=== PATIENT | male | born 1945 | race Caucasian/White ===

== ENCOUNTER 2017-04-30 02:30 | Inpatient (IN) | payer OTHER, MEDICARE ==
[~2017-04-30] VITALS: Ht 167.6 cm; Wt 82.6 kg
[~2017-04-30 02:30] MED LIST: ASPIRIN EC81 M1 PO; BEVESPI AEROS10.7 GM PO; COLACE100 M1 PO; CRESTOR10 M1 PO; FERROUS SULFAT325 M3 PO; FLONASE ALLERG9.9 ML
--- NOTE | 2017-04-30 09:56 | Operative Report ---
Operative/Inv Procedure Report Surgery Date: 04/30/17 Name of Procedure: Right total knee arthroplasty #2 grafting of large tibial cyst Pre-Operative Diagnosis: Right knee primary osteoarthritis Post-Operative Diagnosis: Same Estimated Blood Loss: less than 50ml Surgeon/Blending Supervisor: KAL PAYTON,KENDRICK MICHAEL Anesthesia: block Implants: Olinda triathlon total knee system-right size 5 femur, size 6 tibia, 11 mm cruciate retaining polyethylene, 31 patella Drains: None Specimens: Femoral, tibial, patellar bone Microbiology: Urine Tourniquet: 56 minutes Complications: None Condition: Stable Operative Indication: Patient is a 71-year-old man with a long history of gradually worsening right knee pain. On examination he was found to have a significant varus deformity and antalgic gait as well as significant varus thrust. X-rays confirmed severe end-stage osteoarthritis. Patient underwent conservative measures but minimal relief. He wished to proceed with total knee arthroplasty after risks benefits and expectations of the surgical procedure were discussed which included but were not limited to persistent knee pain, need for subsequent surgery, infection , DVT, injury to blood vessel or nerve, anesthesia risks. Operative/Procedure Note Note: Patient was brought to the operating room and transferred to the operating table. Once under appropriate anesthesia the right lower extremity was prepped and draped in standard fashion. Preoperative IV antibiotics were given prophylactically. The leg was elevated exsanguinated tourniquet was inflated. A standard anterior incision was made for anticipated medial parapatellar approach to the knee. Incision was taken down sharply to the underlying retinaculum. Incision was made in the medial retinaculum extending into the quadriceps tendon medially. Small effusion was evacuated. Osteophytes were excised. There was tricompartmental osteoarthritic disease. Severe end-stage eburnated bone along the medial compartment. Laxity in the lateral aspect of the knee. Remnants of the medial lateral meniscal tissues were excised. Remnants of the ACL was excised. Knee was flexed patella was subluxed. The drill was used to enter the intramedullary canal for the intramedullary guide for the distal femoral cut. A 6 valgus cut was chosen. This cut was made while protecting the soft tissues with retractors. The femur was then sized to a size 5. Size 5 cutting guide was pinned in place and the cuts were made in standard fashion. I was satisfied with the preparation of the femur. I then turned my attention to the tibia. I placed the external tibial alignment guide in place for my tibial cut. The cutting block was pinned in position for a neutral cut from medial to lateral and reproducing patient's posterior slow- paced on preoperative templating and intraoperative measurements. Soft tissues were protected medially laterally as well as posteriorly the PCL retractor. The PCL was recessed. A large cyst was evaluated in the posterior aspect of the tibia and the central portion is extended all the way to the back wall the tibia and extended to the mid tibia. Soft tissues debrided for and within the cyst. There was sclerotic bone surrounding this area. I then turned my attention to balancing the knee. There was significant laxity laterally compared to medially. Soft tissues were balanced at that point time. I then measured the tibia to a size 6. A trial was used with a size 6 tibia size 5 femur and a 9 mm polyethylene. The knee was taken out into full extension. It was good full extension and stability in all planes however appeared that patient would most likely require a 11 mm insert this was to be determined and confirm later on the case. I then turned my attention to the patella. The patella was measured and the appropriate thickness was removed and then restored with a size 31 patella. The 3 lug holes were drilled as medially as possible to maximize patellar tracking. I was satisfied with patellar tracking. This was would be checked again after the tourniquet was deflated. I then marked my rotation of tibia drilled my 2 lug holes for the femur and removed all instruments from the knee. I then used the tibial punch to complete the preparation of the tibia with the appropriate position of the punch to match rotation I was predetermined by the trial. I then removed all his from its and copious irrigation followed. I used the anterior chamfer bone to plug the distal femur to minimize postoperative hemarthrosis and postoperative swelling. We also morselized portions of the condyles and filled the cystic defect in the tibia. This was done after copious irrigation of the bony surfaces. Cement was being mixed on the back table. Once it was ready was applied to the dry clean bony surfaces of the tibia. The size 6 tibia was impacted in place with the excess cement removed with curettes. Cement was applied to the dry clean bony surfaces of the femur. The size 5 femur was impacted in place and excess cement was removed with curettes. The 9 mm insert was placed in the knee and the knee was taken out to full extension. Cement was applied to the dry clean bony surfaces of the patella. The size 31 patella was impacted in place and excess cement was removed with a knife. As cement was hardening I did appear articular pericapsular injection of a cocktail which included ropivacaine with epinephrine and Toradol for postoperative pain and inflammation management. Once the cement was hardening took the knee through range of motion. Small pieces of excess cement were removed with osteotome. I then trialed 11 mm insert. I was satisfied with the stability in all planes with the 11 mm insert. Full extension extension. Good stability in full extension mid flexion and full flexion to gravity. I then removed the trial component copious irrigated tibial tray. I major there was no bone fragments, cement fragments, soft tissue and then I impacted the definitive size 11 mm cruciate retaining polyethylene into place. The locking mechanism was confirmed. Took the knee through range of motion. Again I was satisfied with the stability in all planes. I then copiously irrigated the knee. The tourniquet was deflated and hemostasis was obtained. There was no need for a drain. I then copious irrigation irrigated the knee and every level closure was followed by copious irrigation. The retinacular incision was closed in the quadriceps tendon was closed with interrupted #1 Vicryl suture. Subcutaneous tissues closed in 2 layers with 2-0 Vicryl skin was closed running 3-0 Vicryl suture with the knee in flexion. Appropriate dressings were applied and patient was awakened and taken the recovery room in good condition. No intraoperative complications. Blood loss was less than 50 mL Discharge Disposition: PACU
[2017-04-30 13:23] VITALS: BP 110/70
[2017-04-30 14:22] VITALS: BP 120/80
--- NOTE | 2017-04-30 16:11 | PN- Orthopedic ---
Subjective Subjective: POSTOP CHECK no pain, feeling well, tolerating reg diet, OOB ambulating already, wants phillip out, no paresthesias, no cp/sob/n/v Objective Vital Signs and I&Os Vital Signs Date Time Temp Pulse Resp B/P B/P Pulse O2 O2 Flow FiO2 Mean Ox Delivery Rate 04/30 1441 Room Air Room Air 04/30 1439 97 Room Air Room Air 04/30 1422 97.2 88 18 120/80 98 Room Air 04/30 1323 97.7 63 20 110/70 94 Nasal 2.5L Cannula 04/30 1300 94 Nasal 2.5L Cannula Intake & Output 04/30 1600 04/30 0800 04/30 0000 04/29 1600 04/29 0800 04/29 0000 Intake Total 555 Output Total Balance 555 Intake, IV 75 Intake, Oral 480 Patient 182 lb Weight Weight Reported by Patient Measurement Method Physical Exam: GEN: NAD CARD: s1s2 RRR PULM: CTAB ABD: soft nt EXT: RLE palp pulses, dressing CDI, ONQ in place, +dorsi/plantar flexion, sensation intact/equal bl Assessment/Plan Assessment/Plan A: POD0 sp R TKR, stable, OOB ambulating. P: OOB with PT DC phillip coum per INR prn pain meds dc planning Core Measures/Miscellaneous Venous Thromboembolism VTE Risk Factors: Surgery VTE Contraindications: No Contraindications VTE Diagnosis: No Beta Kay Is Beta Kay a Home Med? No Antibiotics Is Patient on Antibiotics? Yes
[2017-04-30 16:31] VITALS: BP 122/70
[2017-04-30 18:46] VITALS: BP 128/84
[2017-04-30 22:12] VITALS: BP 154/84
[2017-05-01] VITALS (7 sets, daily range): BP systolic 90–160; BP diastolic 50–80
--- NOTE | 2017-05-01 07:50 | PN- Orthopedic ---
See Addendum Subjective Subjective: POD#1 S/P RIGHT TKA C/O UPPER RESP SXS NOT ALLOWING HIM TO GET SLEEP LAST NIGHT OTHERWISE NO MAJOR ISSUES DENEIS CP, SOB, NO N+V Objective Vital Signs and I&Os Vital Signs Date Time Temp Pulse Resp B/P B/P Pulse O2 O2 Flow FiO2 Mean Ox Delivery Rate 06/06 0740 98.3 96 20 120/80 92 Room Air 06/06 0400 98.6 98 20 132/68 93 Nasal 2.5L Cannula 06/06 0227 99.5 95 20 124/80 92 Nasal 2.0L Cannula 06/05 2212 99.0 94 18 154/84 91 06/05 1846 98.2 84 18 128/84 91 06/05 1631 98.7 84 20 122/70 93 06/05 1441 Room Air Room Air 06/05 1439 97 Room Air Room Air 06/ 1422 97.2 88 18 120/80 98 Room Air 06/05 1323 97.7 63 20 110/70 94 Nasal 2.5L Cannula / 1300 94 Nasal 2.5L Cannula Intake & Output 06/06 0800 06/06 0000 06/05 1600 06/05 0800 06/05 0000 06/04 1600 Intake Total 360 660 555 Output Total 450 300 Balance -90 360 555 Intake, IV 300 75 Intake, Oral 360 360 480 Output, Urine 450 300 Patient 182 lb Weight Weight Reported by Patient Measurement Method Physical Exam: CV: RRR LUNGS: CLEAR ABD: SOFT, +BS EXT: DRSG DRY DISTAL CMS INTACT BILAT NO CALF TENDERNESS Assessment/Plan Assessment/Plan ORTHO STABLE PLAN OOB WITH PT/STAIRS TODAY TITRATE COUMADIN DOSE FOR INR 2-3 F/U AM LABS HOME D/C PLANNING Core Measures/Miscellaneous Venous Thromboembolism VTE Risk Factors: Surgery VTE Contraindications: No Contraindications VTE Diagnosis: No Beta Kay Is Beta Kay a Home Med? No Antibiotics Is Patient on Antibiotics? Yes
[2017-05-01 08:43] LABS: ABSOLUTE BASOPHIL COUNT 0.1 /CUMM (0.0-0.2); ABSOLUTE EOSINOPHIL COUNT 0.1 /CUMM (0.0-0.7); ABSOLUTE GRANULOCYTE CT 8.8 /CUMM (1.4-6.5); ABSOLUTE LYMPH COUNT 1.5 /CUMM (1.2-3.4); ABSOLUTE MONOCYTE COUNT 1.5 /CUMM (0.10-0.60); BASOPHIL % 0.5 % (0.0-2.0); EOSINOPHIL % 0.6 % (0-5); GRANULOCYTE % 74.1 % (42.2-75.2); HEMATOCRIT 40.2 % (42-52); MEAN CORPUSCULAR HGB 28.3 PG (27.0-31.0); MEAN CORPUSCULAR HGB CONC 33.3 G/DL (33.0-37.0); MEAN CORPUSCULAR VOLUME 84.9 FL (80.0-94.0); MEAN PLATELET VOLUME 9.5 FL (7.4-10.4); PLATELET COUNT 187 /CUMM (130-400); RBC DISTRIBUTION WIDTH 14.2 % (11.5-14.5); RED BLOOD CELL CT 4.74 /CUMM (4.70-6.10); WHITE BLOOD CELL COUNT 11.9 /CUMM (4.8-10.8)
[2017-05-01 08:51] LABS: PT 13.3 SEC (9.4-12.5)
--- NOTE | 2017-05-01 15:32 | Patient Discharge Instructions ---
Discharge Instructions General Discharge Information You were seen/treated for: Right knee primary osteoarthritis You had these procedures: Surgery Date: 04/30/17 Name of Procedure: Right total knee arthroplasty #2 grafting of large tibial cyst Watch for these problems: FEVER>101.3, INCREASED PAIN, REDNESS/SWELLING/DRAINAGE Other wound care: DRY GUAZE DRESSING CHANGE DAILY. LEAVE WHITE STERI STRIPS IN PLACE. Diet Continue normal diet: Yes Recommended Diet: Regular Additional DIET Information: COUMADIN CONSIDERATIONS Activity Full Activity/No Limits: Yes Activity Self Limited: Yes Activity Limited to: Weight bear as tolerated Other activity limits: AMBULATE WITH ROLLING WALKER ASSISTANCE Acute Coronary Syndrome Inclusion Criteria At DC or during hospital stay patient has or had the following: ACS DIAGNOSIS No Discharge Core Measures Meds if any: Prescribed or Continued at Discharge Meds if any: NOT Prescribed or Continued at Discharge Congestive Heart Failure Inclusion Criteria At DC or during hospital stay patient has or had the following: CHF DIAGNOSIS No Discharge Core Measures Meds if any: Prescribed or Continued at Discharge Meds if any: NOT Prescribed or Continued at Discharge Cerebrovascular accident Inclusion Criteria At DC or during hospital stay patient has or had the following: CVA/TIA Diagnosis No Discharge Core Measures Meds if any: Prescribed or Continued at Discharge Meds if any: NOT Prescribed or Continued at Discharge Venous thromboembolism Inclusion Criteria VTE Diagnosis No VTE Type NONE VTE Confirmed by (Test) NONE Discharge Core Measures - Per Current guidelines, there needs to be overlap - treatment for the first 5 days of Warfarin therapy. - If discharged on Warfarin prior to 5 days of - overlap therapy, the patient will need to be - assessed for post discharge needs including - *Post discharge parental anticoagulation - *Warfarin and/or parental anticoagulation education - *Follow up date to check INR post discharge At least 5 days overlap therapy as Inpatient No Meds if any: Prescribed or Continued at Discharge Note: Overlap Therapy is Warfarin and Anticoagulant Meds if any: NOT Prescribed or Continued at Discharge
[2017-05-01] MEDS ORDERED: COUMADIN5 M2 PO (15:34)
[2017-05-01] MEDS ORDERED: PERCOCET 5-3251 EACH PO (15:34)
[2017-05-01] MEDS ORDERED: DOCUSATE SODIU100 M3 PO (15:34)
--- NOTE | 2017-05-01 15:38 | Surgical Discharge Summary ---
Visit Information Visit Dates Admission Date: 04/30/17 Discharge Date: 05/02/17 History of Present Illness Chief Complaint: Right knee primary osteoarthritis Medical History Blood Transfusion Hx: No Neurological: NONE EENT: NONE Cardiovascular: HYPERCHOLESTERMIA Respiratory: COPD Gastrointestinal: NONE Hepatic: NONE Renal: NONE Musculoskeletal: degen joint disease Psychiatric: NONE Endocrine: NONE Blood Disorders: NONE Cancer(s): prostate cancer, SKIN CA [employer]/Reproductive: NONE History of MRSA: No History of VRE: No History of CDIFF: No Isolation History: Standard Surgical History Pertinent Surgical History: TONSILLECTOMY PROSTATECTOMY ULNAR NERVE REPAIR SKIN CA EXCISION Psychosocial History Where Do You Live? Home Who Do You Live With? Spouse What is Your Primary Language? Thai Review of Systems: SEE H&P Hospital Course Course Attending Physician: KAL PAYTON,[facility] Primary Care Physician: LILIANA PAYTON,[facility] Course: Elective scheduled right total knee arthroplasty and grafting of large tibial cyst on 04/30/17 for right knee primary osteoarthritis by . Coumadin started post-operatively for blood clot risk reduction. Pain control transitioned from iv to oral medication. Seen and evaluated daily by PT, with the goal of going home with services on post-op day #2. Complications: None Allergies: Coded Allergies: lactose (GI UPSET 04/20/17) Disposition Summary Disposition Principal Diagnosis: Right knee primary osteoarthritis Additional Diagnosis: same, s/p Right total knee arthroplasty grafting of large tibial cyst Discharge Disposition: home health services Discharge Instructions General Discharge Information Code Status: Full Code Patient's Diet: regular diet as tolerated. coumadin considerations. Patient's Activity: weight bearing as tolerated. rolling walker assistance. Follow-Up Instructions/Appts: continue dry guaze dressing changes daily, right knee blood draws for PT/INR, goal INR 2-3. coumadin dosing accordingly continue PT follow up with as outpatient in 3-4 weeks Medications at Discharge Discharge Medications: Stop taking the following medications: Docusate Sodium (Colace) 100 MG CAPSULE ORAL DAILY Continue taking these medications: Aspirin (Ecotrin*) 81 MG TABLET. 1 Tablet ORAL DAILY Comments: NOT GIVEN IN HOSPITAL Ferrous Sulfate (Ferrous Sulfate) 325 MG (65 MG IRON) TABLET 1 Tablet ORAL DAILY Comments: Last Taken: 05/02/17 Time: 9AM Rosuvastatin Calcium (Crestor) 10 MG TABLET 1 Tablet ORAL DAILY Comments: NOT GIVEN IN HOSPITAL Glycopyrrolate/Formoterol Fum (Bevespi Aerosphere Inhaler) 9 MCG-4.8 MCG HFA.AER.AD 2 PUFF ORAL TWICE DAILY Comments: NOT GIVEN IN HOSPITAL Fluticasone Propionate (Flonase Allergy Relief) 50 MCG/ACTUATION SPRAY.SUSP DAILY Comments: NOT GIVEN IN HOSPITAL Start taking the following new medications: Docusate Sodium (Docusate Sodium) 100 MG CAPSULE 100 Milligram ORAL TWICE DAILY as needed for CONSTIPATION Days = 14 No Refills Instructions: STOOL SOFTENER, AVAILABLE OVER THE COUNTER Comments: Last Taken: 05/02/17 Time: 9AM Warfarin Sodium (Coumadin) 5 MG TABLET 5 Milligram ORAL DAILY Qty = 30 No Refills Instructions: DOSE ADJUSTMENT PER BLOOD DRAWS FOR PT/INR. GOAL INR 2-3. Comments: Last Taken: 05/01/17 Time: 5PM Oxycodone HCl/Acetaminophen (Percocet 5-325 MG Tablet) 5 MG-325 MG TABLET 1-2 Tablet ORAL EVERY 4-6 HOURS NEEDED as needed for PAIN CONTROL Qty = 36 No Refills Instructions: TAKE DIRECTED FOR PAIN CONTROL. DO NOT COMBINE WITH TYLENOL. Comments: Last Taken: 05/01/17 Time: 8AM Copies To: LILIANA PAYTON,KJ
[2017-05-02 06:03] VITALS: BP 144/68
--- NOTE | 2017-05-02 07:40 | PN- Orthopedic ---
See Addendum Subjective Subjective: Patient's pain is much better controlled today. He has no complaints. No acute events overnight, no fever or flulike illness Objective Vital Signs and I&Os Vital Signs Date Time Temp Pulse Resp B/P B/P Pulse O2 O2 Flow FiO2 Mean Ox Delivery Rate 05/02 0603 98.6 90 20 144/68 91 Nasal Cannula 05/02 0000 95 Nasal 3.0L Cannula 05/01 2224 98.1 100 20 160/80 95 /06 1733 112/68 05/01 1600 92 Nasal 3.0L Cannula 05/01 1400 98.3 82 18 104/50 92 Nasal 3.0L Cannula 05/01 1130 99.5 72 18 90/50 92 Nasal 3.0L Cannula 05/01 0800 Nasal 2.5L Cannula 05/01 0740 98.3 96 20 120/80 92 Room Air Intake & Output 05/02 0800 05/02 0000 05/01 1600 05/01 0800 05/01 0000 04/30 1600 Intake Total 440 800 360 660 555 Output Total 300 50 450 300 Balance 440 -300 750 -90 360 555 Intake, IV 200 500 300 75 Intake, Oral 240 300 360 360 480 Number 1 Bowel Movements Output, 50 Emesis Output, Urine 300 450 300 Patient 182 lb Weight Weight Reported by Patient Measurement Method Physical Exam: Well-developed well-nourished no apparent distress. HEENT: Atraumatic, extraocular motion intact Neck: Supple, no lymphadenopathy Respiratory: No respiratory distress Extremities: No edema RIGHT lower extremity dressing in place, Incision line is clean dry and intact with minimal bloody drainage. No signs of infection. Mild joint effusion Range of motion is 0-60. Compression wrap in place. ALPS in place Neurovascularly intact distally Bilateral calves are supple, nontender. Neuro: Alert and oriented x3 Psych: Mood affect normal, normal memory normal judgment. Skin: Warm and dry, no rash on exposed skin Results Last 48 Hours of Labs: Laboratory Tests 05/02 05/01 0600 0620 Chemistry Sodium (137 - 145 mmol/L) 137 Potassium (3.5 - 5.1 mmol/L) 4.4 Chloride (98 - 107 mmol/L) 103 Carbon Dioxide (22 - 30 mmol/L) 25 Anion Gap (5 - 16) 10 BUN (9 - 20 mg/dL) 15 Creatinine (0.7 - 1.2 mg/dL) 0.7 Estimated GFR (>60 ml/min) > 60 BUN/Creatinine Ratio (7 - 25 %) 21.4 Coagulation PT (9.4 - 12.5 SEC) Pending 13.3 H INR (0.90 - 1.17) Pending 1.27 H Hematology CBC w Diff Pending NO MAN DIFF REQ WBC (4.8 - 10.8 /CUMM) Pending 11.9 H RBC (4.70 - 6.10 /CUMM) Pending 4.74 Hgb (14.0 - 18.0 G/DL) Pending 13.4 L Hct (42 - 52 %) Pending 40.2 L MCV (80.0 - 94.0 FL) Pending 84.9 MCH (27.0 - 31.0 PG) Pending 28.3 RDW (11.5 - 14.5 %) Pending 14.2 Plt Count (130 - 400 /CUMM) Pending 187 MPV (7.4 - 10.4 FL) Pending 9.5 Gran % (42.2 - 75.2 %) 74.1 Lymphocytes % (20.5 - 51.1 %) 12.5 L Monocytes % (1.7 - 9.3 %) 12.3 H Eosinophils % (0 - 5 %) 0.6 Basophils % (0.0 - 2.0 %) 0.5 Absolute Granulocytes (1.4 - 6.5 /CUMM) 8.8 H Absolute Lymphocytes (1.2 - 3.4 /CUMM) 1.5 Absolute Monocytes (0.10 - 0.60 /CUMM) 1.5 H Absolute Eosinophils (0.0 - 0.7 /CUMM) 0.1 Absolute Basophils (0.0 - 0.2 /CUMM) 0.1 PUBS MCHC (33.0 - 37.0 G/DL) Pending 33.3 Assessment/Plan Assessment/Plan Postop day #2 status post right total knee arthroplasty Wean O2 Pain medication as needed DVT prophylaxis with Coumadin, adjust dose per INR-P Labs pending this morning Perioperative antibiotics completed Out of bed with physical therapy Possible discharge to home this afternoon as patient states that he would like to, and he feels well to go home today. We'll need to wean his O2 and check morning labs dressing changed today cont alps Core Measures/Miscellaneous Venous Thromboembolism VTE Risk Factors: Surgery VTE Contraindications: No Contraindications VTE Diagnosis: No Beta Kay Is Beta Kay a Home Med? No Antibiotics Is Patient on Antibiotics? Yes
[2017-05-02 07:52] LABS: ABSOLUTE BASOPHIL COUNT 0 /CUMM (0.0-0.2); ABSOLUTE EOSINOPHIL COUNT 0.5 /CUMM (0.0-0.7); ABSOLUTE GRANULOCYTE CT 10.2 /CUMM (1.4-6.5); ABSOLUTE MONOCYTE COUNT 1.4 /CUMM (0.10-0.60); BASOPHIL % 0.3 % (0.0-2.0); EOSINOPHIL % 3.5 % (0-5); GRANULOCYTE % 78.1 % (42.2-75.2); HEMATOCRIT 35.3 % (42-52); MEAN CORPUSCULAR HGB 28.7 PG (27.0-31.0); MEAN CORPUSCULAR HGB CONC 33.2 G/DL (33.0-37.0); MEAN CORPUSCULAR VOLUME 86.4 FL (80.0-94.0); MEAN PLATELET VOLUME 9.2 FL (7.4-10.4); PLATELET COUNT 174 /CUMM (130-400); RBC DISTRIBUTION WIDTH 14.1 % (11.5-14.5); RED BLOOD CELL CT 4.08 /CUMM (4.70-6.10); WHITE BLOOD CELL COUNT 13.1 /CUMM (4.8-10.8)
[2017-05-02 08:13] LABS: PT 16.4 SEC (9.4-12.5)
--- NOTE | 2017-05-02 08:44 | RADIOLOGY REPORT ---
EXAMINATION: XR KNEE, RIGHT CLINICAL INFORMATION: Right total knee arthroplasty. COMPARISON: None TECHNIQUE: Right knee, AP and lateral views. FINDINGS: The components of the total knee arthroplasty are in satisfactory position and there is normal alignment at the patellofemoral and tibiofemoral compartments. No evidence of acute periprosthetic fracture. There is postoperative soft tissue swelling and soft tissue emphysema of the anterior knee. IMPRESSION: Satisfactory position and alignment of components of the right total knee arthroplasty. No acute periprosthetic fracture.
== END 2017-05-02 12:59 | disposition home health service (06) | DRG 470 ==
LOC: SDA 02:30 → 2NA 02:30 → ENRESERV 10:18 → ENTRNSPT 12:02 → EDTRNSPTTYP 12:43 → EDTRNSPTSTS 12:43 → EDTRNSPT 12:43 → CMPTRNSPT 12:50 → 2NA 12:55 → ENPENDDIS 05-02 12:09 → 2NA 05-02 12:59
PROVIDERS: Physician Assistant; Physician Assistant Surgical; ADMIT Orthopaedic Surgery
PROC: 0SRC0J9 Replacement of Right Knee Joint with Synthetic Substitute, Cemented, Open Approach (ICD-10-PCS; principal; 2017-04-30)
PROC: 3E0T3BZ Introduction of Anesthetic Agent into Peripheral Nerves and Plexi, Percutaneous Approach (ICD-10-PCS; 2017-04-30)
DX: M17.11 Unilateral primary osteoarthritis, right knee (principal); J44.9 Chronic obstructive pulmonary disease, unspecified; C61 Malignant neoplasm of prostate; E78.5 Hyperlipidemia, unspecified; Z87.891 Personal history of nicotine dependence
CPT/HCPCS: 2NASP; 36415; 73560-RT; 82436; 87086; 88305; 97110-GO; 97116-GO; 97161-GP; 97530-GO; C1713; J0131; J0171; J1885; J2405; J2795; J3370; J7040

== ENCOUNTER 2017-12-01 00:42 | Inpatient (IN) | payer OTHER, MEDICARE ==
[~2017-12-01] VITALS: Ht 167.6 cm; Wt 73.5 kg
[~2017-12-01 00:42] MED LIST changes: +COUMADIN5 M2 PO; +DOCUSATE SODIU100 M3 PO; +PERCOCET 5-3251 EACH PO
--- NOTE | 2017-12-01 01:40 | ED MVC/FALL/TRAUMA COMPLAINT ---
History of Present Illness General Chief Complaint: Fall Stated Complaint: FALL, HIT HEAD, LAC TO LEFT EYEBROW Source: patient Exam Limitations: no limitations Vital Signs & Intake/Output Vital Signs & Intake/Output Vital Signs Date Time Temp Pulse Resp B/P B/P Pulse O2 O2 Flow FiO2 Mean Ox Delivery Rate 12/01 0136 98.5 93 20 150/72 94 Room Air Allergies Coded Allergies: lactose (GI UPSET 07/02/17) Reconcile Medications Aspirin (Ecotrin*) 81 MG TABLET.DR 1 TAB PO DAILY PROPHO (Reported) Docusate Sodium 100 MG CAPSULE 100 MG PO BID PRN CONSTIPATION STOOL SOFTENER, AVAILABLE OVER THE COUNTER Duloxetine HCl 60 MG CAPSULE.DR 1 CAP PO DAILY DEPRESSION (Reported) Ferrous Sulfate 325 MG (65 MG IRON) TABLET 1 TAB PO DAILY PRE OP (Reported) Fluticasone Propionate (Flonase Allergy Relief) 50 MCG/ACTUATION SPRAY.SUSP NASAL CONGESTION (Reported) Glycopyrrolate/Formoterol Fum (Bevespi Aerosphere Inhaler) 9 MCG-4.8 MCG HFA.AER.AD 2 PUFF PO BID COPD (Reported) Mirtazapine 15 MG TABLET 1 TAB PO QPM SLEEP HELP (Reported) Rosuvastatin Calcium (Crestor) 10 MG TABLET 1 TAB PO DAILY CHOLESTEROL ( Reported) Triage Nurses Notes Reviewed? yes Onset: Abrupt Duration: minute(s): Timing: single episode today Severity: mild Injuries/Fall Location: head Method of Injury: fall Loss of Consciousness: prolonged (minutes) Modifying Factors: Improves With: rest. Associated Symptoms: head injury, +LOC HPI: 72 yo gentleman in prior good health presents with a syncopal episode and a fall. Per his , he was in bed, got up to go to the kitchen for a cookie. She heard a loud bang and found him unconscious on the floor. He was unconcious for few minutes and then slowly aroused. He was confused for several minutes afterwards. He has no recollection of the event - whether he had syncopal symptoms, palpitations, chest pain. He notes that he hit his left forehead likely on a counter or table. He is uncertain if he passed out from the blow or previously. He notes that he is feeling better presently. Past History Travel History Traveled to [place] past 21 day No Medical History Any Pertinent Medical History? 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 No Review of Systems Review of Systems Constitutional: Reports: no symptoms. Eyes: Reports: no symptoms. Ears, Nose, Throat, Mouth: Reports: no symptoms. Respiratory: Reports: no symptoms. Cardiovascular: Reports: no symptoms. Gastrointestinal/Abdominal: Reports: no symptoms. Genitourinary: Reports: no symptoms. Musculoskeletal: Reports: no symptoms. Skin: Reports: no symptoms. Neurological/Psychological: Reports: no symptoms. All Other Systems: Reviewed and Negative Physical Exam Physical Exam General Appearance: well developed/nourished, mild distress Head: let periorbit with 2cm vertial laceration, well approximated, non tender, no sign of infection. Eyes: Bilateral: normal appearance, PERRL, EOMI. Ears, Nose, Throat, Mouth: hearing grossly normal, moist mucous membrane Neck: normal inspection, supple, full range of motion Respiratory: normal breath sounds, chest non-tender, no respiratory distress, quiet respiration, lungs clear Cardiovascular: regular rate/rhythm Gastrointestinal: normal bowel sounds, soft, non-tender Back: normal inspection, normal range of motion Extremities: normal range of motion Neurologic/Psych: no motor/sensory deficits, awake, alert, oriented x 3 Skin: intact, normal color, warm/dry Core Measures ACS in differential dx? No CVA/TIA Diagnosis No Sepsis Present: No Sepsis Focused Exam Completed? No Progress Differential Diagnosis: dysrhythmia vs other. Plan of Care: Orders Procedure Date/time Status Nothing by Mouth 12/01 B Active EKG 12/01 0355 Active Patient Data 12/01 346 Active Saline Lock 12/[address] in observation 12/01 343 Active Misc Message 12/01 343 Active ED Holding Orders 12/01 343 Active Vital Signs 12/01 343 Active Code Status 12/01 343 Active EKG 12/01 0253 Active TROPONIN LEVEL 12/01 014 Complete COMPREHENSIVE METABOLIC PANEL 12/01 147 Complete CBC WITHOUT DIFFERENTIAL 12/01 147 Complete Current Medications Sig/Jackie Start time Last Medication Dose Stop Time Status Admin Tetanus/Diphtheria 0.5 ML ONCE ONE 12/01 414 UNVr Toxoids Adsorbed 12/01 415 (Decavac) Laboratory Tests 12/01/178: Anion Gap 10, Estimated GFR > 60, BUN/Creatinine Ratio 26.7 H, Glucose 119 H, Calcium 9.3, Total Bilirubin 0.4, AST 39, ALT 44, Alkaline Phosphatase 63, Troponin I < 0.01, Total Protein 6.1 L, Albumin 3.7, Globulin 2.4, Albumin/ Globulin Ratio 1.5, CBC w Diff NO MAN DIFF REQ, RBC 5.40, MCV 87.7, MCH 28.0, RDW 15.7 H, MPV 8.4, Gran % 80.2 H, Lymphocytes % 12.2 L, Monocytes % 5.9, Eosinophils % 1.2, Basophils % 0.5, Absolute Granulocytes 11.3 H, Absolute Lymphocytes 1.7, Absolute Monocytes 0.8 H, Absolute Eosinophils 0.2, Absolute Basophils 0.1, PUBS MCHC 32.0 L Diagnostic Imaging: Viewed by Me: Radiology Read, CT Scan. Discussed w/RAD: Radiology Read, CT Scan. Radiology Impression: head ct... no acute disease PATIENT: MCKENNA MILLER JR PRESENT AGE: 72 PATIENT ACCOUNT NO: [id number] : LOCATION: [facility] ORDERING PHYSICIAN: Lucho Wu MD SERVICE DATE: 12/01/17 EXAM TYPE: CAT - CT CERV SPINE WO IV CONTRAST; CT HEAD WO IV CONTRAST; XRY-PORTABLE CHEST XRAY EXAMINATION: CT HEAD WITHOUT CONTRAST CT CERVICAL SPINE WITHOUT CONTRAST XR CHEST, ONE VIEW CLINICAL INFORMATION: Fall, head injury, loss of consciousness. Status post laminectomy. COMPARISON: MRI brain and cervical spine dated 08/22/2017. Chest radiograph dated 08/20/2017. TECHNIQUE: Contiguous axial imaging was performed from the skull base to vertex without intravenous administration of contrast. Multidetector helical imaging was performed through the cervical spine. Coronal and sagittal reformats were completed at the technologist workstation. DLP: 1037 mGy-cm. In addition an AP portable chest radiograph was performed. FINDINGS: HEAD: There is no evidence of acute intracranial hemorrhage or territorial infarction. No abnormal mass effect or midline shift is seen. Cortical pagan to white matter differentiation is well preserved without evidence of territorial infarct. No extra-axial fluid collections are identified. No hydrocephalus. Left frontal scalp contusion is noted without underlying fracture. The mastoid air cells and visualized portions of the paranasal sinuses are well aerated. CERVICAL SPINE: No acute fracture or dislocation is identified in the cervical spine. Bilateral C6 laminectomies are noted. There are multilevel degenerative changes characterized by diffuse loss of intervertebral disc space height, endplate irregularity, and multilevel disc osteophyte complex formation. Vertebral body heights are maintained. The atlantoaxial articulation is normally maintained. No prevertebral soft tissue swelling. The lung apices are clear. Chest x-ray: The lungs are hypoexpanded with associated central bronchovascular prominence. Streaky left basal opacities are noted. Cardiac mediastinal silhouette appears stable. No pneumothorax. No acute osseous abnormalities. IMPRESSION: 1. Left frontal scalp contusion. No acute intracranial pathology. 2. No evidence of acute cervical spine traumatic injury. Multilevel degenerative change with bilateral C6 laminectomies. 3. Hypoexpanded lungs with central bronchovascular prominence. Streaky left basal opacity which is nonspecific and may represent subsegmental atelectasis. DICTATED BY: Joel David MD DATE/TIME DICTATED:12/01/17225 BLACK LEATHER TRIMMER:MARVIN DATE/TIME TRANSCRIBED:12/01/17225 CONFIDENTIAL, DO NOT COPY WITHOUT APPROPRIATE AUTHORIZATION. <Electronically signed in Other Vendor System> SIGNED BY: Joel David MD 12/01/17236 CXR Impression: sub segmental atelectasis Initial ED EKG: non specific t wave changes. Departure Departure Disposition: STILL A PATIENT Condition: Stable Clinical Impression Primary Impression: Syncope Secondary Impressions: Facial laceration, Head injury Referrals: Gregory Camacho MD (PCP/Family) Departure Forms: Customer Survey General Discharge Information Observation Note Spoke With: Nehemiah Dhaliwal MD Physician Advisor Notified: KARON PAYTON,SHANTA Jovel Place Patient In: Non-ED OBS Care Area Rationale for Observation: My rational for observation is as follows . pt with syncopal episode, likely of multifactorial etiology. pt recently on remeron, also with diaphragm issues. Also on the diff dx is dysrhythmia. Pt merits serial trops/ekg and monitoring. Procedures Laceration/Wound Repair Laceration/Wound Repair: Wound Location: face Wound's Depth, Shape: irregular, into muscle Wound Length (cm): 2 Irrigated w/ Saline (ccs): 100 Wound Repaired With: Steri-strips, Dermabond
[2017-12-01] MEDS ORDERED: DULOXETINE HCL60 MG PO (02:02)
[2017-12-01] MEDS ORDERED: MIRTAZAPINE15 M2 PO (02:02)
--- NOTE | 2017-12-01 02:37 | CT SCAN REPORT ---
EXAMINATION: CT HEAD WITHOUT CONTRAST CT CERVICAL SPINE WITHOUT CONTRAST XR CHEST, ONE VIEW CLINICAL INFORMATION: Fall, head injury, loss of consciousness. Status post laminectomy. COMPARISON: MRI brain and cervical spine dated 08/22/2017. Chest radiograph dated 08/20/2017. TECHNIQUE: Contiguous axial imaging was performed from the skull base to vertex without intravenous administration of contrast. Multidetector helical imaging was performed through the cervical spine. Coronal and sagittal reformats were completed at the technologist workstation. DLP: 1037 mGy-cm. In addition an AP portable chest radiograph was performed. FINDINGS: HEAD: There is no evidence of acute intracranial hemorrhage or territorial infarction. No abnormal mass effect or midline shift is seen. Cortical pagan to white matter differentiation is well preserved without evidence of territorial infarct. No extra-axial fluid collections are identified. No hydrocephalus. Left frontal scalp contusion is noted without underlying fracture. The mastoid air cells and visualized portions of the paranasal sinuses are well aerated. CERVICAL SPINE: No acute fracture or dislocation is identified in the cervical spine. Bilateral C6 laminectomies are noted. There are multilevel degenerative changes characterized by diffuse loss of intervertebral disc space height, endplate irregularity, and multilevel disc osteophyte complex formation. Vertebral body heights are maintained. The atlantoaxial articulation is normally maintained. No prevertebral soft tissue swelling. The lung apices are clear. Chest x-ray: The lungs are hypoexpanded with associated central bronchovascular prominence. Streaky left basal opacities are noted. Cardiac mediastinal silhouette appears stable. No pneumothorax. No acute osseous abnormalities. IMPRESSION: 1. Left frontal scalp contusion. No acute intracranial pathology. 2. No evidence of acute cervical spine traumatic injury. Multilevel degenerative change with bilateral C6 laminectomies. 3. Hypoexpanded lungs with central bronchovascular prominence. Streaky left basal opacity which is nonspecific and may represent subsegmental atelectasis.
[2017-12-01 02:41] LABS: ABSOLUTE BASOPHIL COUNT 0.1 /CUMM (0.0-0.2); ABSOLUTE EOSINOPHIL COUNT 0.2 /CUMM (0.0-0.7); ABSOLUTE GRANULOCYTE CT 11.3 /CUMM (1.4-6.5); ABSOLUTE LYMPH COUNT 1.7 /CUMM (1.2-3.4); ABSOLUTE MONOCYTE COUNT 0.8 /CUMM (0.10-0.60); BASOPHIL % 0.5 % (0.0-2.0); EOSINOPHIL % 1.2 % (0-5); GRANULOCYTE % 80.2 % (42.2-75.2); HEMATOCRIT 47.4 % (42-52); MEAN CORPUSCULAR VOLUME 87.7 FL (80.0-94.0); MEAN PLATELET VOLUME 8.4 FL (7.4-10.4); PLATELET COUNT 261 /CUMM (130-400); RBC DISTRIBUTION WIDTH 15.7 % (11.5-14.5); WHITE BLOOD CELL COUNT 14.1 /CUMM (4.8-10.8)
--- NOTE | 2017-12-01 04:08 | History & Physical ---
Therese PAYTON,[facility] 12/01/17 0408: General Information and [facility] MD Statement: I have seen and personally examined MCKENNA REYES JR and documented this H&P. The patient is a 72 year old M who presented with a patient stated chief complaint of [syncopal attack]. Source of Information: patient, family Exam Limitations: no limitations History of Present Illness: Mr. Reyes is 72 year old male with chief complain of syncopal episode and fall. Patient has past medical history significant for hyperlipidemia, degenerative disc disease with severe central canal stenosis and cord compression status post surgical decompression in September 2017, osteoarthritis of right knee status post knee replacement April 2017, prostate cancer status post excision 2012, skin cancer. History was obtained from patient and his . Patient reported that he woke up around 1:30 a.m. and decided to go get something to eat from the kitchen, denied feeling hungry or craving for sugar, he didn't feel any weakness, numbness, dizziness, blurry vision, chest pain, palpitation or shortness of breath, went to the kitchen and all of a sudden lost consciousness and wasn't able to remember what exactly happened to him. heared a bang and found him on the floor, blood around his face from a laceration on the lateral surface of left eyebrow. didn't notice tonic- clonic movement nor urinary or stool incontinence. A few minutes later patient woke up but was disoriented, and gain his orientation couple of minutes later. Patient was brought in by his . He denied any recent history of infection, history of poor oral intake, nausea or vomiting, diarrhea, increased urine frequency or dysuria, weakness, numbness, tinnitus, dizziness. No previous history of similar episodes. Patient follow-up with neurology and neurosurgery for the spinal cord compression, procedure was uneventfull in September 2017, history of left upper extremity weakness. He follow up cyn Levy MD for "diaphragmatic dysfunction" that caused him shortness of breath on exertion as mild as changing clothes, orthopnea but no paroxysmal nocturnal dyspnea. Urology for prostate cancer and Dr. Talbert for preprocedure clearance. History of echocardiogram and stress test 2017 for surgical clearance within normal per patient. Patient denied history of smoking, used to drink 2 drinks of white wine in a week however didn't drink in the last couple of weeks, no ilict drugs. Allergies/Medications Allergies: Coded Allergies: lactose (GI UPSET 07/02/17) Home Med list Albuterol Sulfate (Proair Hfa) 90 MCG HFA.AER.AD 2 PUF INH Q4-6 PRN PRN copd (Reported) Docusate Sodium 100 MG CAPSULE 100 MG PO BID PRN CONSTIPATION STOOL SOFTENER, AVAILABLE OVER THE COUNTER Duloxetine HCl 60 MG CAPSULE.DR 1 CAP PO DAILY DEPRESSION (Reported) Fluticasone Propionate (Flonase Allergy Relief) 50 MCG/ACTUATION SPRAY.SUSP nasal congestion (Reported) Glycopyrrolate/Formoterol Fum (Bevespi Aerosphere Inhaler) 9 MCG-4.8 MCG HFA.AER.AD 2 PUFF PO BID COPD (Reported) Mirtazapine 15 MG TABLET 1 TAB PO QPM SLEEP HELP (Reported) Rosuvastatin Calcium (Crestor) 10 MG TABLET 1 TAB PO DAILY CHOLESTEROL ( Reported) Past History Travel History Traveled to [place] past 21 day No Medical History Neurological: NONE EENT: NONE Cardiovascular: HYPERCHOLESTERMIA Respiratory: COPD Gastrointestinal: NONE Hepatic: NONE Renal: NONE Musculoskeletal: degen joint disease Psychiatric: NONE Endocrine: NONE Blood Disorders: NONE Cancer(s): prostate cancer, SKIN CA 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 EENTM: Denies: blurred vision, ear pain, nasal congestion, nasal pain, throat pain. Cardiovascular: Reports: orthopena, syncope. Denies: chest pain, palpitations. Respiratory: Reports: orthopnea, short of breath. Denies: cough, sputum production, wheezing. GI: Denies: abdominal pain, constipation, diarrhea, nausea, vomiting. Genitourinary: Denies: dysuria. Musculoskeletal: Denies: back pain, joint pain, muscle pain. Skin: Denies: rash. Neurological/Psychological: Denies: anxiety, confusion, headache, numbness, tingling, tremors. Hematologic/Endocrine: Denies: bruising. Exam & Diagnostic Data Last 24 Hrs of Vital Signs/I&O Vital Signs Date Time Temp Pulse Resp B/P B/P Pulse O2 O2 Flow FiO2 Mean Ox Delivery Rate 12/01 0444 98.5 111 20 120/71 93 Nasal 2.0L Cannula 12/01 0136 98.5 93 20 150/72 94 Room Air Intake & Output 12/01 0800 12/01 0000 11/30 1600 Intake Total Output Total Balance Patient 73.482 kg Weight Weight Reported by Patient Measurement Method Physical Exam General Appearance Alert, Oriented X3, Cooperative, No Acute Distress, frustrated Skin No Rashes Skin Temp/Moisture Exam: Warm/Dry HEENT Atraumatic, PERRLA, EOMI, Mucous Membr. moist/pink Neck Supple Lymphatic No cervical lymphadenopathy Cardiovascular Regular Rate, Normal S1, Normal S2, No Murmurs Lungs Clear to Auscultation, Decrease air entery of left lung Abdomen Normal Bowel Sounds, Soft, No Tenderness Neurological Normal Speech, Strength at 5/5 X4 Ext, Normal Tone, Sensation Intact, Cranial Nerves 3-12 NL, Hyperreflexia x4 clonus fasculation Extremities No Clubbing, No Cyanosis, No Edema, Normal Pulses Assessment/Plan Assessment: Mr. Reyes is 72 year old male with chief complain of syncopal episode and fall. Patient has past medical history significant for hyperlipidemia, degenerative disc disease with severe central canal stenosis and cord compression status post surgical decompression in September 2017, osteoarthritis of right knee status post knee replacement April 2017, prostate cancer status post excision 2012, skin cancer. On admission, vital signs 98.5, blood pressure 150/72, pulse 93 regular, respiratory rate 20 saturating 94% room air Significant for leukocytosis of 14.1 with left shift but no bands, electrolytes within normal, troponin is negative Chest x-ray: The lungs are hypoexpanded with associated central bronchovascular prominence. Streaky left basal opacities are noted. Cardiac mediastinal silhouette appears stable. No pneumothorax. No acute osseous abnormalities. CT head and cervical spine without contrast IMPRESSION: 1. Left frontal scalp contusion. No acute intracranial pathology. 2. No evidence of acute cervical spine traumatic injury. Multilevel degenerative change with bilateral C6 laminectomies. 3. Hypoexpanded lungs with central bronchovascular prominence. Streaky left basal opacity which is nonspecific and may represent subsegmental atelectasis. Problem list #Syncopal attack #Sinus tachycardia #Abnormal neuro exam with hyperreflexia 4, fasculation and clonus with possible diagnosis of amyotrophic lateral sclerosis #Shortness of breath and orthopnea in setting of dysfunctional diaphragm #Leukocytosis that could be reactive Plan -Admit to telemetry floor -Vital signs every shift -Obtain orthostatic measurement -Add on prolactin -Obtain d-dimer -Echocardiogram -Cardiology consultation -Troponin and EKG -Coagulation profile -TRC -Continue home medication atorvastatin, albuterol, Flonase, Cymbalta -Code full -DVT prophylaxis Lovenox -Diet regular As Ranked By This Provider Problem List: 1. Syncope Core Measures/Misc (08/12) Acute Coronary Syndrome ACS Diagnosis: No Congestive Heart Failure Congestive Heart Failure Diagnosis No Cerebrovascular Accident CVA/TIA Diagnosis: No VTE (View Protocol) VTE Risk Factors Age>40 No Mechanical VTE Prophylaxis d/t N/A MechProphylax Ordered No VTE Pharm Prophylaxis d/t NA PharmProphylax ordered Sepsis (View protocol) Sepsis Present: No Nehemiah Dhaliwal 12/01/17 0712: Attending MD Review Statement Attending Statement Attending MD Statement: examined this patient, discuss w/resident/PA/MEDICAL LIBRARY ASSISTANT, agreed w/resident/PA/MEDICAL LIBRARY ASSISTANT, discussed with family, reviewed EMR data (avail), reviewed images, amended to note Attending Assessment/Plan: CC: Syncope and collapse PMH: HLD, degenerative disease, severe central canal stenosis and cord compression S/P surgical decompression in September 2017, S/P right total knee replacement, left-sided diaphragmatic Paralysis 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 Vitals: Afebrile, mildly tachycardic 110s, RR 20, blood pressure 150/72, saturating 94% on 2 L NC On exam: A O 3, cooperative, no acute distress, neck supple, JVD normal, no lymphadenopathy, mucosa moist, decreased strength left upper extremity, 4/5, muscle twitching in all muscle groups including upper arm muscles thigh muscles, hyperreflexic with clonus, no dependent edema, no obvious skin rashes or inflammation , legs unequal R> L CVS: S1-S2, RRR. RS: Decreased air entry on left side,. Abdomen: Soft, NT, ND, bowel sounds present. Labs: WBC 14.1, Neutrophils 80%, no band, hemoglobin 15.1, hematocrit 47.4, BMP unremarkable except bicarbonate 31, troponin less than 0.01, INR 1.07 CT head, CT cervical spine, chest x-ray reviewed 1. Left frontal scalp contusion. No acute intracranial pathology. 2. No evidence of acute cervical spine traumatic injury. Multilevel degenerative change with bilateral C6 laminectomies. 3. Hypoexpanded lungs with central bronchovascular prominence. Streaky left basal opacity which is nonspecific and may represent subsegmental atelectasis. ECG: ? Q waves 2 3 aVF Assessment and plan 72-year-old male presented in ER for sudden fall and loss of consciousness. From description of the fall it appears to be syncope and collapse, there is no prodrome, there is no chest pain palpitations shortness of breath after the episode, mild confusion after waking up but there is no seizure-like activity noted, no bladder or bowel incontinence, no tongue bites. Physical exam unremarkable except twitching of muscles, hyperreflexia and clonus (patient is being evaluated for that with EMG, they're evaluating for ALS as well) ECG unremarkable, labs unremarkable. Given the abrupt fall and collapse arrhythmias should be ruled out, he would benefit from Observation in telemetry for evaluation of the syncopal episode. Less likely vasovagal. Dehydration as a possibility as patient did not drink anything other than a soda the whole day, blood pressure is normal, she check orthostatics. Only change in medication and starting the Remeron, which cannot explain the symptoms.. , PE should be ruled out, less possibility with low well's score but patient has an equal swelling on lower extremity right more than left probably secondary to surgery. + Syncope and collapse + Laceration on left forehead + History of HLD, degenerative disease, severe central canal stenosis and cord compression S/P surgical decompression in September 2017, S/P right total knee replacement, left-sided diaphragmatic Paralysis - Place in observation on telemetry - Continuous telemetry monitoring - Serial troponin and EKG - Check d-dimer and prolactin to the sample in lab - 2-D echocardiogram - Orthostatic vitals - Cardiology consult in a.m. - Check magnesium, phosphorus, CPK - DVT prophylaxis - Pain control
[2017-12-01] MEDS ORDERED: PROAIR HFA8.5 GM INH (05:23)
[2017-12-01 06:17] LABS: PT 11.2 SEC (9.4-12.5); PTT 31 SEC (25-37)
--- NOTE | 2017-12-01 16:08 | PN- Att Addend ---
Attending Addendum Attending Brief Note S: The patient denied any further syncope or symptoms other than fatigue. Admits po intake has been only fair. Noted to be tachycardic on monitor (100-110). O: VS: Vital Signs Date Time Temp Pulse Resp B/P B/P Pulse O2 O2 Flow FiO2 Mean Ox Delivery Rate 12/01 1711 98.7 96 20 130/60 93 Nasal 2.0L Cannula 12/01 1625 98.9 95 18 120/72 95 Room Air 12/01 1402 99.0 94 20 121/80 94 Nasal Cannula 12/01 1212 98.1 98 20 133/74 93 Nasal 2.0L Cannula 12/01 1017 98.2 99 20 156/64 93 Nasal 2.0L Cannula 12/01 0637 114 150/67 12/01 0625 98.4 110 20 128/79 93 Nasal 3.0L Cannula 12/01 0444 98.5 111 20 120/71 93 Nasal 2.0L Cannula 12/01 0136 98.5 93 20 150/72 94 Room Air Intake & Output 12/01 1600 12/01 0800 12/01 0000 Intake Total Output Total Balance Patient 162 lb Weight Weight Reported by Patient Measurement Method Current Medications Sig/Jackie Start time Last Medication Dose Route Stop Time Status Admin Acetaminophen 650 MG Q6P PRN 12/01 0515 AC PO Albuterol Sulfate 2 PUF Q4-6 PRN PRN 12/01 0530 AC INH Atorvastatin Calcium 40 MG 1700 12/01 1700 AC PO Budesonide/ 2 PUF BID 12/01 1100 AC 12/01 Formoterol Fumarate INH 1100 Duloxetine HCl 60 MG DAILY 12/01 1000 AC 12/01 PO 0912 Enoxaparin Sodium 40 MG DAILY 12/01 1000 AC 12/01 SC 0911 Fluticasone 2 SPRAY DAILY PRN 12/01 0530 AC Propionate ARACELI Non-Formulary 0 BID 12/01 1000 DC Medication ANY Sodium Chloride 1,000 ML Q10H 12/01 1430 AC 12/01 IV 1718 Tetanus/Diphtheria 0 .STK-MED ONE 12/01 0446 DC Toxoids Adsorbed IM Tetanus/Diphtheria 0.5 ML ONCE ONE 12/01 0415 DC 12/01 Toxoids Adsorbed IM 12/01 0416 0448 Tiotropium [place] 1 PUF DAILY 12/01 1100 AC 01/06 INH 1100 Physical Exam: HEENT: masood- dry mucosa Neck: no JVD/bruits Chest: clear Cor: tachy, reg, nl S1, S2 w/o murm Abd: BS+, soft, NT Ext: no edema Neuro: alert & oriented, non-focal Labs: Laboratory Tests 12/01/17 0835: Troponin I < 0.01 12/01/17 0725: Urine Color YEL, Urine Clarity CLEAR, Urine pH 6.0, Ur Specific [place] >= 1.030 , Urine Protein NEG, Urine Ketones NEG, Urine Nitrite NEG, Urine Bilirubin NEG, Urine Urobilinogen 0.2, Ur Leukocyte Esterase NEG, Ur Microscopic EXAM NOT REQUIRED, Urine Hemoglobin NEG, Urine Glucose NEG 12/01/17 0545: PT 11.2, INR 1.07, APTT 31, D-Dimer High Sensitivity 237 12/01/17 0513: Methadone Screen Cancelled, Barbiturate Screen Cancelled, Ur Phencyclidine Scrn Cancelled, Amphetamines Screen Cancelled, U Benzodiazepines Scrn Cancelled, Urine Cocaine Screen Cancelled, Urine Cannabis Screen Cancelled 12/01/17 0228: Anion Gap 10, Estimated GFR > 60, BUN/Creatinine Ratio 26.7 H, Glucose 119 H, Calcium 9.3, Phosphorus 4.1, Magnesium 1.8, Total Bilirubin 0.4, AST 39, ALT 44, Alkaline Phosphatase 63, Creatine Kinase 472 H, Troponin I < 0.01, Total Protein 6.1 L, Albumin 3.7, Globulin 2.4, Albumin/Globulin Ratio 1.5, Prolactin 9.3, CBC w Diff NO MAN DIFF REQ, RBC 5.40, MCV 87.7, MCH 28.0, RDW 15.7 H, MPV 8.4, Gran % 80.2 H, Lymphocytes % 12.2 L, Monocytes % 5.9, Eosinophils % 1.2, Basophils % 0.5, Absolute Granulocytes 11.3 H, Absolute Lymphocytes 1.7, Absolute Monocytes 0.8 H, Absolute Eosinophils 0.2, Absolute Basophils 0.1, PUBS MCHC 32.0 L Impression/Plan: #S/P Syncope- etiology still unclear. No focal neuro symptoms. Neurology input appreciated. Unlikely to represent seizure. Noted baseline sinus tachycardia on monitor. The patient had seen Dr. Mcmahon for cardiac clearance prior to his recent surgery. Plan: Continue telemetry monitoring at present. IV hydration. Observe for further symptoms. #Diphragmatic Paralysis/Hypoxemia- ? pulse ox 93% on 2L. With tachycardia and syncope concern regarding pulmonary embolism, however D-dimer is low. Patient may need home oxygen. Plan: Agree with overnight pulse ox - pulmonary eval in morning (Dr. Levy is his pulmonary MD). Lovenox as ordered.
[2017-12-01 17:11] VITALS: BP 130/60
--- NOTE | 2017-12-01 17:32 | Cons- Neurology ---
General Information and HPI Consulting Request Date of Consult: 12/01/17 Requested By: Nehemiah Dhaliwal MD History of Present Illness: 72-year-old male presents following an episode of unwitnessed fall and blunt head trauma. The patient states that several minutes after arising from bed, going to the kitchen and beginning to eat a cookie, he abruptly fell. His heard a thud from the other room and was quickly on the scene. There were no reported involuntary movements. He suffered mild facial trauma. He denies any prior history of syncope or seizure. No recent intercurrent illness. He denies palpitations. On the way to the floor, nursing has noted an irregular heartbeat. Allergies/Medications Allergies: Coded Allergies: lactose (GI UPSET 07/02/17) Home Med List: Albuterol Sulfate (Proair Hfa) 90 MCG HFA.AER.AD 2 PUF INH Q4-6 PRN PRN copd (Reported) Docusate Sodium 100 MG CAPSULE 100 MG PO BID PRN CONSTIPATION STOOL SOFTENER, AVAILABLE OVER THE COUNTER Duloxetine HCl 60 MG CAPSULE.DR 1 CAP PO DAILY DEPRESSION (Reported) Fluticasone Propionate (Flonase Allergy Relief) 50 MCG/ACTUATION SPRAY.SUSP nasal congestion (Reported) Glycopyrrolate/Formoterol Fum (Bevespi Aerosphere Inhaler) 9 MCG-4.8 MCG HFA.AER.AD 2 PUFF PO BID COPD (Reported) Mirtazapine 15 MG TABLET 1 TAB PO QPM SLEEP HELP (Reported) Rosuvastatin Calcium (Crestor) 10 MG TABLET 1 TAB PO DAILY CHOLESTEROL ( Reported) Review of Systems Review of Systems: Chronic shortness of breath for which she sees Dr. Levy no recent fever, chills , rash, diplopia, dysarthria, dysphagia, chest pain, palpitations, vomiting, vertigo, gait ataxia, joint inflammation or bleeding disturbance Past History Travel History Traveled to [place] past 21 day No Medical History Neurological: NONE EENT: NONE Cardiovascular: HYPERCHOLESTERMIA Respiratory: COPD Gastrointestinal: NONE Hepatic: NONE Renal: NONE Musculoskeletal: degen joint disease Psychiatric: NONE Endocrine: NONE Blood Disorders: NONE Cancer(s): prostate cancer, SKIN CA DOUBLE BACKER/Reproductive: NONE Surgical History Surgical History: TONSILLECTOMY PROSTATECTOMY ULNAR NERVE REPAIR SKIN CA EXCISION Exam & Diagnostic Data Vital Signs and I&O Vital Signs Date Time Temp Pulse Resp B/P B/P Pulse O2 O2 Flow FiO2 Mean Ox Delivery Rate 12/01 1711 98.7 96 20 130/60 93 Nasal 2.0L Cannula 12/01 1625 98.9 95 18 120/72 95 Room Air 12/01 1402 99.0 94 20 121/80 94 Nasal Cannula 12/01 1212 98.1 98 20 133/74 93 Nasal 2.0L Cannula 12/01 1017 98.2 99 20 156/64 93 Nasal 2.0L Cannula 12/01 0637 114 150/67 12/01 0625 98.4 110 20 128/79 93 Nasal 3.0L Cannula 12/01 0444 98.5 111 20 120/71 93 Nasal 2.0L Cannula 12/01 0136 98.5 93 20 150/72 94 Room Air Intake & Output 12/01 1600 12/01 0800 12/01 0000 Intake Total Output Total Balance Patient 162 lb Weight Weight Reported by Patient Measurement Method Pleasant elderly gentleman in no acute distress. Higher cortical function was intact. Speech was fluent. Head was normocephalic. There was an early left periorbital ecchymosis. Pupils were equal and reactive. Extraocular movements were full. Face was symmetric. Hearing was normal. Tongue was midline. Motor examination showed no focal or lateralizing weakness. Deep tendon reflexes were symmetric. Plantar responses were equivocally extensor bilaterally. Gait was untested. CT scan of head showed no acute abnormalities. 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 Cardiac etiology should be explored. Should no obvious underlying reason for his syncope be discovered, EEG would then be recommended however yield expected to be low. Recommendations: As above Please feel free to call with any further questions. Consult Acknowledgment - Thank you for your consult request.
[2017-12-01 22:30] VITALS: BP 118/64
[2017-12-02 06:30] VITALS: BP 142/88
[2017-12-02 07:46] LABS: ABSOLUTE BASOPHIL COUNT 0.1 /CUMM (0.0-0.2); ABSOLUTE EOSINOPHIL COUNT 0.3 /CUMM (0.0-0.7); ABSOLUTE GRANULOCYTE CT 6.9 /CUMM (1.4-6.5); ABSOLUTE LYMPH COUNT 1.8 /CUMM (1.2-3.4); ABSOLUTE MONOCYTE COUNT 0.8 /CUMM (0.10-0.60); BASOPHIL % 0.5 % (0.0-2.0); EOSINOPHIL % 2.9 % (0-5); GRANULOCYTE % 70.5 % (42.2-75.2); HEMATOCRIT 46.2 % (42-52); MEAN CORPUSCULAR HGB 28.6 PG (27.0-31.0); MEAN CORPUSCULAR HGB CONC 32.5 G/DL (33.0-37.0); MEAN CORPUSCULAR VOLUME 87.8 FL (80.0-94.0); MEAN PLATELET VOLUME 8.9 FL (7.4-10.4); PLATELET COUNT 253 /CUMM (130-400); RBC DISTRIBUTION WIDTH 15.1 % (11.5-14.5); RED BLOOD CELL CT 5.26 /CUMM (4.70-6.10); WHITE BLOOD CELL COUNT 9.8 /CUMM (4.8-10.8)
[2017-12-02 14:50] VITALS: BP 112/64
--- NOTE | 2017-12-02 18:57 | PN- Att Addend ---
Attending Addendum Attending Brief Note S: The patient was seen and discussed with house staff//nursing/case management. He still feels slightly weak, however improving. No headache. states he was definitely confused yesterday and is improving, however not back to baseline. He is amnestic of events that lead to admission. O: VS: Vital Signs Date Time Temp Pulse Resp B/P B/P Pulse O2 O2 Flow FiO2 Mean Ox Delivery Rate 12/02 1450 98.1 108 20 112/64 92 Nasal 2.0L Cannula 12/02 1437 Nasal 2.0L Cannula 12/02 08 Nasal 2.0L Cannula 12/02 0630 98.5 83 20 142/88 94 12/01 2305 Nasal 2.0L Cannula 12/01 2230 98.5 92 20 118/64 92 Nasal 2.0L Cannula Intake & Output 12/02 1600 12/02 0800 12/02 0000 Intake Total 1300 500 300 Output Total Balance 1300 500 300 Intake, IV 800 500 300 Intake, Oral 500 Number 1 Bowel Movements Patient 162 lb Weight Weight Bed scale Measurement Method Current Medications Sig/Jackie Start time Last Medication Dose Route Stop Time Status Admin Acetaminophen 650 MG Q6P PRN 12/01 0515 AC PO Albuterol Sulfate 3 ML BID 12/02 1435 AC 12/02 INH 1436 Albuterol Sulfate 2 PUF Q4-6 PRN PRN 12/01 0530 AC INH Atorvastatin Calcium 40 MG 1700 12/01 1700 AC 12/02 PO 1722 Budesonide/ 2 PUF BID 12/01 1100 AC 12/02 Formoterol Fumarate INH 0831 Duloxetine HCl 60 MG DAILY 12/01 1000 AC 12/02 PO 0829 Enoxaparin Sodium 40 MG DAILY 12/01 1000 AC 12/02 SC 0831 Fluticasone 2 SPRAY DAILY PRN 12/01 0530 AC Propionate ARACELI Sodium Chloride 1,000 ML Q10H 12/01 1430 AC 12/02 IV 0231 Tiotropium [place] 1 PUF DAILY 12/01 1100 AC 12/02 INH 0830 Physical Exam: Physical Exam: HEENT: masood- dry mucosa (improved) Neck: no JVD/bruits Chest: clear Cor: sl tachy, reg, nl S1, S2 w/o murm Abd: BS+, soft, NT Ext: no edema Neuro: alert & oriented, non-focal Labs: Laboratory Tests 12/02/17 0625: Anion Gap 7, Estimated GFR > 60, BUN/Creatinine Ratio 21.7, CBC w Diff NO MAN DIFF REQ, RBC 5.26, MCV 87.8, MCH 28.6, RDW 15.1 H, MPV 8.9, Gran % 70.5, Lymphocytes % 18.3 L, Monocytes % 7.8, Eosinophils % 2.9, Basophils % 0.5, Absolute Granulocytes 6.9 H, Absolute Lymphocytes 1.8, Absolute Monocytes 0.8 H, Absolute Eosinophils 0.3, Absolute Basophils 0.1, PUBS MCHC 32.5 L Impression/Plan: #S/P Syncope- concerned regarding lack of clear etiology. Neurology input appreciated. Still await cardiology input. No arrhythmias noted (only sinus tachycardia). HR decreased today. Plan: Will ambulate and continue to follow. 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 Suspect will need home oxygen. Note, D-dimer was negative on admission. Plan: Overnight pulse ox tonight (discussed with Dr. Carlson who will arrange) and will determine need for oxygen at home. Will convert to full admission as this needs to be evaluated and may be related to syncopal event. #Volume Depletion- patient appears slightly better hydrated post IV fluids. Endorses that he has not been drinking liquids at home. Plan: Encourage po intake. #COPD- on inhalers. Plan: Continue Inhalers. #Hyperlipidemia- on Atorvastatin. Discussed with case management and will convert to full admission. Plan: Continue Atorvastatin.
--- NOTE | 2017-12-02 19:59 | Cons- Cardiology ---
General Information and HPI Consulting Request Date of Consult: 12/02/17 Requested By: Nehemiah Dhaliwal MD History of Present Illness: Mr. Reyes is 72 year old male with history of dyslipidemia and COPD. He presented to the ER following a syncopal episode. He had arisen from bed and walked to the kitchen to eat a cookie and suddenly passed out after taking a bite with a laceration over the left eye. He was out for about 10 seconds before regaining consciousness although he was not-completely lucid until after coming to the ER. The patient denies feeling any palpitations during this event or at any time. He has never felt lightheaded or fainted before. He also denies chest pain, pressure, tightness or shortness of breath at rest. 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 There were no tonic-clonic movements observed by his and the patient was not incontinent. Allergies/Medications Allergies: Coded Allergies: lactose (GI UPSET 07/02/17) Home Med List: Albuterol Sulfate (Proair Hfa) 90 MCG HFA.AER.AD 2 PUF INH Q4-6 PRN PRN copd (Reported) Docusate Sodium 100 MG CAPSULE 100 MG PO BID PRN CONSTIPATION STOOL SOFTENER, AVAILABLE OVER THE COUNTER Duloxetine HCl 60 MG CAPSULE.DR 1 CAP PO DAILY DEPRESSION (Reported) Fluticasone Propionate (Flonase Allergy Relief) 50 MCG/ACTUATION SPRAY.SUSP nasal congestion (Reported) Glycopyrrolate/Formoterol Fum (Bevespi Aerosphere Inhaler) 9 MCG-4.8 MCG HFA.AER.AD 2 PUFF PO BID COPD (Reported) Mirtazapine 15 MG TABLET 1 TAB PO QPM SLEEP HELP (Reported) Rosuvastatin Calcium (Crestor) 10 MG TABLET 1 TAB PO DAILY CHOLESTEROL ( Reported) Review of Systems Review of Systems: left arm weakness Past History Travel History Traveled to [place] past 21 day No Medical History Blood Transfusion Hx: No Neurological: NONE EENT: NONE Cardiovascular: HYPERCHOLESTERMIA Respiratory: COPD Gastrointestinal: NONE Hepatic: NONE Renal: NONE Musculoskeletal: degen joint disease Psychiatric: NONE Endocrine: NONE Blood Disorders: NONE Cancer(s): prostate cancer, SKIN CA 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 Home Smoking Status: Former Smoker Exam & Diagnostic Data Vital Signs and I&O Vital Signs Date Time Temp Pulse Resp B/P B/P Pulse O2 O2 Flow FiO2 Mean Ox Delivery Rate 12/02 1450 98.1 108 20 112/64 92 Nasal 2.0L Cannula 12/02 1437 Nasal 2.0L Cannula 12/02 08 Nasal 2.0L Cannula 12/02 0630 98.5 83 20 142/88 94 12/01 2305 Nasal 2.0L Cannula 12/01 2230 98.5 92 20 118/64 92 Nasal 2.0L Cannula Intake & Output 12/02 1600 12/02 0800 12/02 0000 12/01 1600 12/01 0800 12/01 0000 Intake Total 1300 500 300 Output Total Balance 1300 500 300 Intake, IV 800 500 300 Intake, Oral 500 Number 1 Bowel Movements Patient 162 lb 162 lb Weight Weight Bed scale Reported by Patient Measurement Method Physical Exam: General: WD/WN male in NAD; alert and oriented x 3 HEENT: NC/AT, PERRL, EOMI Neck: no JVD, no carotid bruit Heart: RRR with 2/6 systolic murmur Lungs: clear bilaterally Abdomen: soft, NT, +ve bowel sounds Extremities: no edema Assessment/Plan Assessment/Plan * This patient has an ECG that shows abnormal R wave progression 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 In this setting the patient may have had a malignant ventricular dysrhythmia. A seizure cannot be unequivocally exluded but is not felt likely by neurology. The patient does have risk factors for myocardial ischemia. Monitor on telemetry and obtain an echocardiogram to assess his overall EF and to look for regional wall motion abnormalities. Add metoprolol 12.5mg BID, aspirin 81mg daily and a statin. Consult Acknowledgment - Thank you for your consult request.
[2017-12-02 22:20] VITALS: BP 150/82
[2017-12-03 06:34] VITALS: BP 120/80
[2017-12-03 07:57] LABS: ABSOLUTE BASOPHIL COUNT 0 /CUMM (0.0-0.2); ABSOLUTE EOSINOPHIL COUNT 0.3 /CUMM (0.0-0.7); ABSOLUTE GRANULOCYTE CT 6.4 /CUMM (1.4-6.5); ABSOLUTE LYMPH COUNT 1.8 /CUMM (1.2-3.4); ABSOLUTE MONOCYTE COUNT 0.9 /CUMM (0.10-0.60); BASOPHIL % 0.5 % (0.0-2.0); EOSINOPHIL % 3.7 % (0-5); GRANULOCYTE % 67.9 % (42.2-75.2); MEAN CORPUSCULAR HGB 28.6 PG (27.0-31.0); MEAN CORPUSCULAR HGB CONC 32.8 G/DL (33.0-37.0); MEAN CORPUSCULAR VOLUME 87.1 FL (80.0-94.0); MEAN PLATELET VOLUME 8.8 FL (7.4-10.4); PLATELET COUNT 226 /CUMM (130-400); RBC DISTRIBUTION WIDTH 15.1 % (11.5-14.5); RED BLOOD CELL CT 4.94 /CUMM (4.70-6.10); WHITE BLOOD CELL COUNT 9.4 /CUMM (4.8-10.8)
--- NOTE | 2017-12-03 12:41 | ECHOCARDIOGRAM REPORT ---
MCKENNA MILLER Age: 72 : 1945 Gender: M Exam Date: 12/02/2017 13:46 Exam Location: [facility] Ht (in): 66 Wt (lb): 162 BSA: 1.86 BP: 142 / 88 Ordering Physician: Antwon Saleh MD Referring Physician: Thanh Mcmahon MD Technologist: Peggy Kendall [facility] Room Number: 185-02 Indications: LIGHTHEADEDNESS Rhythm: Sinus Technical Quality: Technically difficult study FINDINGS Left Ventricle Normal size left ventricle. Normal left ventricular wall thickness. Normal left ventricular ejection fraction visually estimated at > 60%. No obvious regional wall motion abnormalities. Right Ventricle Normal right ventricular size and function. Right Atrium Normal right atrial size. Left Atrium Normal left atrial size. Mitral Valve Mild mitral annular calcification. Mild mitral regurgitation. Aortic Valve Structurally normal aortic valve. No aortic stenosis. Trace aortic regurgitation. Tricuspid Valve Tricuspid valve not well visualized, grossly normal. Trace tricuspid regurgitation. Right ventricular systolic pressure estimated to be elevated at 42 mmHg. Pulmonic Valve Pulmonic valve not well visualized, grossly normal. Mild pulmonic regurgitation. Pericardium No pericardial effusion. Great Vessels Normal size aortic root. CONCLUSIONS Normal size left ventricle. Normal left ventricular wall thickness. Normal left ventricular ejection fraction visually estimated at > 60%. Mild mitral regurgitation. Trace aortic regurgitation. Right ventricular systolic pressure estimated to be elevated at 42 mmHg. Mild pulmonic regurgitation. Thanh Mcmahon M.D. (Electronically Signed) Final Date: 03 December 2017 12:40 MEASUREMENTS (Male / Female) Normal Values 2D ECHO LV Diastolic Diameter PLAX 4.1 cm 4.2 - 5.9 / 3.9 - 5.3 cm LV Systolic Diameter PLAX 1.9 cm 2.1 - 4.0 cm LV Fractional Shortening PLAX 53.7 % 25 - 46 % LV Ejection Fraction 2D Teich 85.0 % IVS Diastolic Thickness 1.2 cm LVPW Diastolic Thickness 1.1 cm LV Relative Wall Thickness 0.6 RV Internal Dim ED PLAX 3.5 cm 1.9 - 3.8 cm LVOT Diameter 2.0 cm Aortic Root Diameter 2.9 cm LA Systolic Diameter LX 4.0 cm 3.0 - 4.0 / 2.7 - 3.8 cm LA Volume 30.0 cm 18 - 58 / 22 - 52 cm Ascending Aorta Diameter 2.7 cm DOPPLER AV Peak Velocity 181.0 cm/s AV Peak Gradient 13.1 mmHg AV Mean Velocity 124.0 cm/s AV Mean Gradient 7.0 mmHg AV Velocity Time Integral 32.5 cm LVOT Peak Velocity 126.0 cm/s LVOT Peak Gradient 6.4 mmHg LVOT Mean Velocity 85.5 cm/s LVOT Mean Gradient 3.0 mmHg LVOT Velocity Time Integral 22.8 cm LVOT Stroke Volume 71.6 cm AV Area Cont Eq vti 2.2 cm AV Area Cont Eq pk 2.2 cm MV Peak Velocity 99.2 cm/s MV Peak Gradient 3.9 mmHg MV Mean Velocity 57.8 cm/s MV Mean Gradient 2.0 mmHg Mitral E Point Velocity 77.5 cm/s Mitral A Point Velocity 67.6 cm/s Mitral E to A Ratio 1.1 MV PHT Velocity 104.0 cm/s MV Deceleration [place] 436.0 cm/s MV Pressure Half Time 71.6 ms MV Area PHT 3.1 cm MV Deceleration Time 198.0 ms TR Peak Velocity 306.0 cm/s TR Peak Gradient 37.5 mmHg Right Atrial Pressure 5.0 mmHg Pulmonary Artery Systolic Pressu 42.5 mmHg Right Ventricular Systolic Press 42.5 mmHg PV Peak Velocity 160.0 cm/s PV Peak Gradient 10.2 mmHg PV Mean Velocity 107.0 cm/s PV Mean Gradient 5.0 mmHg PV Velocity Time Integral 25.3 cm LV E' Lateral Velocity 8.5 cm/s Mitral E to LV E' Lateral Ratio 9.1 LV E' Septal Velocity 8.7 cm/s Mitral E to LV E' Septal Ratio 8.9
[2017-12-03 14:53] VITALS: BP 128/72
--- NOTE | 2017-12-03 15:31 | PN- Housestaff ---
See Addendum Subjective Follow-up For: Syncopal attack Subjective: Patient was seen and examined this morning, overnight complaints except that he wants to be discharged today. 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 No overnight events Review of Systems Constitutional: Reports: see HPI. Objective Last 24 Hrs of Vital Signs/I&O Vital Signs Date Time Temp Pulse Resp B/P B/P Pulse O2 O2 Flow FiO2 Mean Ox Delivery Rate 12/03 1453 98.1 90 20 128/72 95 Nasal 2.0L Cannula 12/03 1233 95 Nasal 2.0L Cannula 12/03 0800 Nasal 2.0L Cannula 12/03 0634 98.1 81 20 120/80 93 Nasal 3.0L Cannula 12/02 2220 98.1 98 20 150/82 91 Nasal Cannula 12/02 2141 Nasal 2.0L Cannula 12/02 1954 93 Nasal 2.0L Cannula Intake & Output 12/03 1600 12/03 0800 12/03 0000 Intake Total 1400 1175 300 Output Total Balance 1400 1175 300 Intake, IV 600 800 Intake, Oral 800 375 300 Number 1 Bowel Movements Physical Exam General Appearance: Alert, Oriented X3, Cooperative, No Acute Distress Skin: No Rashes Skin Temp/Moisture Exam: Warm/Dry HEENT: Atraumatic, PERRLA, EOMI, Mucous Membr. moist/pink Neck: Supple Cardiovascular: Regular Rate, Normal S1, Normal S2, No Murmurs Lungs: Clear to Auscultation, Normal Air Movement Abdomen: Normal Bowel Sounds, Soft, No Tenderness Neurological: Normal Gait, Normal Speech, Strength at 5/5 X4 Ext, Normal Tone, Sensation Intact, Cranial Nerves 3-12 NL, Reflexes +3X4 Extremities: No Clubbing, No Cyanosis, Normal Pulses, BL Trace pedal edema Assessment/Plan Assessment: Mr. Reyes is 72 year old male with chief complain of syncopal episode and fall. Patient has past medical history significant for hyperlipidemia, degenerative disc disease with severe central canal stenosis and cord compression status post surgical decompression in September 2017, osteoarthritis of right knee status post knee replacement April 2017, prostate cancer status post excision 2012, skin cancer. Chest x-ray: The lungs are hypoexpanded with associated central bronchovascular prominence. Streaky left basal opacities are noted. Cardiac mediastinal silhouette appears stable. No pneumothorax. No acute osseous abnormalities. CT head and cervical spine without contrast IMPRESSION: 1. Left frontal scalp contusion. No acute intracranial pathology. 2. No evidence of acute cervical spine traumatic injury. Multilevel degenerative change with bilateral C6 laminectomies. 3. Hypoexpanded lungs with central bronchovascular prominence. Streaky left basal opacity which is nonspecific and may represent subsegmental atelectasis. Problem list #Syncopal attack #Sinus tachycardia resolved #Abnormal neuro exam with hyperreflexia 4, fasculation and clonus with possible diagnosis of amyotrophic lateral sclerosis #Shortness of breath and orthopnea in setting of dysfunctional diaphragm #Leukocytosis that could be reactive--resolved Plan -Neurology consultation was obtained, low suspicious for seizure, thanks recommendation. -Echocardiogram obtained that revealed normal ejection fraction >60% with no obvious regional wall motion abnormalities. -Continue metoprolol 12.5mg BID, aspirin 81mg daily and a statin per cardiac recommendation for possible malignant ventricular arrhythmia given abnormal progression of R-wave. -We'll obtain pulmonary consultation for hypoxia--patient currently on 2 L oxygen saturating 95%. -We will obtain CTA chest and bilateral Doppler per pulmonary recommendation. -Orthostatic measurement negative. -Negative prolactin and d-dimer. -Continue home medication atorvastatin, albuterol, Flonase, Cymbalta. -Code full -DVT prophylaxis Lovenox -Diet regular Problem List: 1. Syncope Pain Ratin Pain Location: N/A Pain Goal: Pain 4 or less Pain Plan: See medication Tomorrow's Labs & Rationales: N/A
--- NOTE | 2017-12-03 16:22 | ULTRASOUND REPORT ---
EXAMINATION: US TRIPLEX OF LOWER EXTREMITIES, BILATERAL CLINICAL INFORMATION: Bilateral lower extremity edema and hypoxia. COMPARISON: None TECHNIQUE: Color-flow triplex imaging with spectral analysis and compression Doppler were performed on the lower extremities. FINDINGS: Respiratory variation, normal compression and augmented flow are noted throughout the lower extremities. The visualized common femoral vein, superficial femoral vein, profunda femoral vein, popliteal vein and midcalf peroneal and posterior tibial venous segments show no evidence of deep venous thrombosis. There is edema within the subcutaneous fat. A Mcmullen's cyst is incidentally noted in the left popliteal fossa and measures 2.5 x 1.2 x 2.0 cm. IMPRESSION: 1. Normal triplex scan without evidence of deep venous thrombosis involving either leg. 2. Incidentally noted Mcmullen's cyst in the left popliteal fossa measuring 2.5 cm.
--- NOTE | 2017-12-03 16:36 | CT SCAN REPORT ---
EXAMINATION: CT ANGIOGRAM CHEST CLINICAL INFORMATION: Hypoxia, shortness of breath COMPARISON: Same day ultrasound of the extremities. TECHNIQUE: Volumetric helical CT imaging was performed through the chest after the administration of 70 mL of Optiray 350 intravenous contrast. Extensive vascular post-processing including two-dimensional and three-dimensional reformatted images were created and reviewed on an independent workstation. DLP: 469 mGy-cm. FINDINGS: ANGIOGRAM: There is no evidence of pulmonary embolism within the main, interlobar, segmental, or subsegmental pulmonary arterial vasculature. The thoracic aorta is widely patent as well as its major branch vessels. CHEST: Lungs: There is mild to moderate centrilobular emphysema within the upper lobes. There are bibasilar areas of peripheral consolidation, left greater than right which demonstrate the "CT angiogram sign". The area on the left is large measuring approximately up to 12 x 5 cm. The airways appear patent to the subsegmental level. No pleural effusion. Mediastinum: Incidental note made of a bovine arch. Thyroid gland is within normal limits. Mediastinal lymph nodes measure up to 0.8 cm in short axis. Pleura: There is no pleural effusion or pleural-based mass. Axilla/Chest Wall: The chest wall is normal in appearance. There are no pathologically enlarged lymph nodes. UPPER ABDOMEN: The imaged portions of the upper abdominal solid viscera are normal in appearance. OSSEOUS STRUCTURES: Intact and normal in appearance. Minimal diffuse degenerative changes throughout the visualized thoracic spine. IMPRESSION: 1. No acute pulmonary embolus. 2. Bibasilar enhancing consolidations. The differential diagnosis for this specific imaging appearance includes pneumonia, post obstructive pneumonitis secondary to central lung tumor (not visualized on the current study), lymphoma versus metastasis from gastrointestinal carcinoma.
--- NOTE | 2017-12-03 17:10 | Discharge Summary ---
Hospital Course Allergies: Coded Allergies: lactose (GI UPSET 07/02/17) Discharge Instructions Medications at Discharge Discharge Medications: Continue taking these medications: Rosuvastatin Calcium (Crestor) 10 MG TABLET 1 Tablet ORAL DAILY Comments: COMPARABLE LIPITOR TAKEN DURING STAY Last Taken:12/04/17 Time:940 Glycopyrrolate/Formoterol Fum (Bevespi Aerosphere Inhaler) 9 MCG-4.8 MCG HFA.AER.AD 2 PUFF ORAL TWICE DAILY Comments: NOT GIVEN IN HOSPITAL Fluticasone Propionate (Flonase Allergy Relief) 50 MCG/ACTUATION SPRAY.SUSP DAILY as needed for nasal congestion Comments: Last Taken:12/03/17 Time:926 Docusate Sodium (Docusate Sodium) 100 MG CAPSULE 100 Milligram ORAL TWICE DAILY as needed for CONSTIPATION Days = 14 Instructions: STOOL SOFTENER, AVAILABLE OVER THE COUNTER Comments: NOT TAKEN THIS ADMISSION Mirtazapine (Mirtazapine) 15 MG TABLET 1 Tablet ORAL Every night Qty = 30 Comments: NOT TAKEN THIS ADMISSION Duloxetine HCl (Duloxetine HCl) 60 MG CAPSULE.DR 1 Capsule ORAL DAILY Qty = 90 Comments: Last Taken:12/04/17 Time:940 Albuterol Sulfate (Proair Hfa) 90 MCG HFA.AER.AD 2 Puff Inhale through mouth EVERY 4-6 HOURS NEEDED as needed for copd Comments: SYMBICORT TAKEN DURING STAY Last Taken:12/04/17 Time:940 Start taking the following new medications: Prednisone (Prednisone) 10 MG TABLET 1 Tablet ORAL DAILY Qty = 15 No Refills Instructions: Please take 2 tabs for 5 days 12/04 to 12/08 then Take 1 tab for 5 days 12/09 to 12/13 Comments: START TODAY UPON DISCHARGE Attending MD Review Statement Documenting Attending: Boy PAYTON,Florentin Other Findings: Patient discharged home in stable condition. Patient to follow-up with his banking assistant Dr. Levy as an outpatient.
--- NOTE | 2017-12-03 17:14 | Patient Discharge Instructions ---
Discharge Instructions General Discharge Information You were seen/treated for: Syncopal attack Special Instructions: -Please follow-up with your primary care physician within 1 week after discharge -Please follow-up with manager material Dr. Mcmahon after discharge -Please follow-up with your radiologic technology instructor Topher Levy MD after discharge -Please see an ENT doctor after discharge -Please take your steroid as directed -Please use the oxygen 2 L during the day and 4L at night while sleeping Acute Coronary Syndrome Inclusion Criteria At DC or during hospital stay patient has or had the following: Discharge Core Measures Meds if any: Prescribed or Continued at Discharge Meds if any: NOT Prescribed or Continued at Discharge Congestive Heart Failure Inclusion Criteria At DC or during hospital stay patient has or had the following: Discharge Core Measures Meds if any: Prescribed or Continued at Discharge Meds if any: NOT Prescribed or Continued at Discharge Cerebrovascular accident Inclusion Criteria At DC or during hospital stay patient has or had the following: CVA/TIA Diagnosis No Discharge Core Measures Meds if any: Prescribed or Continued at Discharge Meds if any: NOT Prescribed or Continued at Discharge Venous thromboembolism Discharge Core Measures - Per Current guidelines, there needs to be overlap - treatment for the first 5 days of Warfarin therapy. - If discharged on Warfarin prior to 5 days of - overlap therapy, the patient will need to be - assessed for post discharge needs including - *Post discharge parental anticoagulation - *Warfarin and/or parental anticoagulation education - *Follow up date to check INR post discharge Meds if any: Prescribed or Continued at Discharge Note: Overlap Therapy is Warfarin and Anticoagulant Meds if any: NOT Prescribed or Continued at Discharge
--- NOTE | 2017-12-03 19:30 | Cons- Pulmonary ---
General Information and HPI Consulting Request Date of Consult: 12/03/17 Requested By: med team History of Present Illness: Mr. Reyes is 72 year old male with chief complain of syncopal episode and fall. Patient has past medical history significant for hyperlipidemia, degenerative disc disease with severe central canal stenosis and cord compression status post surgical decompression in September 2017, osteoarthritis of right knee status post knee replacement April 2017, prostate cancer status post excision 2012, skin cancer. 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 As he had severe djd with pending quadreplegia he was cleared for surg and he was to follow with me soon for eval of his mixed obstructive and restrictive lung disease. His pulm issues and other probs include atx Cervical disc disease / sig path/ s/p surg as he had quadreperesis Atelectasis bibasilar due to cervical dz causeing diapharm dysfunction prob needs eval COPD fev1 of 1.49 litres History of smoking 30 or more pack years quit 2016 Personal history of malignant neoplasm of prostate s/p surg needs follw up Mixed restrictive and obstructive lung disease Right knee DJD / s/p surg Hyperlipidemia Abnormal ECG followed by cardio SOB (shortness of breath) stable Allergies/Medications Allergies: Coded Allergies: lactose (GI UPSET 07/02/17) Home Med List: Albuterol Sulfate (Proair Hfa) 90 MCG HFA.AER.AD 2 PUF INH Q4-6 PRN PRN copd (Reported) Docusate Sodium 100 MG CAPSULE 100 MG PO BID PRN CONSTIPATION STOOL SOFTENER, AVAILABLE OVER THE COUNTER Duloxetine HCl 60 MG CAPSULE.DR 1 CAP PO DAILY DEPRESSION (Reported) Fluticasone Propionate (Flonase Allergy Relief) 50 MCG/ACTUATION SPRAY.SUSP nasal congestion (Reported) Glycopyrrolate/Formoterol Fum (Bevespi Aerosphere Inhaler) 9 MCG-4.8 MCG HFA.AER.AD 2 PUFF PO BID COPD (Reported) Mirtazapine 15 MG TABLET 1 TAB PO QPM SLEEP HELP (Reported) Rosuvastatin Calcium (Crestor) 10 MG TABLET 1 TAB PO DAILY CHOLESTEROL ( Reported) Review of Systems Review of Systems Constitutional: Reports: see HPI. Past History Travel History Traveled to [place] past 21 day No Medical History Blood Transfusion Hx: No Neurological: NONE EENT: NONE Cardiovascular: HYPERCHOLESTERMIA Respiratory: COPD Gastrointestinal: NONE Hepatic: NONE Renal: NONE Musculoskeletal: degen joint disease Psychiatric: NONE Endocrine: NONE Blood Disorders: NONE Cancer(s): prostate cancer, SKIN CA BOTTOM IRONER/Reproductive: 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 Home Smoking Status: Former Smoker Exam & Diagnostic Data Last 24 Hrs of Vital Signs/I&O Vital Signs Date Time Temp Pulse Resp B/P B/P Pulse O2 O2 Flow FiO2 Mean Ox Delivery Rate 12/03 1600 Nasal 2.0L Cannula 12/03 1453 98.1 90 20 128/72 95 Nasal 2.0L Cannula 12/03 1233 95 Nasal 2.0L Cannula 12/03 0800 Nasal 2.0L Cannula 12/03 0634 98.1 81 20 120/80 93 Nasal 3.0L Cannula 12/02 2220 98.1 98 20 150/82 91 Nasal Cannula 12/02 2141 Nasal 2.0L Cannula 12/02 1954 93 Nasal 2.0L Cannula Intake & Output 12/03 1600 12/03 0800 12/03 0000 Intake Total 1400 1175 300 Output Total Balance 1400 1175 300 Intake, IV 600 800 Intake, Oral 800 375 300 Number 1 Bowel Movements Last 48 Hrs of Labs/Shade: Laboratory Tests 12/03/17 0640: Anion Gap 9, Estimated GFR > 60, BUN/Creatinine Ratio 16.7, CBC w Diff NO MAN DIFF REQ, RBC 4.94, MCV 87.1, MCH 28.6, RDW 15.1 H, MPV 8.8, Gran % 67.9, Lymphocytes % 18.6 L, Monocytes % 9.3, Eosinophils % 3.7, Basophils % 0.5, Absolute Granulocytes 6.4, Absolute Lymphocytes 1.8, Absolute Monocytes 0.9 H, Absolute Eosinophils 0.3, Absolute Basophils 0, PUBS MCHC 32.8 L 12/02/17 0625: Anion Gap 7, Estimated GFR > 60, BUN/Creatinine Ratio 21.7, CBC w Diff NO MAN DIFF REQ, RBC 5.26, MCV 87.8, MCH 28.6, RDW 15.1 H, MPV 8.9, Gran % 70.5, Lymphocytes % 18.3 L, Monocytes % 7.8, Eosinophils % 2.9, Basophils % 0.5, Absolute Granulocytes 6.9 H, Absolute Lymphocytes 1.8, Absolute Monocytes 0.8 H, Absolute Eosinophils 0.3, Absolute Basophils 0.1, PUBS MCHC 32.5 L Assessment/Plan Impression/Plan: ULtrasound of lower ext showed no dvt CTA CHEST: Lungs: There is mild to moderate centrilobular emphysema within the upper lobes. There are bibasilar areas of peripheral consolidation, left greater than right which demonstrate the "CT angiogram sign". The area on the left is large measuring approximately up to 12 x 5 cm. The airways appear patent to the subsegmental level. No pleural effusion. Mediastinum: Incidental note made of a bovine arch. Thyroid gland is within normal limits. Mediastinal lymph nodes measure up to 0.8 cm in short axis. Pleura: There is no pleural effusion or pleural-based mass. Axilla/Chest Wall: The chest wall is normal in appearance. There are no pathologically enlarged lymph nodes. UPPER ABDOMEN: The imaged portions of the upper abdominal solid viscera are normal in appearance. OSSEOUS STRUCTURES: Intact and normal in appearance. Minimal diffuse degenerative changes throughout the visualized thoracic spine. IMPRESSION: 1. No acute pulmonary embolus. 2. Bibasilar enhancing consolidations. The differential diagnosis for this specific imaging appearance includes pneumonia, post obstructive pneumonitis secondary to central lung tumor (not visualized on the current study), lymphoma versus metastasis from gastrointestinal carcinoma. DICTATED BY: Anita Wen MD DATE/TIME DICTATED:12/03/171621 Physical Exam General Appearance Alert, Oriented X3, Cooperative, No Acute Distress, frustrated Skin No Rashes Skin Temp/Moisture Exam: Warm/Dry HEENT Atraumatic, PERRLA, EOMI, Mucous Membr. 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 However ALEJANDRO/ lymphoma etc is a possiblitiy but less likely, and needs eval as out pt with PET CT etc * Cervical disc disease / s/p surg as he had quadreperesisbefore with good recovery of function * Atelectasis bibasilar due to cervical dz causeing diapharm dysfunction/needs eval * COPD fev1 of 1.49 litres, now no evidence of copde * History of smoking 30 or more pack years quit 2015 * Personal history of malignant neoplasm of prostate s/p surg needs follw up * Mixed restrictive and obstructive lung disease REC COnt all the investigations for syncope Check room air sat and if more than 90 can go home on room air cont out pt inhaler rx Will arrange for a pet scan as out pt Check PSA as he has had prostate cancer before Will follow PS I have not discussed the CT findings with the patient yet and will do so in am Consult Acknowledgment - Thank you for your consult request.
[2017-12-03 21:57] VITALS: BP 125/70
[2017-12-04 07:10] VITALS: BP 156/90
--- NOTE | 2017-12-04 07:56 | PN- Housestaff ---
Therese PAYTON,[facility] 12/04/17 0755: Subjective Follow-up For: Syncopal attack Subjective: Patient was seen and examined this morning, overnight complaints. No overnight events, vital signs are stable. Patient wanted to be discharged today. Review of Systems Constitutional: Reports: see HPI. Objective Last 24 Hrs of Vital Signs/I&O Vital Signs Date Time Temp Pulse Resp B/P B/P Pulse O2 O2 Flow FiO2 Mean Ox Delivery Rate 12/04 1131 Nasal 2.0L Cannula 12/04 1040 98 Nasal 2.0L Cannula 12/04 0710 98.4 93 20 156/90 91 Nasal 2.0L Cannula 12/04 0000 94 Nasal 2.0L Cannula 12/03 2225 84 128/64 12/03 2157 98.5 91 16 125/70 93 12/03 1940 93 Nasal 2.0L Cannula Intake & Output 12/04 1600 12/04 0800 12/04 0000 Intake Total 400 702 Output Total Balance 400 702 Intake, Oral 400 702 Physical Exam General Appearance: Alert, Oriented X3, Cooperative, No Acute Distress Skin: No Rashes Skin Temp/Moisture Exam: Warm/Dry HEENT: Atraumatic, PERRLA, EOMI, Mucous Membr. moist/pink Neck: Supple Cardiovascular: Regular Rate, Normal S1, Normal S2, No Murmurs Lungs: Clear to Auscultation, Normal Air Movement Abdomen: Normal Bowel Sounds, Soft, No Tenderness Neurological: Normal Gait, Normal Speech, Strength at 5/5 X4 Ext, Normal Tone, Sensation Intact, Cranial Nerves 3-12 NL, Reflexes 2+ Extremities: No Clubbing, No Cyanosis, No Edema, Normal Pulses Assessment/Plan Assessment: Mr. Reyes is 72 year old male with chief complain of syncopal episode and fall. Patient has past medical history significant for hyperlipidemia, degenerative disc disease with severe central canal stenosis and cord compression status post surgical decompression in September 2017, osteoarthritis of right knee status post knee replacement April 2017, prostate cancer status post excision 2012, skin cancer. Chest x-ray: The lungs are hypoexpanded with associated central bronchovascular prominence. Streaky left basal opacities are noted. Cardiac mediastinal silhouette appears stable. No pneumothorax. No acute osseous abnormalities. CT head and cervical spine without contrast IMPRESSION: 1. Left frontal scalp contusion. No acute intracranial pathology. 2. No evidence of acute cervical spine traumatic injury. Multilevel degenerative change with bilateral C6 laminectomies. 3. Hypoexpanded lungs with central bronchovascular prominence. Streaky left basal opacity which is nonspecific and may represent subsegmental atelectasis. CTA negative for PE BL LE doppler venous negative for DVT Problem list #Syncopal attack #Sinus tachycardia resolved #Abnormal neuro exam with hyperreflexia 4, fasculation and clonus with possible diagnosis of amyotrophic lateral sclerosis #Shortness of breath and orthopnea in setting of dysfunctional diaphragm #Leukocytosis that could be reactive--resolved Plan -Neurology consultation was obtained, low suspicious for seizure, thanks recommendation. -Echocardiogram obtained that revealed normal ejection fraction >60% with no obvious regional wall motion abnormalities. -Continue metoprolol 12.5mg BID, aspirin 81mg daily and a statin per cardiac recommendation for possible malignant ventricular arrhythmia given abnormal progression of R-wave. -Pulmonary consultation for hypoxia--patient currently on 2 L oxygen saturating 95%. -Will DC on oxygen via NC and predinsone taper -Nocturnal sleep study revealed 8 minutes of hypoxia, was done on 2 L oxygen -Orthostatic measurement negative. -Negative prolactin and d-dimer. -Continue home medication atorvastatin, albuterol, Flonase, Cymbalta. -Code full -DVT prophylaxis Lovenox -Diet regular Problem List: 1. Syncope Pain Ratin Pain Location: N/A Pain Goal: Pain 4 or less Pain Plan: See medication Tomorrow's Labs & Rationales: N/A Boy PAYTON,Florentin 12/04/17 1310: Attending MD Review Statement Attending Statement Attending MD Statement: examined this patient, discuss w/resident/PA/MANAGER PULMONARY, agreed w/resident/PA/MANAGER PULMONARY, discussed with family, reviewed EMR data (avail), discussed with nursing, discussed with case mgmt, amended to note Attending Assessment/Plan: Patient seen and examined. Resting comfortably admitted any acute distress. No issues overnight. Resting comfortably and maintaining saturation on oxygen supplementation. He offers no complaints today at rest or with ambulation. He remains eager to be discharged home. On examination he has diminished air entry in the left lung field. Otherwise clear to auscultation. Abdomen is soft and nontender. He has no peripheral edema. He has no gross focal neurologic deficit. Chest CTA done yesterday to further evaluate his hypoxia showed Bibasilar enhancing consolidations. The differential diagnosis for this bspecific imaging appearance includes pneumonia, post obstructive pneumonitis secondary to central lung tumor (not visualized on the current study), lymphoma versus metastasis from gastrointestinal carcinoma. These findings were discussed with the fashion marketer. Further discussion differentials are quite broad including chronically consolidated long due to left-sided diaphragmatic paralysis as well as the differentials listed by the radiologist. Patient will be scheduled to undergo a PET scan as an outpatient. In the meantime he is being discharged home on oxygen supplementation as well as prednisone for 5 days to help reduce inflammatory changes in the longer. He will also be referred by his fashion marketer to the ENT service as an outpatient. His PSA was checked and is < 0.06. He is medically stable to be discharged home today.
--- NOTE | 2017-12-04 10:07 | PN- Pulmonary ---
Subjective HPI/Critical Care Issues: Events and data reviewed Patient did have a CAT scan which showed bilateral lower lobe contrast enhancing consolidation more in the left than the right. 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 He probably has a significant shunt in this area and would need oxygen. Feels okay. He does complain of some loss of appetite but no significant loss of weight. Before coming to the hospital he had felt okay. Objective Current Medications: Current Medications Sig/Jackie Start time Last Medication Dose Route Stop Time Status Admin Acetaminophen 650 MG Q6P PRN 12/01 0515 AC PO Albuterol Sulfate 3 ML BID 12/02 1435 AC 12/03 INH 1940 Albuterol Sulfate 2 PUF Q4-6 PRN PRN 12/01 0530 AC INH Aspirin 81 MG DAILY 12/03 1000 AC 12/04 PO 0941 Atorvastatin Calcium 40 MG 1700 12/01 1700 AC 12/03 PO 1721 Budesonide/ 2 PUF BID 12/01 1100 AC 12/04 Formoterol Fumarate INH 0941 Duloxetine HCl 60 MG DAILY 12/01 1000 AC 12/04 PO 0941 Enoxaparin Sodium 40 MG DAILY 12/01 1000 AC 12/04 SC 0941 Fluticasone 2 SPRAY DAILY PRN 12/01 0530 AC 12/03 Propionate ARACELI 0927 Lorazepam 0.5 MG ONE ONE 12/03 1430 DC 12/03 PO 12/03 1431 1527 Metoprolol Tartrate 12.5 MG BID 12/03 1000 AC 12/04 PO 0941 Sodium Chloride 1,000 ML Q10H 12/01 1430 DC 12/03 IV 0312 Tiotropium Francitas 1 PUF DAILY 12/01 1100 AC 12/04 INH 0941 Vital Signs & I&O Last 24 Hrs of Vitals and I&O: Vital Signs Date Time Temp Pulse Resp B/P B/P Pulse O2 O2 Flow FiO2 Mean Ox Delivery Rate 12/04 0710 98.4 93 20 156/90 91 Nasal 2.0L Cannula 12/04 0000 94 Nasal 2.0L Cannula 12/03 2225 84 128/64 12/03 2157 98.5 91 16 125/70 93 12/03 1940 93 Nasal 2.0L Cannula 12/03 1600 Nasal 2.0L Cannula 12/03 1453 98.1 90 20 128/72 95 Nasal 2.0L Cannula 12/03 1233 95 Nasal 2.0L Cannula Intake & Output 12/04 1600 12/04 0800 12/04 0000 Intake Total 400 702 Output Total Balance 400 702 Intake, Oral 400 702 Impression/Plan Impression/Plan Impression/Plan: ULtrasound of lower ext showed no dvt CTA CHEST: Lungs: There is mild to moderate centrilobular emphysema within the upper lobes. There are bibasilar areas of peripheral consolidation, left greater than right which demonstrate the "CT angiogram sign". The area on the left is large measuring approximately up to 12 x 5 cm. The airways appear patent to the subsegmental level. No pleural effusion. Mediastinum: Incidental note made of a bovine arch. Thyroid gland is within normal limits. Mediastinal lymph nodes measure up to 0.8 cm in short axis. Pleura: There is no pleural effusion or pleural-based mass. Axilla/Chest Wall: The chest wall is normal in appearance. There are no pathologically enlarged lymph nodes. UPPER ABDOMEN: The imaged portions of the upper abdominal solid viscera are normal in appearance. OSSEOUS STRUCTURES: Intact and normal in appearance. Minimal diffuse degenerative changes throughout the visualized thoracic spine. IMPRESSION: 1. No acute pulmonary embolus. 2. Bibasilar enhancing consolidations. The differential diagnosis for this specific imaging appearance includes pneumonia, post obstructive pneumonitis secondary to central lung tumor (not visualized on the current study), lymphoma versus metastasis from gastrointestinal carcinoma. DICTATED BY: Anita Wen MD DATE/TIME DICTATED:12/03/171621 Physical Exam General Appearance Alert, Oriented X3, Cooperative, No Acute Distress, frustrated Skin No Rashes Skin Temp/Moisture Exam: Warm/Dry HEENT Atraumatic, PERRLA, EOMI, Mucous Membr. 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 PET will be arranged soon Oxygen for dc Prednisone 20 mg for five days and ten mg for five days for inflammatory lung process if any Cont out pt inhaler rx Pt advised to see ENT upon dc Check PSA as he has had prostate cancer before Discussed with family in detail
[2017-12-04] MEDS ORDERED: PREDNISONE10 M2 PO (10:28)
== END 2017-12-04 11:36 | DRG 312 ==
LOC: ERH 00:42 → 1NO 03:44 → ERHI 03:44 → ENRESERV 14:30 → 1NO 16:37 → ENPENDDIS 12-04 10:30 → ENTRNSPT 12-04 11:29 → CMPTRNSPT 12-04 11:31 → 1NO 12-04 11:36
PROVIDERS: Hospitalist; Pediatrics; Student in an Organized Health Care Education/Training Program
PROC: 0HQ1XZZ Repair Face Skin, External Approach (ICD-10-PCS; principal; 2017-12-01)
DX: R55 Syncope and collapse (principal); J44.9 Chronic obstructive pulmonary disease, unspecified; E78.5 Hyperlipidemia, unspecified; E78.00 Pure hypercholesterolemia, unspecified; R00.0 Tachycardia, unspecified; S01.81XA Laceration without foreign body of other part of head, initial encounter; W19.XXXA Unspecified fall, initial encounter; Y92.000 Kitchen of unspecified non-institutional (private) residence as the place of occurrence of the external cause; R09.02 Hypoxemia; I25.2 Old myocardial infarction; Z85.828 Personal history of other malignant neoplasm of skin; Z85.46 Personal history of malignant neoplasm of prostate
CPT/HCPCS: 1255; 1263; 1328; 1425; 1530; 1748; 2000; 6020; 36415; 71045; 80307; 81003; 82436; 90714; 93005; 93010; 93306; 93970; G0378; J1650; J3490

== ENCOUNTER 2018-03-11 11:17 | Inpatient (IN) | payer OTHER, MEDICARE ==
[~2018-03-11] VITALS: Ht 167.6 cm; Wt 66.8 kg
[~2018-03-11 11:17] MED LIST changes: +DULOXETINE HCL60 MG PO; +MIRTAZAPINE15 M2 PO; +PREDNISONE10 M2 PO; +PROAIR HFA8.5 GM INH
--- NOTE | 2018-03-11 14:18 | ED GENERAL ADULT ---
History of Present Illness General Chief Complaint: General Adult Stated Complaint: PER "I COULDNT WAKE HIM UP" Source: family, old records Exam Limitations: clinical condition Vital Signs & Intake/Output Vital Signs & Intake/Output Vital Signs Date Time Temp Pulse Resp B/P B/P Pulse O2 O2 Flow FiO2 Mean Ox Delivery Rate 03/11 2024 98.8 113 26 121/67 94 BIPAP 25% 03/11 1919 92 94 03/11 1904 91 20 105/68 93 BIPAP 03/11 1805 97.1 85 20 102/84 93 BIPAP 03/11 1623 96.2 76 20 124/60 90 BIPAP 03/11 1544 76 93 03/11 1512 110 98 03/11 1444 Nasal 2.0L Cannula 03/11 1424 96.5 102 20 121/75 96 Nasal 2.0L Cannula 03/11 1142 97.9 91 18 98/63 90 Nasal 2.0L Cannula Allergies Coded Allergies: morphine (Severe, VOMITING 03/08/18) lactose (GI UPSET 07/02/17) Triage Note: PT TO ER WITH FAMILY C/C, "UNRESPONSIVE EPISODE X HOURS WITH OXYGEN SATURATION OF 69%". PT AOX3 AT PRESENT, DENIES C/P OR SOB. USES 2 L NC AT BASELINE FOR HX OF "FAILED DIAPHRAGM". O2 SAT IN TRIAGE 88-94%, BP 98/63. Triage Nurses Notes Reviewed? yes Onset: Abrupt Duration: day(s): (3), changing over time, continues in ED, getting worse Timing: recent history Injury Environment: home Severity: moderate, severe No Modifying Factors: none HPI: 72-year-old male past medical history of COPD and diaphragm injury on 2 L nasal cannula at nighttime presents for evaluation of altered mental status. Patient was seen here 3 days ago was found to be hypercarbic over that time he was able to ambulate and was alert and oriented 3. He was discharged home with instructions to follow-up with pulmonology. Patient's reports that over the past several days he has become more lethargic and is now unresponsive. She states that she had been increasing his oxygen because she noted that he was satting in the 60s and 70s at home. Patient currently is only responsive to painful stimuli. He is not able to contribute to history. (Curtis MICHAEL,Kris) Reconcile Medications Albuterol Sulfate (Proair Hfa) 90 MCG HFA.AER.AD 2 PUF INH Q4-6 PRN PRN copd (Reported) Cholecalciferol (Vitamin D3) 1,000 UNIT TABLET 1 TAB PO DAILY SUPPLEMENT ( Reported) Cyanocobalamin (Vitamin B-12) 1,000 MCG TABLET 1 TAB PO DAILY MENTAL HEATLH ( Reported) Docusate Sodium 100 MG CAPSULE 100 MG PO BID PRN CONSTIPATION STOOL SOFTENER, AVAILABLE OVER THE COUNTER Fluticasone Propionate (Flonase Allergy Relief) 50 MCG/ACTUATION SPRAY.SUSP nasal congestion (Reported) Glycopyrrolate/Formoterol Fum (Bevespi Aerosphere Inhaler) 9 MCG-4.8 MCG HFA.AER.AD 2 PUFF PO BID COPD (Reported) Mirtazapine 15 MG TABLET 1 TAB PO QPM SLEEP HELP (Reported) Rosuvastatin Calcium (Crestor) 10 MG TABLET 1 TAB PO DAILY CHOLESTEROL ( Reported) Ubidecarenone (Coenzyme Q-10) 200 MG CAPSULE 1 TAB PO DAILY HEART HEALTH ( Reported) (Boom Mercedes DO) Past History Travel History Traveled to [place] past 21 day No Medical History Any Pertinent Medical History? see below for history Neurological: NONE EENT: NONE Cardiovascular: HYPERCHOLESTERMIA Respiratory: COPD Gastrointestinal: NONE Hepatic: NONE Renal: NONE Musculoskeletal: degen joint disease Psychiatric: NONE Endocrine: NONE Blood Disorders: NONE Cancer(s): prostate cancer, SKIN CA COLOR ARTIST/Reproductive: NONE History of MRSA: No History of VRE: No History of CDIFF: No Tetanus Vaccine: 12/01/17 Surgical History Surgical History: TONSILLECTOMY PROSTATECTOMY ULNAR NERVE REPAIR SKIN CA EXCISION Psychosocial History Who do you live with Spouse What is your primary language Colombian Tobacco Use: Quit >30 days ago Family History Hx Contributory? No (Kris Haynes) Review of Systems Review of Systems Constitutional: Reports: no symptoms. EENTM: Reports: no symptoms. Respiratory: Reports: see HPI. Cardiovascular: Reports: no symptoms. GI: Reports: no symptoms. Genitourinary: Reports: no symptoms. Musculoskeletal: Reports: no symptoms. Skin: Reports: no symptoms. Neurological/Psychological: Reports: see HPI. Hematologic/Endocrine: Reports: no symptoms. Immunologic/Allergic: Reports: no symptoms. All Other Systems: Reviewed and Negative (Kris Haynes) Physical Exam Physical Exam General Appearance: well developed/nourished, no apparent distress, lethargic, thin, RESPONSIVE TO PAINFUL STIMULI ONLY Head: atraumatic, normal appearance Eyes: Bilateral: normal appearance, PERRL, EOMI. Ears, Nose, Throat: normal pharynx, normal ENT inspection, hearing grossly normal Neck: normal inspection, supple, full range of motion Respiratory: normal breath sounds, chest non-tender, no respiratory distress, lungs clear Cardiovascular: regular rate/rhythm, normal peripheral pulses Peripheral Pulses: 2+ radial (R), 2+ radial (L) Gastrointestinal: soft, non-tender Back: normal inspection, normal range of motion, no vertebral tenderness Extremities: normal inspection, normal range of motion, no edema Neurologic/Psych: PATIENT IS ALERT AND ORIENTED TO PAINFUL STIMULI ONLY ON INITIAL EVALUATION Skin: intact, normal color, warm/dry Lymphatic: no anterior cervical junior Core Measures ACS in differential dx? No CVA/TIA Diagnosis: No Sepsis Present: No Sepsis Focused Exam Completed? No (Curtis MICHAEL,Kris) Progress Differential Diagnoses I considered the following diagnoses in my evaluation of the patient: [ Hypercarbia, PE, CHF, COPD, pneumonia, aortic dissection, sepsis] Plan of Care: Orders Procedure Date/time Status Nothing by Mouth 03/12 D Active CBC WITHOUT DIFFERENTIAL 03/12 0600 Active ICU LAB BUNDLE 03/12 0500 Active TROPONIN LEVEL 03/12 0100 Active EKG 03/12 0100 Active Wound Care/Dressing 03/11 194 Complete Weight 03/11 1940 Active VTE Mechanical Prophylaxis 03/11 1940 Active Vital Signs 03/11 1940 Active Turn and Reposition 03/11 1940 Active Drains/Tubes 03/11 1940 Complete Teach/Educate 03/11 194 Active Skin Integrity Protocol 03/11 194 Active Skin/Pressure Ulcer Assess (Sk 03/11 194 Active Precautions 03/11 194 Active Pain Treatment and Response 03/11 1940 Active Nutritional Intake, Monitor 03/11 1940 Active Isolation 03/11 194 Active CIWA 03/11 194 Complete Patient Care Conference 03/11 1940 Active Activity/Ambulation 03/11 194 Active VRE ACTIVE SURVIELLANCE 03/11 1814 Active ACTIVE SURVEILLANCE NARES 03/11 1814 Active Pathway - chart 03/11 1802 Active Code Status 03/11 1802 Active Patient Data 03/11 1716 Active BIPAP 03/11 1715 Complete ED Holding Orders 03/11 1653 Active Admit to inpatient 03/11 1653 Active Vital Signs 03/11 1653 Active Code Status 03/11 1653 Complete URINE DRUG SCREEN FOR ER ONLY 03/11 1621 Active BIPAP 03/11 1600 Complete BIPAP 03/11 1530 Complete ARTERIAL BLOOD GAS (GEN) 03/11 1530 Complete Add-on Test (ER Only) 03/11 1503 Active ARTERIAL BLOOD GAS (GEN) 03/11 1432 Complete Intake & Output 03/11 1426 Active Add-on Test (ER Only) 03/11 1415 Active Add-on Test (ER Only) 03/11 1414 Active B-TYPE NATRIURETIC PEP (BNP) 03/11 1412 Complete URINALYSIS 03/11 1236 Active TROPONIN LEVEL 03/11 1236 Complete LACTIC ACID 03/11 1236 Complete D-DIMER 03/11 1236 Complete COMPREHENSIVE METABOLIC PANEL 03/11 1236 Complete CBC WITHOUT DIFFERENTIAL 03/11 1236 Complete EKG 03/11 1143 Active TRC EVALUATION (GEN) 03/11 UNK Active PEAK FLOW MEASUREMENT (GEN) 03/11 UNK Active BIPAP 03/11 UNK Complete House Staff 03/11 UNK Active VTE Mechanical Prophylaxis 03/11 UNK Active Vital Signs 03/11 UNK Complete Intake & Output 03/11 UNK Complete Activity/Ambulation 03/11 UNK Active Current Medications Sig/Jackie Start time Last Medication Dose Stop Time Status Admin Heparin Sodium 5,000 UNIT Q8 03/11 2200 AC (Porcine) Albuterol Sulfate 2 PUF Q4-6 PRN PRN 03/11 1830 CAN (Ventolin) Albuterol Sulfate 3 ML Q4H PRN 03/11 1830 AC (Proventil) Dextrose/Sodium 1,000 ML Q13H 03/11 1830 AC 03/11 Chloride 03/12 0729 1854 (D5W-1/2 Normal Saline 1000ML) Methylprednisolone 40 MG Q8 03/11 1830 AC 03/11 (Solumedrol) 1854 Non-Formulary 0 SEE ADMIN CRITERIA 03/11 1830 UNVr Medication (NON FORMULARY) Laboratory Tests 03/11/18 1700: pH 7.46 H, pCO2 41, pO2 70 L, HCO3 28, ABG O2 Sat (Measured) 95.0 L, P-50 ( Temp Corrected) Y, Carboxyhemoglobin 0.9 L, O2 Concentration % 25%, Temperature 96.2 L, Respiration Rate 30, O2 Delivery Method BIPAP, Vent Mode ST, Expiratory Pressure 6, Inspiratory Pressure 22, Phlebotomy Draw Site RIGHT RADIAL 03/11/18 1450: pH 7.19 *L, pCO2 109 *H, pO2 103 H, HCO3 41 H, ABG O2 Sat (Measured) 96.0, P- 50 (Temp Corrected) Y, Carboxyhemoglobin 1.0 L, O2 Concentration % 2L, Temperature 96.5 L, O2 Delivery Method N/C, Phlebotomy Draw Site LEFT RADIAL 03/11/18 1412: Anion Gap 9, Estimated GFR > 60, BUN/Creatinine Ratio 21.7, Glucose 115 H, Lactic Acid 0.7, Calcium 10.1, Total Bilirubin 0.6, AST 43, ALT 42, Alkaline Phosphatase 64, Troponin I < 0.01, Dzj-D-Ztnmlhenaba Pept 16.8, Total Protein 7.0, Albumin 4.0, Globulin 3.0, Albumin/Globulin Ratio 1.3, D-Dimer High Sensitivty < 200, CBC w Diff NO MAN DIFF REQ, RBC 5.63, MCV 88.6, MCH 28.4, MCHC 32.0 L, RDW 14.0, MPV 8.6, Gran % 81.4 H, Lymphocytes % 11.5 L, Monocytes % 6.8, Eosinophils % 0.1, Basophils % 0.2, Absolute Granulocytes 8.0 H, Absolute Lymphocytes 1.1 L, Absolute Monocytes 0.7 H, Absolute Eosinophils 0, Absolute Basophils 0 Microbiology 03/11 1814 UPPER RESP: Surveillance Culture - COLB 03/11 1814 GI: Surveillance Culture - COLB Seen and evaluated. Initial evaluation he is lethargic responsive only to painful stimuli. No signs of hypoxia. reports that she has been increasing his oxygen due to hypoxia at home. Basic blood work ABG obtained. ABG shows pH of 7.19 and a CO2 level of 109. BiPAP was ordered. Remaining blood work is within normal limits EKG does not show any acute changes. Chest x -ray ordered. Patient is starting to wake up after being on BiPAP for a little over an hour. His repeat blood gas shows pH 7.41 and CO2 in the 40s. Patient will be admitted to the ICU. Case discussed with Dr. Mercedes he agrees. DR MERCEDES ADMITTED THE PT Diagnostic Imaging: Viewed by Me: Radiology Read. Discussed w/RAD: Radiology Read. CXR Impression: PATIENT: MCKENNA MILLER JR PRESENT AGE: 72 PATIENT ACCOUNT NO: [id number] : 46 LOCATION: [facility] [place] ORDERING PHYSICIAN: Kris MICHAEL SERVICE DATE: 03/11/18-0944 EXAM TYPE: RAD - XRY- PORTABLE CHEST XRAY EXAMINATION: CHEST 1 VIEW CLINICAL INFORMATION: Hypoxia. Lethargy. COMPARISON: 03/08/2018. TECHNIQUE: An AP view of the chest is provided. FINDINGS: The cardiac silhouette is stable. There is a small left pleural effusion with associated airspace disease, similar to prior exam. The osseous structures are stable. IMPRESSION: Small left pleural effusion with airspace disease at the left base. DICTATED BY: Zach Nazario MD DATE/TIME DICTATED:03/11/181539 DRAGGER OUT:MARVIN DATE/TIME TRANSCRIBED:1539 CONFIDENTIAL, DO NOT COPY WITHOUT APPROPRIATE AUTHORIZATION. < Electronically signed in Other Vendor System> SIGNED BY: Zach Nazario MD 03/11/18 6006 Initial ED EKG: normal sinus rhythm, lafb, st elevation not changed from previous (Kris Haynes) Departure Departure Disposition: STILL A PATIENT Condition: Stable Clinical Impression Primary Impression: Hypercapnic respiratory failure Qualifiers: Chronicity: acute Qualified Code: J96.02 - Acute respiratory failure with hypercapnia Referrals: Gregory Camacho MD (PCP/Family) Departure Forms: Customer Survey General Discharge Information Admission Note Spoke With: Gloria Daugherty MD Documentation of Exam: Documentation of any treatments & extenuating circumstances including Concerns Regarding Discharge (functional status, medication knowledge or non-compliance, living conditions, etc.) that warrant an admission rather than observation: [ Pulmonology consult, BiPAP, serial labs, serial EKGs, serial blood gas, monitoring of vital signs, telemetry, critical care, cardiology consult, medication adjustment] (Kris Haynes) Admission Note Documentation of Exam: Documentation of any treatments & extenuating circumstances including Concerns Regarding Discharge (functional status, medication knowledge or non-compliance, living conditions, etc.) that warrant an admission rather than observation: PA/MEDICAL INSURANCE BILLER Co-Sign Statement Statement: ED Attending supervision documentation- [X] I saw and evaluated the patient. I have also reviewed all the pertinent lab results and diagnostic results. I agree with the findings and the plan of care as documented in the PA's/MEDICAL INSURANCE BILLER's documentation. [] I have reviewed the ED Record and agree with the PA's/MEDICAL INSURANCE BILLER's documentation. [] Additions or exceptions (if any) to the PAs/MEDICAL INSURANCE BILLER's note and plan are summarized below: [] 72-year-old male presented to the emergency Department hypercarbic respiratory failure. His CO2 on his blood gas was 100. The patient was placed on BiPAP. His mental status improved over time. On reevaluation his CO2 had come down on the repeat blood gas. He is currently awake and alert. (Mark LING,Boom Borrero) Critical Care Note Critical Care Note Critical Care Time: 75-104 min (Kris Haynes)
[2018-03-11 14:21] LABS: ABSOLUTE BASOPHIL COUNT 0 /CUMM (0.0-0.2); ABSOLUTE EOSINOPHIL COUNT 0 /CUMM (0.0-0.7); ABSOLUTE LYMPH COUNT 1.1 /CUMM (1.2-3.4); ABSOLUTE MONOCYTE COUNT 0.7 /CUMM (0.10-0.60); BASOPHIL % 0.2 % (0.0-2.0); EOSINOPHIL % 0.1 % (0-5); GRANULOCYTE % 81.4 % (42.2-75.2); HEMATOCRIT 49.9 % (42-52); MEAN CORPUSCULAR HGB 28.4 PG (27.0-31.0); MEAN CORPUSCULAR VOLUME 88.6 FL (80.0-94.0); MEAN PLATELET VOLUME 8.6 FL (7.4-10.4); PLATELET COUNT 221 /CUMM (130-400); RED BLOOD CELL CT 5.63 /CUMM (4.70-6.10); WHITE BLOOD CELL COUNT 9.9 /CUMM (4.8-10.8)
--- NOTE | 2018-03-11 15:51 | RADIOLOGY REPORT ---
EXAMINATION: CHEST 1 VIEW CLINICAL INFORMATION: Hypoxia. Lethargy. COMPARISON: 03/08/2018. TECHNIQUE: An AP view of the chest is provided. FINDINGS: The cardiac silhouette is stable. There is a small left pleural effusion with associated airspace disease, similar to prior exam. The osseous structures are stable. IMPRESSION: Small left pleural effusion with airspace disease at the left base.
--- NOTE | 2018-03-11 17:04 | Admission Certification ---
Admission Certification Certification Statement - As attending physician, I certify that at the time of - admission, based on clinical presentation, severity of - symptoms, need for further diagnostic testing and - therapeutic interventions, and risk of adverse outcomes - without in-hospital treatment, in my clinical assessment, - this patient requires an acute hospital stay for a minimum - of two nights or longer. I have also considered psychsocial - factors such as support system, advanced age, financial - issues, cognitive issues, and failed out-patient treatments, - past re-admission history, safety of patient, and lack of - compliance as applicable. Specific rationale supporting this admission is: Acute on chronic hypercapnic respiratory failure needs BiPAP and ICU monitoring.
--- NOTE | 2018-03-11 17:50 | History & Physical ---
See Addendum Archana Araya 03/11/18 1080: General Information and HPI MD Statement: I have seen and personally examined MCKENNA REYES JR and documented this H&P. The patient is a 72 year old M who presented with a patient stated chief complaint of []. 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 The history was obtained from the pts . He was known to be in his usual state of health until one week ago, and was found to be increasingly somnolent in the last week. He was evaluated three days ago in the ED for chief concern of increasing somnolence, and altered mentation; was seen by Dr Levy and etiology was thought to be due to hypercarbia. He did not have any cough, and did not have increasing secretions or inabiilty to clear secretions. No dyspnea upon ambulation, but reported orthopnea for which he has been using extra pillows at night. No fever, no sick contacts. Also reported that he has been using increasing oxygen 2L-->3L in the last 24 hrs. He was brought to the ED when he was found to be non-arousable. No recent LOC, no CP/ Palpitations/pedal edema/dysurea. No nausea, diarrhea, melena, bleeding per rectum. He is weak on the left side of the body, which is chronic and the family has not reported any acute change in neurological status, and ambulates using a cane. Reported being started on lasix ( dose unknown ) a few days ago for the treatment of pedal edema. Allergies/Medications Allergies: Coded Allergies: morphine (Severe, VOMITING 03/08/18) lactose (GI UPSET 07/02/17) Past History Travel History Traveled to [place] past 21 day No Medical History Neurological: NONE EENT: NONE Cardiovascular: HYPERCHOLESTERMIA Respiratory: COPD Gastrointestinal: NONE Hepatic: NONE Renal: NONE Musculoskeletal: degen joint disease Psychiatric: NONE Endocrine: NONE Blood Disorders: NONE Cancer(s): prostate cancer, SKIN CA FAMILY AND MARRIAGE COUNSELLOR/Reproductive: NONE History of MRSA: No History of VRE: No History of CDIFF: No Tetanus Vaccine: 12/01/17 Surgical History Surgical History: TONSILLECTOMY PROSTATECTOMY ULNAR NERVE REPAIR SKIN CA EXCISION Review of Systems Review of Systems Constitutional: Reports: see HPI. EENTM: Denies: visual changes. Cardiovascular: Reports: orthopena. Denies: chest pain, palpitations. Respiratory: Denies: short of breath. GI: Denies: diarrhea. Genitourinary: Denies: dysuria. Musculoskeletal: Denies: joint pain. Skin: Denies: change in skin color, change in hair/nails, jaundice. Neurological/Psychological: Reports: confusion. Hematologic/Endocrine: Denies: bruising. Exam & Diagnostic Data Last 24 Hrs of Vital Signs/I&O Vital Signs Date Time Temp Pulse Resp B/P B/P Pulse O2 O2 Flow FiO2 Mean Ox Delivery Rate 03/11 1805 97.1 85 20 102/84 93 BIPAP 03/11 1623 96.2 76 20 124/60 90 BIPAP 03/11 1544 76 93 03/11 1512 110 98 03/11 1444 Nasal 2.0L Cannula 03/11 1424 96.5 102 20 121/75 96 Nasal 2.0L Cannula 03/11 1142 97.9 91 18 98/63 90 Nasal 2.0L Cannula Intake & Output 03/11 1600 03/11 0800 03/11 0000 Intake Total 0 Output Total Balance 0 Intake, Oral 0 Patient 157 lb Weight Weight Reported by Patient Measurement Method Physical Exam General Appearance No Acute Distress, obtunded not responsive to verbal/painful stimuli on BiPAP Skin No Rashes, No Breakdown Skin Temp/Moisture Exam: Warm/Dry Sepsis Skin Exam (color): Normal for Ethnicity HEENT Atraumatic, PERRLA, mucosal membranes dry Neck Supple, No JVD Lymphatic Cervical nl Cardiovascular Regular Rate, Normal S1, Normal S2, No Murmurs Lungs Normal Air Movement, ronchi b/l Abdomen Normal Bowel Sounds, Soft, No Tenderness Neurological limited neurological exam reflexes 2+ b/l upper and lower extremities except , hyporeflexia on the left upper extremitiy Extremities No Clubbing, No Cyanosis, No Edema Vascular Pulses Symmetrical Sepsis Peripheral Pulse Location: Dorsalis Pedis Sepsis Peripheral Pulse Exam: Normal Body Front and Back (Adult) 1) muscular atrophy on the left upper extremity Last 24 Hrs of Labs/Shade: Laboratory Tests 03/11/18 1700: pH 7.46 H, pCO2 41, pO2 70 L, HCO3 28, ABG O2 Sat (Measured) 95.0 L, P-50 ( Temp Corrected) Y, Carboxyhemoglobin 0.9 L, O2 Concentration % 25%, Temperature 96.2 L, Respiration Rate 30, O2 Delivery Method BIPAP, Vent Mode ST, Expiratory Pressure 6, Inspiratory Pressure 22, Phlebotomy Draw Site RIGHT RADIAL 03/11/18 1450: pH 7.19 *L, pCO2 109 *H, pO2 103 H, HCO3 41 H, ABG O2 Sat (Measured) 96.0, P- 50 (Temp Corrected) Y, Carboxyhemoglobin 1.0 L, O2 Concentration % 2L, Temperature 96.5 L, O2 Delivery Method N/C, Phlebotomy Draw Site LEFT RADIAL 03/11/18 1412: Anion Gap 9, Estimated GFR > 60, BUN/Creatinine Ratio 21.7, Glucose 115 H, Lactic Acid 0.7, Calcium 10.1, Total Bilirubin 0.6, AST 43, ALT 42, Alkaline Phosphatase 64, Troponin I < 0.01, Vkl-W-Dawbpbbfzcr Pept 16.8, Total Protein 7.0, Albumin 4.0, Globulin 3.0, Albumin/Globulin Ratio 1.3, D-Dimer High Sensitivty < 200, CBC w Diff NO MAN DIFF REQ, RBC 5.63, MCV 88.6, MCH 28.4, MCHC 32.0 L, RDW 14.0, MPV 8.6, Gran % 81.4 H, Lymphocytes % 11.5 L, Monocytes % 6.8, Eosinophils % 0.1, Basophils % 0.2, Absolute Granulocytes 8.0 H, Absolute Lymphocytes 1.1 L, Absolute Monocytes 0.7 H, Absolute Eosinophils 0, Absolute Basophils 0 Microbiology 03/11 1814 UPPER RESP: Surveillance Culture - ORD 03/11 1814 GI: Surveillance Culture - ORD Diagnostic Data EKG Results Normal sinus rhythm, left axis deviation, left anterior fascicular block, LVH, no ST-T wave changes; slightly tall T waves likely secondary to LVH. CXR Results Small left pleural effusion with airspace disease at the left base. Other Results CT head pending.. Assessment/Plan Assessment: Mr Reyes is a a 72 year old man w/a PMHx of severe COPD (2 L nocturnal), chronic respiratory failure, diaphragmatic paralysis (left side), Rt TKR s/p knee replacement 2016), hyperlipidemia, degenerative disease with severe central stenosis and cord compression status post surgical decompression( dx'ed 09/2017 ) , was brought to the hospital with a chief concern of AMS a few hours prior to presentation likey due to diaphragmatic paralysis exacerbated by medication use and/or COPD. At the time of admission: Temperature 97.9, pulse rate 91, estrogen 18, blood pressure 98/63 (improved to 124/60), 90% on nasal cannula 2 L. 90% on BiPAP. Pertienent lab findings: Sodium 148, potassium 3.7, chloride 97, bicarbonate 42 (likely from chronic hypercarbia, metabolic compensation or diuretic use), BUN 13, creatinine 0.6, lactic acid 0.7, troponin I-0.01, d-dimer less than 200. ABG 03/11/2018 1450 p.m. revealed pH 7.19, PCO2 109, PO2 103. Improved after being on BiPAP. ABG 03/11/2018 5 PM revealed pH 7.46, PCO2 41, PO2 70. Last echocardiogram : 03 December 2017 Normal size left ventricle. Normal left ventricular wall thickness. Normal left ventricular ejection fraction visually estimated at > 60%. Mild mitral regurgitation. Trace aortic regurgitation. Right ventricular systolic pressure estimated to be elevated at 42 mmHg. Mild pulmonic regurgitation. Last PET scan done in 01/13 : 1. Mildly FDG avid bibasal pulmonary opacities are present. The pattern and mild diffuse FDG activity is not strongly suspicious for a malignant process and is likely inflammatory in etiology. Malignancy would be a less likely explanation for these findings. Continued monitoring of these abnormalities with diagnostic CT imaging is recommended as clinically indicated. Etiology in this case for an acute change in mentation secondary to hypercabia is likely multifactorial secondary to left sided diaphramatic paralysis that was exacerbated by dehydration secondary to drugs, or adverse effect of rameron and worsening lung disease ( COPD ). Doest appear to have any AECOPD at this time. Other differential diagnosis considered at the time of admission- r/o any cerebrovascular accident ( although less likely ), worsening restrictive lung disease with decreased DLCO ?; although a remote possibility cervical cord compression should be kept in mind. Problem list: #1 Hypercarbic respiratory failure #2 history of smoking #3 history of COPD #4 history of prostate cancer #5 mixed restrictive/obstructive lung disease #6 left diaphramatic paralysis #7 hypernatremia Plan: -Admit the patient to ICU for closer monitoring given altered mentation. -CBC to monitor for infection, start abx, if the pt as fever. -Arterial blood gas, if pt is still not responsive. -Lower respiratory cultures, if he has any fever. -CXR to rule out pneumonia in the am. -supplemental oxygen -Maintain oxygen saturation in between 90 to 92% -The patient has hypercarbic respiratory failure ventilator support by an NIPPV for now. Titrate settings as needed. -Bronchodilator therapy with albuterol and ipratropium. TRC. Supplemental O2 prn. -Start iv predniosne 40 Q8, as per the pastry assistant. If the pt doesnt have any respiratory symptoms or findings on exam- would dc steroids. No e/o AE COPD. -Consider starting antibiotics, if the pt has fever or increased sputum production or worsening dyspnea. -Start the home med- Bevispi. If it is unavailable in our formulary an alternative med to be sought or have the family bring the med given his h/o of inability to clear secretions well. -Check CT head to r/o any ischemia when the pt is more stable. Start sc heparin after confirming that he doesnt have any acute bleed, although less likely. -Consider MRI in the am, if the pt has significant neurological deficits on the right side. -Continue D5 1/2 NS at 75 ml/hr for now. Re-evaluate after checking Na. -Check Utox, and consider narcan. -Hold mirtazepine for now. Re-assess the need for this medicaition. -Would decrease the rate of BiPAP to more physiological rate. -Discussed the plan w/ Dr. Carlson, who agreed w/ the above plan. Housekeeping ICU: #1 Central line - none #2 Arterial line - none #3 Magana catheter- none #4 Rectal tube - none #5 NG tube - none #6 IV/peripheral line- placed 03/11/18 #7 IV drips- D5 1/2 NS #8 Vent settings on BiPAP EPAP 6, IPAP 22, RR 28 O@ 25%. #9 pressors- none. 1. DVT PPx- Heparin sc. 2. NPO for now. 3. Code DNR/DNI. As Ranked By This Provider Problem List: 1. Hypercapnic respiratory failure Qualifiers Chronicity: acute Qualified Code: J96.02 - Acute respiratory failure with hypercapnia 2. Fatigue 3. Hypercarbia Core Measures/Misc (08/12) Acute Coronary Syndrome ACS Diagnosis: No Congestive Heart Failure Congestive Heart Failure Diagnosis No Cerebrovascular Accident CVA/TIA Diagnosis: No VTE (View Protocol) VTE Risk Factors Acute Medical Illness No Mechanical VTE Prophylaxis d/t N/A MechProphylax Ordered No VTE Pharm Prophylaxis d/t NA PharmProphylax ordered Sepsis (View protocol) Sepsis Present: No Gloria Daugherty MD 03/11/18 9224: General Information and HPI Allergies/Medications Home Med list Albuterol Sulfate (Proair Hfa) 90 MCG HFA.AER.AD 2 PUF INH Q4-6 PRN PRN copd (Reported) Cholecalciferol (Vitamin D3) 1,000 UNIT TABLET 1 TAB PO DAILY SUPPLEMENT ( Reported) Cyanocobalamin (Vitamin B-12) 1,000 MCG TABLET 1 TAB PO DAILY MENTAL HEATLH ( Reported) Docusate Sodium 100 MG CAPSULE 100 MG PO BID PRN CONSTIPATION STOOL SOFTENER, AVAILABLE OVER THE COUNTER Fluticasone Propionate (Flonase Allergy Relief) 50 MCG/ACTUATION SPRAY.SUSP nasal congestion (Reported) Glycopyrrolate/Formoterol Fum (Bevespi Aerosphere Inhaler) 9 MCG-4.8 MCG HFA.AER.AD 2 PUFF PO BID COPD (Reported) Mirtazapine 15 MG TABLET 1 TAB PO QPM SLEEP HELP (Reported) Rosuvastatin Calcium (Crestor) 10 MG TABLET 1 TAB PO DAILY CHOLESTEROL ( Reported) Ubidecarenone (Coenzyme Q-10) 200 MG CAPSULE 1 TAB PO DAILY HEART HEALTH ( Reported) Past Family/Social History Psychosocial History Other Social History: Family history non contributory to present illness Attending MD Review Statement Attending Statement Attending MD Statement: examined this patient, discuss w/resident/PA/LOCAL AREA NETWORK SYSTEMS ADMINSTRATOR, agreed w/resident/PA/LOCAL AREA NETWORK SYSTEMS ADMINSTRATOR, discussed with family, reviewed EMR data (avail), reviewed images Attending Assessment/Plan: 72-year-old male fairly extensive past medical history including cervical disc disease, chronic diaphragmatic paralysis with atelectatic basal consolidations , COPD, chronic respiratory failure with ex-tobacco history and hyperlipidemia. He made an ER visit on March 08 for hypoxemia. He was seen by Dr. Levy in the emergency room on 03/08 and the thought was that this was likely medication related acute on chronic hypoxic and hypercapnic respiratory failure. The new medicine started was Cymbalta. At that time patient with advised to come in but he wanted to go home and given there was no acute pneumonia and no acute precipitating factor and his respiratory status improved considerably, he was discharged home. He is brought in today after having this episode of lethargy and unresponsiveness at home and a sat that was recorded at 69%. Initially when he came into the emergency room he was lethargic, hypotensive and his initial blood gas showed a pH of 7.19 with a PCO2 of 109 and a PO2 of 103 reflective of acute on chronic hypercapnic respiratory failure with acute hypercapnic respiratory acidosis. He also has this markedly elevated bicarbonate reflecting a compensated metabolic alkalosis. Again there appears to be no localizing infection or COPD exacerbation contributing to this acute deterioration. Although he used to be on fairly hefty dose narcotics in the past, as per his of late he has been on nothing and his U tox done on March 08 was completely negative. At this point I'm unclear as to the etiology of the acute deterioration of his respiratory status. We'll bring him into the ICU, continue his BiPAP while watching his respiratory status and repeat his blood gas to make sure that his hypercapnia and his pH have improved. I don't think there is any indication for antibiotics or steroids at this point but will call a formal pulmonary consult to help clarify that issue. The resident and I spoke to the patient's at length. She is explicitly clear that given patient's known wishes he is DNR/DNI. She understands the severity of the respiratory illness. For now will do BiPAP and follow closely. If his mentation does not improve will have a low threshold to get a CT head. Put him on DVT prophylaxis and follow closely.
[2018-03-11] MEDS ORDERED: VITAMIN D31000 UNI2 PO (18:30)
[2018-03-11] MEDS ORDERED: VITAMIN B-121000 MC3 PO (18:30)
[2018-03-11] MEDS ORDERED: [UNRECOGNIZED DRUG - CODE] PO (18:31)
--- NOTE | 2018-03-11 18:44 | Cons- Pulmonary ---
General Information and HPI Consulting Request Date of Consult: 03/11/18 Requested By: House staff Reason for Consult: Acute on chronic hypercapnic was straight failure History of Present Illness: Patient is 72-year-old with history of COPD documented paralysis chronic hypercapnic respiratory failure recently seen in the emergency room and refused admission. At that time his PCO2 is 66. Bicarbonate had increased suggesting chronic hypercarbia with renal compensation. Today he was unable to be aroused and presented with acute on chronic hypercapnic respiratory failure. Chest x- ray does not show evidence of pneumonia his white count is normal. With BiPAP his hypercapnia has improved and he has a post-hypercapnic metabolic alkalosis associated with mild hypernatremia. Patient remains obtunded Allergies/Medications Allergies: Coded Allergies: morphine (Severe, VOMITING 03/08/18) lactose (GI UPSET 07/02/17) Home Med List: Albuterol Sulfate (Proair Hfa) 90 MCG HFA.AER.AD 2 PUF INH Q4-6 PRN PRN copd (Reported) Cholecalciferol (Vitamin D3) 1,000 UNIT TABLET 1 TAB PO DAILY SUPPLEMENT ( Reported) Cyanocobalamin (Vitamin B-12) 1,000 MCG TABLET 1 TAB PO DAILY MENTAL HEATLH ( Reported) Docusate Sodium 100 MG CAPSULE 100 MG PO BID PRN CONSTIPATION STOOL SOFTENER, AVAILABLE OVER THE COUNTER Fluticasone Propionate (Flonase Allergy Relief) 50 MCG/ACTUATION SPRAY.SUSP nasal congestion (Reported) Glycopyrrolate/Formoterol Fum (Bevespi Aerosphere Inhaler) 9 MCG-4.8 MCG HFA.AER.AD 2 PUFF PO BID COPD (Reported) Mirtazapine 15 MG TABLET 1 TAB PO QPM SLEEP HELP (Reported) Rosuvastatin Calcium (Crestor) 10 MG TABLET 1 TAB PO DAILY CHOLESTEROL ( Reported) Ubidecarenone (Coenzyme Q-10) 200 MG CAPSULE 1 TAB PO DAILY HEART HEALTH ( Reported) Past History Travel History Traveled to [place] past 21 day No Medical History Neurological: NONE EENT: NONE Cardiovascular: HYPERCHOLESTERMIA Respiratory: COPD Gastrointestinal: NONE Hepatic: NONE Renal: NONE Musculoskeletal: degen joint disease Psychiatric: NONE Endocrine: NONE Blood Disorders: NONE Cancer(s): prostate cancer, SKIN CA 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/Reproductive: 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 Surgical History Surgical History: TONSILLECTOMY PROSTATECTOMY ULNAR NERVE REPAIR SKIN CA EXCISION Exam & Diagnostic Data Last 24 Hrs of Vital Signs/I&O Vital Signs Date Time Temp Pulse Resp B/P B/P Pulse O2 O2 Flow FiO2 Mean Ox Delivery Rate 03/11 1805 97.1 85 20 102/84 93 BIPAP 03/11 1623 96.2 76 20 124/60 90 BIPAP 03/11 1544 76 93 03/11 1512 110 98 03/11 1444 Nasal 2.0L Cannula 03/11 1424 96.5 102 20 121/75 96 Nasal 2.0L Cannula 03/11 1142 97.9 91 18 98/63 90 Nasal 2.0L Cannula Intake & Output 03/11 1600 03/11 0800 03/11 0000 Intake Total 0 Output Total Balance 0 Intake, Oral 0 Patient 157 lb Weight Weight Reported by Patient Measurement Method Oxygen saturation FiO2 25% 94% HEENT exam shows 2 mm equal pupils exam of the chest shows diminished breath sounds are no wheezes cardiac exam shows a regular S1 and S2 without murmurs abdomen is soft nontender there is no significant edema. 6 x-ray shows chronic left basilar changes due to paralyzed hemidiaphragm Last 48 Hrs of Labs/Shade: Laboratory Tests 03/11/18 1700: pH 7.46 H, pCO2 41, pO2 70 L, HCO3 28, ABG O2 Sat (Measured) 95.0 L, P-50 ( Temp Corrected) Y, Carboxyhemoglobin 0.9 L, O2 Concentration % 25%, Temperature 96.2 L, Respiration Rate 30, O2 Delivery Method BIPAP, Vent Mode ST, Expiratory Pressure 6, Inspiratory Pressure 22, Phlebotomy Draw Site RIGHT RADIAL 03/11/18 1450: pH 7.19 *L, pCO2 109 *H, pO2 103 H, HCO3 41 H, ABG O2 Sat (Measured) 96.0, P- 50 (Temp Corrected) Y, Carboxyhemoglobin 1.0 L, O2 Concentration % 2L, Temperature 96.5 L, O2 Delivery Method N/C, Phlebotomy Draw Site LEFT RADIAL 03/11/18 1412: Anion Gap 9, Estimated GFR > 60, BUN/Creatinine Ratio 21.7, Glucose 115 H, Lactic Acid 0.7, Calcium 10.1, Total Bilirubin 0.6, AST 43, ALT 42, Alkaline Phosphatase 64, Troponin I < 0.01, Iuy-T-Mlorvtphmwy Pept 16.8, Total Protein 7.0, Albumin 4.0, Globulin 3.0, Albumin/Globulin Ratio 1.3, D-Dimer High Sensitivty < 200, CBC w Diff NO MAN DIFF REQ, RBC 5.63, MCV 88.6, MCH 28.4, MCHC 32.0 L, RDW 14.0, MPV 8.6, Gran % 81.4 H, Lymphocytes % 11.5 L, Monocytes % 6.8, Eosinophils % 0.1, Basophils % 0.2, Absolute Granulocytes 8.0 H, Absolute Lymphocytes 1.1 L, Absolute Monocytes 0.7 H, Absolute Eosinophils 0, Absolute Basophils 0 Assessment/Plan Impression/Plan: 72-year-old gentleman deemed to be DNR/DNI with end-stage lung disease on chronic home O2 for chronic hypoxic respiratory failure admitted with acute on chronic hypercapnic history failure improved on BiPAP. His failure to mentally clear may be related to residual cerebral hypercapnia however other diagnoses should be entertained and CT scan is pending. Family maintains there is no availability of opiates. Patient appears to be mildly dehydrated with hypercapnia Recommendations: Continue BiPAP at current settings. Gentle intravenous hydration with hypotonic fluid. Noncontrast CT scan of the head is pending. At this point this does not appear to be need for antibiotics for pneumonia. Family has verified DNR/DNI status. Aspiration precautions. DVT prophylaxis. Consult Acknowledgment - Thank you for your consult request.
--- NOTE | 2018-03-11 20:17 | CT SCAN REPORT ---
EXAMINATION: CT HEAD WITHOUT CONTRAST CLINICAL INFORMATION: Altered mental status. Concern for mass. COMPARISON: 12/01/2017. TECHNIQUE: Contiguous axial images of the brain were obtained without IV contrast. DLP: 645 mGy-cm. FINDINGS: There are no pathologic extra-axial fluid collections. The lateral, third, fourth ventricles are mildly prominent, though stable, age-appropriate and concordant with the appearance of the sulci. There is no evidence for acute intraparenchymal hemorrhage or infarct. There is neither mass nor mass effect. There is no shift of midline structures. The paranasal sinuses and mastoid air cells are clear. There are no osseous lesions. IMPRESSION: No evidence for acute intracranial injury.
[2018-03-11 20:24] VITALS: BP 121/67
--- NOTE | 2018-03-11 23:41 | Event Note ---
Event Note Event Note: Examined Mr Reyes when he was more awake. He did not have any symptoms- chest pain, palpitations. On examination - AAOx3, Neuro examination- PERRLA, EOMI, Cranial nerves intact. Strength 4/5 on the left upper and lower extremity(which is chronic), Sensations intact b/l, finger nose test- present; babinski negative b/l.
[2018-03-12] VITALS: BP 92/50
[2018-03-12 04:53] LABS: ABSOLUTE BASOPHIL COUNT 0 /CUMM (0.0-0.2); ABSOLUTE EOSINOPHIL COUNT 0 /CUMM (0.0-0.7); ABSOLUTE GRANULOCYTE CT 9.7 /CUMM (1.4-6.5); ABSOLUTE LYMPH COUNT 0.9 /CUMM (1.2-3.4); ABSOLUTE MONOCYTE COUNT 0.7 /CUMM (0.10-0.60); BASOPHIL % 0 % (0.0-2.0); EOSINOPHIL % 0 % (0-5); HEMATOCRIT 45.2 % (42-52); MEAN CORPUSCULAR HGB 28.3 PG (27.0-31.0); MEAN CORPUSCULAR HGB CONC 32.6 G/DL (33.0-37.0); MEAN CORPUSCULAR VOLUME 86.9 FL (80.0-94.0); MEAN PLATELET VOLUME 9.7 FL (7.4-10.4); RBC DISTRIBUTION WIDTH 14.1 % (11.5-14.5); WHITE BLOOD CELL COUNT 11.3 /CUMM (4.8-10.8)
[2018-03-12 05:35] LABS: GRANULOCYTE % 86.2 % (42.2-75.2); PLATELET COUNT 223 /CUMM (130-400)
[2018-03-12 08:00] VITALS: BP 152/88
--- NOTE | 2018-03-12 12:15 | PN- Resident CRCU ---
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 At home he is on 2 L of oxygen at night only for his COPD. Does report increased his oxygen for the past 24 hours. Thinks he is back to his baseline with regards to his respiratory and mental status. Objective Vital Signs & I&O Last 8 Hrs of Vitals and I&O: Intake & Output 03/12 1600 Intake Total 1005 Output Total 225 Balance 780 Intake, IV 525 Intake, Oral 480 Number 1 Bowel Movements Output, Urine 225 Exam General Appearance: no apparent distress, alert, awake, comfortable Head: atraumatic, normal appearance Neck: normal inspection, supple, full range of motion Respiratory: chest non-tender, rhonchi Cardiovascular: regular rate/rhythm Gastrointestinal: normal bowel sounds, soft, non-tender Extremities: normal inspection, no edema, Left foot swollen and rythematous, no pain/ tenderness on palpation Cranial Nerves: normal hearing, normal speech, PERRL, strength 5/5 in RU and RLE , +4/5 in SANDEEP and LLE. Current Medications: Current Medications Sig/Jackie Start time Last Medication Dose Route Stop Time Status Admin Albuterol Sulfate 3 ML Q4P PRN 03/11 2145 AC INH Albuterol Sulfate 2 PUF Q4-6 PRN PRN 03/11 1830 CAN INH Albuterol Sulfate 3 ML Q4H PRN 03/11 1830 AC INH Dextrose/Sodium 1,000 ML Q13H 03/11 1830 DC 03/11 Chloride IV 03/12 0729 1854 Heparin Sodium 5,000 UNIT Q8 03/11 2200 AC 03/12 (Porcine) SC 0724 Magnesium Sulfate 1 GM Q2H 03/12 0715 DC 03/12 Dextrose/Water 100 ML IV 03/12 1114 0918 Methylprednisolone 40 MG Q12 03/12 2100 AC IV Methylprednisolone 0 .STK-MED ONE 03/11 1840 DC .ROUTE Methylprednisolone 40 MG Q8 03/11 1830 DC 03/12 IV 0724 Naloxone HCl 0 .STK-MED ONE 03/11 1840 DC .ROUTE Naloxone HCl 0.4 MG ONCE ONE 03/11 1815 DC 03/11 IV 03/11 181 1854 Non-Formulary 0 SEE ADMIN CRITERIA 03/11 1830 CAN Medication ANY Phosphate 500 MG PC AND AT BEDTIME 03/12 1309 AC PO Phosphate 250 MG PC AND AT BEDTIME 03/12 1300 CAN PO Potassium Chloride 40 MEQ ONCE ONE 03/12 0715 DC 03/12 PO 03/12 0716 0752 Potassium Phosphate 15 mMol ONE ONE 03/12 0930 DC 03/12 Dextrose/Water 250 ML IV 03/12 1334 1026 Sodium Chloride 1,000 ML BOLUS ONE 03/11 1500 DC 03/11 IV 03/11 1559 1512 Impression/Plan Impression/Problem List Impression: Mr Reyes is a a 72 year old man w/a PMHx of severe COPD (2 L nocturnal), chronic respiratory failure, diaphragmatic paralysis (left side), Rt TKR s/p knee replacement 2016), hyperlipidemia, degenerative disease with severe central stenosis and cord compression status post surgical decompression( dx'ed 09/2017 ) , was brought to the hospital with a chief concern of AMS a few hours prior to presentation likey due to Hypercarbic respiratory failure from diaphragmatic paralysis exacerbated by medication use and/or COPD. Patient is admitted to the ICU for management of the following issues; Respiratory 1. Hypercarbic respiratory failure; ABGs at the time of admission showed a pH of 7.19 and with PCO2 of 109 and bicarbonate 41. She was started on BiPAP with 55% oxygen, repeat ABGs couple of hour liters showed improvement with a pH of 7.46 PCO2 41 and bicarbonate 28. Patient has has a history of COPD, even though does mention requiring increased oxygen for the past 24 hours but does not report any increased cough, sputum production or fever/chills. Patient also has chronic respiratory failure from left-sided diaphragmatic paralysis. Phosphorus level was 1.1 this morning, which could affect the diaphragmatic functioning and responsible for patient's current symptoms. - Patient currently on 3 L of oxygen via nasal cannula, saturating above 90%. - BiPAP at night - Continue Solu-Medrol 40 mg every 12. - Monitor off antibiotics - Patient started on Phosphorus 500 mg PC and at bedtime. - Will repeat levels @ 6 pm today and replete accordingly. - Monitor Vitals and WBC Curve Infectious; Patient's left foot is swollen and erythematous, per the swelling has always been there but erythema is new. Denies any trauma. Patient remains afebrile, WBC count increased slightly from 9.9 to 11.3(could be from steroid use). - Left lower extremity Doppler to rule out DVT - We will do a chest x-ray to rule out any soft tissue infection or fractures, - Monitor off antibiotics for now. Cardiology; None Heme; None Metabolic; 1. Hyperlipidemia; - Continue Rosuvastatin. 2. Hypophosphatemia; - Continue Nutra-phos 500mg QID. - Repeat labs later in the evening today and replete accordingly. 3. Hypomagnesemia; - Continue to monitor and replete accordingly. Alimentary; 1. Hyperbilirubinemia; patient's total bilirubin increased from 0.6 to 10.4 this morning. Denies any abdominal pain, nausea, vomiting or fever/chills. - We'll obtain right upper quadrant ultrasound to rule out any pathology. Nephro; None Neuro; 1. Somnolence/Altered mental status; likely secondary to hypercarbia. Resolved DVT Prophylaxis; ALPS, S/C Lovenox Patient is DNR/DNI Heart Healthy Diet Problem List: 1. Hypercapnic respiratory failure Pain Ratin Pain Location: NA Pain Goal: Remain pain free Pain Plan: NA Tomorrow's Labs & Rationales: CBC ICU Bundle Plan DVT/Prophylaxis: mechanical, pharmacological Robyn PAYTON,[place] 03/12/18 1448: Attending MD Review Statement Attending Sign Off Attending Cosign Statement: I have: examined this patient, reviewed [facility] E[facility] data, personally reviewd images, discussd w/resident/PA/PLANT MAINTENANCE ENGINEER, discussed mgmt plan w/xu, discussed mgmt plan w/CM, discussed mgmt plan w/pt, agreed w/resident/PA/PLANT MAINTENANCE ENGINEER, amended to note. Other Findings: Impression 72 year old man * acute on chronic (improved) hypercarbic respiratory failure - can be likely secondary to exacerbation of COPD Plan -off bipap now, can use prn and nocturnal for tonight -reduce solumedrol to 40mg iv q12h -trc/nebs -replete electrolytes DVT prophylaxis at all times TTS 35 min DG to gen med
--- NOTE | 2018-03-12 13:18 | ULTRASOUND REPORT ---
EXAMINATION: US TRIPLEX LOWER EXTREMITY, LEFT CLINICAL INFORMATION: Left lower extremity/foot swollen and erythematous. COMPARISON: 12/03/2017 TECHNIQUE: Color-flow triplex imaging with spectral analysis and compression Doppler were performed on the lower extremity. FINDINGS: Respiratory variation, normal compression and augmented flow are noted throughout the lower extremity. The visualized common femoral vein, superficial femoral vein, profunda femoral vein, popliteal vein and midcalf peroneal and posterior tibial venous segments show no evidence of deep venous thrombosis. There is no Mcmullen's cyst. IMPRESSION: Normal triplex scan without evidence of deep venous thrombosis involving the lower extremity.
--- NOTE | 2018-03-12 13:44 | ULTRASOUND REPORT ---
EXAMINATION: US ABDOMEN LIMITED CLINICAL INFORMATION: Elevated total bilirubin level. Rule out liver/gallbladder pathology. COMPARISON: PET/CT scan dated 01/08/2018. TECHNIQUE: Real-time imaging of the right upper quadrant abdominal viscera. FINDINGS: PANCREAS: The pancreas is obscured by overlying bowel gas. LIVER: Normal. The liver demonstrates normal size, contour and echogenicity. No focal lesion or intrahepatic biliary duct dilatation. GALLBLADDER: There is a 0.5 x 0.4 x 0.4 cm echogenic nonshadowing focus seen adherent to the nondependent gallbladder wall, most consistent with a small polyp. The gallbladder is physiologically distended without evidence of stones, sludge, wall thickening or pericholecystic fluid. COMMON BILE DUCT: Normal in caliber measuring 0.2 cm in diameter. RIGHT KIDNEY: Normal. No hydronephrosis. No renal calculi or focal parenchymal lesions. The kidney measures 11.7 cm in maximum dimension. FREE FLUID: None. IMPRESSION: 1. Small gallbladder wall polyp is seen. The gallbladder is otherwise unremarkable. No evidence of acute cholecystitis or biliary obstruction. 2. Pancreas obscured by overlying bowel gas. 3. Liver unremarkable.
[2018-03-12 16:00] VITALS: BP 148/68
--- NOTE | 2018-03-12 18:52 | RADIOLOGY REPORT ---
EXAMINATION: XR FOOT, LEFT CLINICAL INFORMATION: Erythema. Swelling. COMPARISON: None TECHNIQUE: AP, lateral, and oblique views of the left foot. FINDINGS: There is no focal bone lesion. No periosteal reaction. No radiographic evidence for osteomyelitis. There is no air in the soft tissue and no radiopaque foreign body. There is joint narrowing DIP joint of the toes with marginal bone spurs. There is a prominent spur of the calcaneus at the plantar surface of the bone. IMPRESSION: 1. No radiographic evidence for osteomyelitis. 2. 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 3. Plantar calcaneal spur.
[2018-03-13] VITALS: BP 126/78
[2018-03-13 06:53] LABS: ABSOLUTE BASOPHIL COUNT 0 /CUMM (0.0-0.2); ABSOLUTE EOSINOPHIL COUNT 0 /CUMM (0.0-0.7); ABSOLUTE GRANULOCYTE CT 7.7 /CUMM (1.4-6.5); ABSOLUTE MONOCYTE COUNT 0.7 /CUMM (0.10-0.60); BASOPHIL % 0.1 % (0.0-2.0); EOSINOPHIL % 0.2 % (0-5); GRANULOCYTE % 81.7 % (42.2-75.2); HEMATOCRIT 41.7 % (42-52); MEAN CORPUSCULAR HGB 28.5 PG (27.0-31.0); MEAN CORPUSCULAR HGB CONC 33.1 G/DL (33.0-37.0); MEAN CORPUSCULAR VOLUME 86.3 FL (80.0-94.0); MEAN PLATELET VOLUME 9.7 FL (7.4-10.4); PLATELET COUNT 213 /CUMM (130-400); RBC DISTRIBUTION WIDTH 14.6 % (11.5-14.5); RED BLOOD CELL CT 4.82 /CUMM (4.70-6.10); WHITE BLOOD CELL COUNT 9.4 /CUMM (4.8-10.8)
[2018-03-13 08:00] VITALS: BP 118/60
--- NOTE | 2018-03-13 08:49 | PN- Housestaff ---
Valarie PAYTON,[facility] 03/13/18 0849: Subjective Follow-up For: # Hypercarbic respiratory failure # History of COPD # mixed restrictive/obstructive lung disease # Left diaphramatic paralysis # History of prostate cancer # Hypernatremia - resolved # Hypophosphatemia - resolved # Left Foot Cellulitis Complaints: no complaints Subjective: Patient reports improvement in his breathing, denies any cough, sputum production or fever/chills. No overnight events. Review of Systems Constitutional: Reports: no symptoms. EENTM: Reports: no symptoms. Cardiovascular: Reports: no symptoms. Respiratory: Reports: no symptoms. Gastrointestinal: Reports: no symptoms. Genitourinary: Reports: no symptoms. Musculoskeletal: Reports: no symptoms. Skin: Reports: no symptoms. Neurological/Psychological: Reports: no symptoms. Hematologic/Endocrine: Reports: no symptoms. Immunologic/Allergic: Reports: no symptoms. Objective Last 24 Hrs of Vital Signs/I&O Vital Signs Date Time Temp Pulse Resp B/P B/P Pulse O2 O2 Flow FiO2 Mean Ox Delivery Rate 03/13 1242 99.0 98 20 118/60 95 Nasal 2.0L Cannula 03/13 1005 94 Nasal 2.0L Cannula 03/13 0800 95 Nasal 2.0L Cannula 03/13 0800 98.5 94 20 118/60 95 Nasal 2.0L Cannula 03/13 0012 89 95 03/13 0000 94 BIPAP 25% 03/13 0000 97.6 88 20 126/78 94 BIPAP 25% 03/12 2220 101 98 03/12 2033 95 Nasal 2.0L Cannula 03/12 1600 93 Nasal 2.0L Cannula 03/12 1600 98.7 103 22 148/68 93 Nasal 2.0L Cannula Intake & Output 03/13 1600 03/13 0800 03/13 0000 Intake Total 720 370 720 Output Total 300 225 Balance 720 70 495 Intake, IV 0 250 Intake, Oral 720 120 720 Number 1 0 0 Bowel Movements Output, Urine 300 225 Physical Exam General Appearance: Alert, Oriented X3, Cooperative Skin: No Rashes, No Breakdown Cardiovascular: Regular Rate, Normal S1, Normal S2 Lungs: Decreased breath sounds Abdomen: Normal Bowel Sounds, Soft, No Tenderness Extremities: No Clubbing, No Cyanosis, Erythema and swelling of left foot Current Medications: Current Medications Sig/Jackie Start time Last Medication Dose Route Stop Time Status Admin Albuterol Sulfate 3 ML Q4P PRN 03/11 2145 AC INH Albuterol Sulfate 3 ML Q4H PRN 03/11 1830 AC INH Cephalexin 500 MG Q6 03/13 1800 UNVr PO Heparin Sodium 5,000 UNIT Q8 03/11 2200 AC 03/13 (Porcine) SC 1312 Magnesium Sulfate 1 GM Q2H 03/13 0045 DC 03/13 Dextrose/Water 100 ML IV 03/13 0444 0300 Methylprednisolone 40 MG Q12 03/12 2100 AC 03/13 IV 0832 Phosphate 250 MG PC AND AT BEDTIME 03/13 0900 AC 03/13 PO 1312 Phosphate 500 MG PC AND AT BEDTIME 03/12 1309 DC 03/12 PO 2108 Potassium Phosphate 15 mMol ONE ONE 03/12 0930 DC 03/12 Dextrose/Water 250 ML IV 03/12 1334 1026 Last 24 Hrs of Lab/Shade Results Last 24 Hrs of Labs/Mics: Laboratory Tests 03/13/18 0527: Anion Gap 11, Estimated GFR > 60, Glucose 107 H, Calcium 9.1, Phosphorus 3.3, Magnesium 1.9, Total Bilirubin 0.9, AST 61 H, ALT 49, Albumin 3.2 L, CBC w Diff NO MAN DIFF REQ, RBC 4.82, MCV 86.3, MCH 28.5, MCHC 33.1, RDW 14.6 H, MPV 9.7, Gran % 81.7 H, Lymphocytes % 10.9 L, Monocytes % 7.1, Eosinophils % 0.2, Basophils % 0.1, Absolute Granulocytes 7.7 H, Absolute Lymphocytes 1.0 L, Absolute Monocytes 0.7 H, Absolute Eosinophils 0, Absolute Basophils 0 03/12/18 2315: Anion Gap 10, Estimated GFR > 60, Glucose 113 H, Calcium 9.3, Phosphorus 4.4, Magnesium 1.5 L, Total Bilirubin 0.7, AST 73 H, ALT 49, Albumin 3.4 L Assessment/Plan Assessment: Mr Reyes is a a 72 year old man w/a PMHx of severe COPD (2 L nocturnal), chronic respiratory failure, diaphragmatic paralysis (left side), Rt TKR s/p knee replacement 2016), hyperlipidemia, degenerative disease with severe central stenosis and cord compression status post surgical decompression( dx'ed 09/2017 ) , was brought to the hospital with a chief concern of AMS a few hours prior to presentation likey due to Hypercarbic respiratory failure from diaphragmatic paralysis exacerbated by medication use and/or COPD. Patient is admitted to the ICU for management of the following issues; 1. Hypercarbic respiratory failure; ABGs at the time of admission showed a pH of 7.19 and with PCO2 of 109 and bicarbonate 41. She was started on BiPAP with 55% oxygen, repeat ABGs couple of hour liters showed improvement with a pH of 7.46 PCO2 41 and bicarbonate 28. Patient has has a history of COPD, even though does mention requiring increased oxygen for the past 24 hours but does not report any increased cough, sputum production or fever/chills. Patient also has chronic respiratory failure from left-sided diaphragmatic paralysis. Phosphorus level was 1.1 this morning, which could affect the diaphragmatic functioning and be responsible for patient's current respiratory failure. - Patient currently on 3 L of oxygen via nasal cannula, saturating above 90%. Resting O2 sats dropped down to 80s on room air, will continue supplemenatl O2 for now. - BiPAP at night - Discontinue IV Solu-Medrol and start the patient on Prednisone 40 mg daily. - Monitor off antibiotics - Phosphorus level 3.3 this am, will decrease Neutra-Phos from 500 mg to 250 mg PC and at bedtime. - Monitor Vitals and WBC Curve Left foot cellulitis; Patient's left foot is swollen and erythematous, per the swelling has always been there but erythema is new. Denies any trauma. Patient remains afebrile, WBC count increased slightly from 9.9 to 11.3(could be from steroid use). - Left foot remains erythematous and swollen, will start the patient on PO Keflex 500 mg every 6 for presumed cellulitis. - Remains afebrile with no white blood cell count. - Left lower extremity Doppler negative for DVT - Foot x-ray negative for any soft tissue infection or fractures. Hyperlipidemia; - Continue Rosuvastatin. Hypomagnesemia; - Continue to monitor and replete accordingly. Hyperbilirubinemia; patient's total bilirubin increased from 0.6 to 10.4 this morning. Denies any abdominal pain, nausea, vomiting or fever/chills. - RUQ ultrasound negative for any acute pathology. DVT Prophylaxis; ALPS, S/C Lovenox Patient is DNR/DNI Heart Healthy Diet Problem List: 1. Hypercapnic respiratory failure 2. Cellulitis Pain Ratin Pain Location: None Pain Goal: Remain pain free Pain Plan: NA Tomorrow's Labs & Rationales: CBC Icu bundle Zach Harding MD 03/13/18 1710: Attending MD Review Statement Attending Statement Attending MD Statement: examined this patient, discuss w/resident/PA/MOTORBOAT MECHANIC HELPER, agreed w/resident/PA/MOTORBOAT MECHANIC HELPER, discussed with family, reviewed EMR data (avail), discussed with nursing, discussed with case mgmt, amended to note Attending Assessment/Plan: The patient was seen and discussed with house staff, family (), nursing, and case management. Clinically improved at present. Alert & oriented. Phos being repleted. OK to transfer to general medicine. PT evaluation- titrate oxygen.
--- NOTE | 2018-03-13 08:50 | PN- Pulmonary ---
Subjective HPI/Critical Care Issues: Patient is awake alert ambulating in the room Objective Current Medications: Current Medications Sig/Jackie Start time Last Medication Dose Route Stop Time Status Admin Albuterol Sulfate 3 ML Q4P PRN 03/11 2145 AC INH Albuterol Sulfate 3 ML Q4H PRN 03/11 1830 AC INH Heparin Sodium 5,000 UNIT Q8 03/11 2200 AC 03/13 (Porcine) SC 0656 Magnesium Sulfate 1 GM Q2H 03/13 0045 DC 03/13 Dextrose/Water 100 ML IV 03/13 0444 0300 Magnesium Sulfate 1 GM Q2H 03/12 0715 DC 03/12 Dextrose/Water 100 ML IV 03/12 1114 0918 Methylprednisolone 40 MG Q12 03/12 2100 AC 03/13 IV 0832 Methylprednisolone 40 MG Q8 03/11 1830 DC 03/12 IV 0724 Phosphate 250 MG PC AND AT BEDTIME 03/13 0900 AC 03/13 PO 0832 Phosphate 500 MG PC AND AT BEDTIME 03/12 1309 DC 03/12 PO 2108 Phosphate 250 MG PC AND AT BEDTIME 03/12 1300 CAN PO Potassium Phosphate 15 mMol ONE ONE 03/12 0930 DC 03/12 Dextrose/Water 250 ML IV 03/12 1334 1026 Vital Signs & I&O Last 24 Hrs of Vitals and I&O: Vital Signs Date Time Temp Pulse Resp B/P B/P Pulse O2 O2 Flow FiO2 Mean Ox Delivery Rate 03/13 0012 89 95 03/13 0000 94 BIPAP 25% 03/13 0000 97.6 88 20 126/78 94 BIPAP 25% 03/12 2220 101 98 03/12 2033 95 Nasal 2.0L Cannula 03/12 1600 93 Nasal 2.0L Cannula 03/12 1600 98.7 103 22 148/68 93 Nasal 2.0L Cannula 03/12 0856 91 Nasal 3.0L Cannula 03/12 0855 90 Intake & Output 03/13 1600 03/13 0800 03/13 0000 Intake Total 370 720 Output Total 300 225 Balance 70 495 Intake, IV 250 Intake, Oral 120 720 Number 0 0 Bowel Movements Output, Urine 300 225 Saturation 2 L baseline 95% exam of his chest shows diminished breath sounds there are no wheezes or crackles cardiac exam shows a regular S1 and S2 without murmurs Impression/Plan Impression/Plan Impression/Plan: 82-year-old with end-stage lung disease improved acute on chronic hypercapnic respiratory failure. Back to baseline with chronic hypoxic respiratory failure. Recommendations: DC IV Solu-Medrol begin by mouth prednisone. Patient should be referred to the COPD wellness clinic after discharge. Physical therapy evaluation.
[2018-03-13 12:42] VITALS: BP 118/60
--- NOTE | 2018-03-13 14:27 | Discharge Summary ---
Visit Information Visit Dates Admission Date: 03/11/18 Discharge Date: 03/14/18 Hospital Course Course Attending Physician: Wellington Carlson MD Primary Care Physician: Janice PAYTON,Colemannathaly Hospital Course: 72 year old man w/a PMHx of severe COPD (2 L nocturnal), chronic respiratory failure, diaphragmatic paralysis (left side), Rt TKR s/p knee replacement 2016) , hyperlipidemia, 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 Patient was initially admitted to ICU, later tranferred to [facility] for management of the following issues. # Hypercarbic respiratory failure # History of COPD # Mixed restrictive/obstructive lung disease # Left diaphramatic paralysis # History of prostate cancer # Hypernatremia # Hypophosphatemia # Left Foot Cellulitis Altered mental status liklely from Hypercarbic respiratory failure Patient was brought to the ED when he was found to be non-arousable and has been somnolent for the 1 week. Upon admission the patient mentioned requiring increased oxygen demand but did not report any increased cough, sputum production or fever/chills. ABGs at the time of admission showed a pH of 7.19 and with PCO2 of [address] was negative for any acute causes. He was started on BiPAP with 55% oxygen and repeat ABGs couple of hour later showed improvement with a pH of 7.46 PCO2 41 and bicarbonate 28. A possible cause of his chronic respiratory failure may be due to left-sided diaphragmatic paralysis. Phosphorus level was found to be 1.1 which could affect the diaphragmatic functioning and responsible for patient's current symptoms/ respiratory failure. Phosphorus levels was repleted as needed. BiPAP was continued at night and he was maintained on oxygen via nasal cannula during the daytime. He was started on IV Solu-Medrol which was later transitioned to po prednisone. He was monitored off antibiotics. He was afebrile during his hospital with a borderline leukocytosis most likely secondary to steroids An overnight pulse oximetry test was done he did not meet the criteria for home CPAP. He was discharged with his home oxygen regimen, prednisone taper, and Symbicort and Spiriva. He was advised to follow up with pulmnology who will also schedule a sleep study. Left foot cellulitis Patient's left foot was swollen and erythematous. Per the : the swelling has always been there but erythema was new. Denied any trauma. Patient remained afebrile, WBC count increased slightly from 9.9 to 11.3(could be from steroid use). Left lower extremity Doppler was negative for any DVT. X-ray ruled out any osteomyelitis, soft tissue infection or fractures. Patient was started on Keflex and discharged on keflex to complete 1 week total course of antibiotics. Hypomagnesemia Magnesium level was monitored and repleted accordingly. Hypokalemia Patient was sent home on K-Corina 20mEq daily. Hyperbilirubinemia Patient's total bilirubin increased from 0.6 to 1.4. The patient denied any abdominal pain, nausea, vomiting or fever/chills. Right upper quadrant ultrasound was obtained which was negative for any acute pathology. Hyperlipidemia Rosuvastatin was continued. Allergies: Coded Allergies: morphine (Severe, VOMITING 03/08/18) lactose (GI UPSET 07/02/17) Significant Procedures: XRY-PORTABLE CHEST XRAY FINDINGS: The cardiac silhouette is stable. There is a small left pleural effusion with associated airspace disease, similar to prior exam. The osseous structures are stable. IMPRESSION: Small left pleural effusion with airspace disease at the left base. CT HEAD WO IV CONTRAST FINDINGS: There are no pathologic extra-axial fluid collections. The lateral, third, fourth ventricles are mildly prominent, though stable, age-appropriate and concordant with the appearance of the sulci. There is no evidence for acute intraparenchymal hemorrhage or infarct. There is neither mass nor mass effect. There is no shift of midline structures. The paranasal sinuses and mastoid air cells are clear. There are no osseous lesions. IMPRESSION: No evidence for acute intracranial injury. US-LIMITED ABDOMEN IMPRESSION: 1. Small gallbladder wall polyp is seen. The gallbladder is otherwise unremarkable. No evidence of acute cholecystitis or biliary obstruction. 2. Pancreas obscured by overlying bowel gas. 3. Liver unremarkable. XRY-FOOT COMPLETE, LEFT FINDINGS: There is no focal bone lesion. No periosteal reaction. No radiographic evidence for osteomyelitis. There is no air in the soft tissue and no radiopaque foreign body. There is joint narrowing DIP joint of the toes with marginal bone spurs. There is a prominent spur of the calcaneus at the plantar surface of the bone. IMPRESSION: 1. No radiographic evidence for osteomyelitis. 2. 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 3. Plantar calcaneal spur. US-UNILATERAL VENOUS DOPPLER FINDINGS: Respiratory variation, normal compression and augmented flow are noted throughout the lower extremity. The visualized common femoral vein, superficial femoral vein, profunda femoral vein, popliteal vein and midcalf peroneal and posterior tibial venous segments show no evidence of deep venous thrombosis. There is no Mcmullen's cyst. IMPRESSION: Normal triplex scan without evidence of deep venous thrombosis involving the lower extremity. Disposition Summary Disposition Principal Diagnosis: Acute hypoxic respiratory failure Additional Diagnosis: Hypophosphatemia Left foot cellulitis Discharge Disposition: home health services Discharge Instructions General Discharge Information Code Status: Do Not Resucitate/Intubat Patient's Diet: Regular Patient's Activity: As tolerated Follow-Up Instructions/Appts: Please follow-up with your PCP within a week after discharge. Please follow-up with your pathology manager within a week after discharge. Please take all your medications as directed. Medications at Discharge Discharge Medications: Stop taking the following medications: Glycopyrrolate/Formoterol Fum (Bevespi Aerosphere Inhaler) 9 MCG-4.8 MCG HFA.AER.AD ORAL TWICE DAILY Continue taking these medications: Rosuvastatin Calcium (Crestor) 10 MG TABLET 1 Tablet ORAL DAILY Comments: NOT GIVEN WHILE IN HOSPITAL Fluticasone Propionate (Flonase Allergy Relief) 50 MCG/ACTUATION SPRAY.SUSP DAILY as needed for nasal congestion Comments: NOT GIVEN WHILE IN HOSPITAL Docusate Sodium (Docusate Sodium) 100 MG CAPSULE 100 Milligram ORAL TWICE DAILY as needed for CONSTIPATION Days = 14 Instructions: STOOL SOFTENER, AVAILABLE OVER THE COUNTER Comments: NOT GIVEN WHILE IN HOSPITAL Mirtazapine (Mirtazapine) 15 MG TABLET 1 Tablet ORAL Every night Qty = 30 Comments: NOT GIVEN WHILE IN HOSPITAL Albuterol Sulfate (Proair Hfa) 90 MCG HFA.AER.AD 2 Puff Inhale through mouth EVERY 4-6 HOURS NEEDED as needed for copd Comments: NOT GIVEN WHILE IN HOSPITAL Cyanocobalamin (Vitamin B-12) 1,000 MCG TABLET 1 Tablet ORAL DAILY Qty = 30 Comments: NOT GIVEN WHILE IN HOSPITAL Cholecalciferol (Vitamin D3) 1,000 UNIT TABLET 1 Tablet ORAL DAILY Comments: NOT GIVEN WHILE IN HOSPITAL Ubidecarenone (Coenzyme Q-10) 200 MG CAPSULE 1 Tablet ORAL DAILY Comments: NOT GIVEN WHILE IN HOSPITAL Start taking the following new medications: Tiotropium Herrick (Spiriva) 18 MCG CAP.W.DEV 1 Puff Inhale through mouth DAILY Qty = 1 Refills = 1 Comments: Last Taken:03/15/18 Time: 10:30 AM Budesonide/Formoterol Fumarate (Symbicort 160-4.5 Mcg Inhaler) 160 MCG-4.5 MCG/ ACTUATION HFA.AER.AD 2 Puff Inhale through mouth TWICE DAILY Qty = 1 Refills = 1 Comments: Last Taken:03/15/18 Time: 10:30 AM Prednisone (Prednisone) 10 MG TABLET 1 Tablet ORAL DAILY Qty = 12 No Refills Instructions: DATE TAB 03/16 3 03/17- 2 03/20- 1 Comments: Last Taken:03/15/18 Time: 10:30 AM Potassium Chloride (Klor-Con) 20 MEQ PACKET 1 Packet ORAL DAILY Qty = 30 No Refills Cephalexin (Keflex) 500 MG CAPSULE 1 Capsule ORAL EVERY SIX HOURS Qty = 21 No Refills Comments: Last Taken:03/15/18 Time: 12:00 PM Copies To: Rachael Zabala DO, MD,Topher Hernandez Time: 12:00 PM Copies To: Rachael Zabala DO, MD,Topher Hernandez
[2018-03-13 21:49] VITALS: BP 114/82
[2018-03-14 07:10] VITALS: BP 112/78
--- NOTE | 2018-03-14 07:25 | PN- Housestaff ---
Subjective Follow-up For: # Hypercarbic respiratory failure # History of COPD # Left Foot Cellulitis # mixed restrictive/obstructive lung disease # Left diaphramatic paralysis # History of prostate cancer # Hypernatremia - resolved # Hypophosphatemia - resolved Subjective: No acute events overnight. Patient states that his breathing is better and thinks is currently baseline. When asked by his altered mental status the patient states that he was never altered. Review of Systems Constitutional: Reports: see HPI. Objective Last 24 Hrs of Vital Signs/I&O Vital Signs Date Time Temp Pulse Resp B/P B/P Pulse O2 O2 Flow FiO2 Mean Ox Delivery Rate 03/14 1343 97.8 101 20 120/80 95 Nasal Cannula 03/14 0949 93 Nasal 2.0L Cannula 03/14 0800 95 Nasal 2.0L Cannula 03/14 0710 97.6 59 18 112/78 96 03/14 0014 79 95 03/14 0000 95 Nasal 2.0L Cannula 03/13 2307 94 97 03/13 2149 98.3 95 19 114/82 96 Nasal 3.0L Cannula 03/13 1600 Nasal 2.0L Cannula Intake & Output 03/14 1600 03/14 0800 03/14 0000 Intake Total 820 360 720 Output Total 650 400 Balance 170 -40 720 Intake, IV 20 Intake, Oral 800 360 720 Number 0 0 Bowel Movements Output, Urine 650 400 Physical Exam General Appearance: Alert, Oriented X3, Cooperative Lungs: Clear to Auscultation, decreased air movement Abdomen: Normal Bowel Sounds, Soft, No Tenderness Extremities: 2+ radial pulses Current Medications: Current Medications Sig/Jackie Start time Last Medication Dose Route Stop Time Status Admin Albuterol Sulfate 3 ML Q4P PRN 03/11 2145 AC INH Albuterol Sulfate 3 ML Q4H PRN 03/11 1830 AC INH Budesonide/ 2 PUF BID 03/14 1200 AC 03/14 Formoterol Fumarate INH 1332 Cephalexin 500 MG Q6 03/13 1800 AC 03/14 PO 1218 Heparin Sodium 5,000 UNIT Q8 03/11 2200 AC 03/14 (Porcine) SC 1332 Phosphate 250 MG PC AND AT BEDTIME 03/13 0900 AC 03/14 PO 1218 Prednisone 30 MG DAILY 03/15 09 AC PO 03/23 0859 Prednisone 40 MG DAILY 03/14 0900 DC 03/14 PO 0809 Tiotropium Randolph 1 PUF DAILY 03/14 1156 AC 03/14 INH 1332 Last 24 Hrs of Lab/Shade Results Last 24 Hrs of Labs/Mics: Laboratory Tests 03/14/18 0625: Anion Gap 8, Estimated GFR > 60, BUN/Creatinine Ratio 36.7 H, Phosphorus 3.6, CBC w Diff NO MAN DIFF REQ, RBC 5.02, MCV 87.2, MCH 28.7, MCHC 32.9 L, RDW 14.6 H, MPV 9.9, Gran % 70.6, Lymphocytes % 20.2 L, Monocytes % 8.0, Eosinophils % 0.7, Basophils % 0.5, Absolute Granulocytes 8.4 H, Absolute Lymphocytes 2.4, Absolute Monocytes 0.9 H, Absolute Eosinophils 0.1, Absolute Basophils 0.1 Assessment/Plan Assessment: 72 year old man w/a PMHx of severe COPD (2 L nocturnal), chronic respiratory failure, diaphragmatic paralysis (left side), Rt TKR s/p knee replacement 2016) , hyperlipidemia, 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 Patient is admitted to the ICU for management of the following issues; #Hypercarbic respiratory failure 2/2 to COPD vs L sided diaphragmatic paralysis. ABGs at the time of admission showed a pH of 7.19 and with PCO2 of 109 and bicarbonate 41. She was started on BiPAP with 55% oxygen, repeat ABGs couple of hour liters showed improvement with a pH of 7.46 PCO2 41 and bicarbonate 28. -Start Symbicort, Spiriva -ABG at 10 PM -monitor phosphorous, which could affect the diaphragmatic functioning and be responsible for patient's current respiratory failure. -currently back to baseline 2L -Continue prednisone taper - Monitor off antibiotics #Left foot cellulitis; Patient's left foot is swollen and erythematous, per the swelling has always been there but erythema is new. Denies any trauma. Left lower extremity Doppler negative for DVT Foot x-ray negative for any soft tissue infection or fractures. -Patient remains afebrile. WBC 9.4-11.9 (could be from steroid use). -continue Keflex 500 mg every 6 for presumed cellulitis. #Hyperlipidemia - Continue Rosuvastatin. #Hypomagnesemia; - Continue to monitor and replete accordingly. #Hyperbilirubinemia - resolved 1.4 -> .9 - RUQ ultrasound negative for any acute pathology. #DVT Prophylaxis -S/C Lovenox #DNR/DNI Problem List: 1. Hypercapnic respiratory failure 2. Cellulitis Pain Ratin Pain Location: none Pain Goal: Pain 4 or less Pain Plan: pathway Tomorrow's Labs & Rationales: cbc mg phos
[2018-03-14 08:24] LABS: ABSOLUTE BASOPHIL COUNT 0.1 /CUMM (0.0-0.2); ABSOLUTE EOSINOPHIL COUNT 0.1 /CUMM (0.0-0.7); ABSOLUTE GRANULOCYTE CT 8.4 /CUMM (1.4-6.5); ABSOLUTE LYMPH COUNT 2.4 /CUMM (1.2-3.4); ABSOLUTE MONOCYTE COUNT 0.9 /CUMM (0.10-0.60); BASOPHIL % 0.5 % (0.0-2.0); EOSINOPHIL % 0.7 % (0-5); GRANULOCYTE % 70.6 % (42.2-75.2); HEMATOCRIT 43.8 % (42-52); MEAN CORPUSCULAR HGB 28.7 PG (27.0-31.0); MEAN CORPUSCULAR HGB CONC 32.9 G/DL (33.0-37.0); MEAN CORPUSCULAR VOLUME 87.2 FL (80.0-94.0); MEAN PLATELET VOLUME 9.9 FL (7.4-10.4); PLATELET COUNT 209 /CUMM (130-400); RBC DISTRIBUTION WIDTH 14.6 % (11.5-14.5); RED BLOOD CELL CT 5.02 /CUMM (4.70-6.10); WHITE BLOOD CELL COUNT 11.9 /CUMM (4.8-10.8)
[2018-03-14] MEDS ORDERED: PREDNISONE10 M2 PO ×3 (10:51→11:43)
[2018-03-14] MEDS ORDERED: CEPHALEXIN500 M3 PO ×2 (10:51→11:43)
--- NOTE | 2018-03-14 10:54 | Patient Discharge Instructions ---
Discharge Instructions General Discharge Information You were seen/treated for: #1 Hypercarbic respiratory failure #2 History of COPD #3 mixed restrictive/obstructive lung disease #4 Left diaphramatic paralysis #5 History of prostate cancer #6 Hypernatremia - resolved #7 hypophosphatemia - resolved Special Instructions: Please follow-up with your PCP within a week after discharge. Please follow-up with your boxcar weigher within a week after discharge. Please have Dr. Levy schedule an outpatient sleep study. You can continue your normal oxygen regimen. Please take all your medications including antibiotics as directed. Diet Continue normal diet: Yes Activity Full Activity/No Limits: Yes Acute Coronary Syndrome Inclusion Criteria At DC or during hospital stay patient has or had the following: ACS DIAGNOSIS No Discharge Core Measures Meds if any: Prescribed or Continued at Discharge Meds if any: NOT Prescribed or Continued at Discharge Congestive Heart Failure Inclusion Criteria At DC or during hospital stay patient has or had the following: CHF DIAGNOSIS No Discharge Core Measures Meds if any: Prescribed or Continued at Discharge Meds if any: NOT Prescribed or Continued at Discharge Cerebrovascular accident Inclusion Criteria At DC or during hospital stay patient has or had the following: CVA/TIA Diagnosis No Discharge Core Measures Meds if any: Prescribed or Continued at Discharge Meds if any: NOT Prescribed or Continued at Discharge Venous thromboembolism Inclusion Criteria VTE Diagnosis No VTE Type NONE VTE Confirmed by (Test) DUPLEX SCAN LOWER EXT Discharge Core Measures - Per Current guidelines, there needs to be overlap - treatment for the first 5 days of Warfarin therapy. - If discharged on Warfarin prior to 5 days of - overlap therapy, the patient will need to be - assessed for post discharge needs including - *Post discharge parental anticoagulation - *Warfarin and/or parental anticoagulation education - *Follow up date to check INR post discharge At least 5 days overlap therapy as Inpatient No Meds if any: Prescribed or Continued at Discharge Note: Overlap Therapy is Warfarin and Anticoagulant Meds if any: NOT Prescribed or Continued at Discharge
--- NOTE | 2018-03-14 11:38 | PN- Pulmonary ---
Subjective HPI/Critical Care Issues: Doing better no wheezing walking sat on walking 93 Objective Current Medications: Current Medications Sig/Jackie Start time Last Medication Dose Route Stop Time Status Admin Albuterol Sulfate 3 ML Q4P PRN 03/11 2145 AC INH Albuterol Sulfate 3 ML Q4H PRN 03/11 1830 AC INH Cephalexin 500 MG Q6 03/13 1800 AC 03/14 PO 0540 Heparin Sodium 5,000 UNIT Q8 03/11 2200 AC 03/14 (Porcine) SC 0540 Methylprednisolone 40 MG Q12 03/12 2100 DC 03/13 IV 0832 Phosphate 250 MG PC AND AT BEDTIME 03/13 0900 AC 03/14 PO 0809 Prednisone 40 MG DAILY 03/14 0900 AC 03/14 PO 0809 Vital Signs & I&O Last 24 Hrs of Vitals and I&O: Vital Signs Date Time Temp Pulse Resp B/P B/P Pulse O2 O2 Flow FiO2 Mean Ox Delivery Rate 03/14 0949 93 Nasal 2.0L Cannula 03/14 0800 95 Nasal 2.0L Cannula 03/14 0710 97.6 59 18 112/78 96 03/14 0014 79 95 03/14 0000 95 Nasal 2.0L Cannula 03/13 2307 94 97 03/13 2149 98.3 95 19 114/82 96 Nasal 3.0L Cannula 03/13 1600 Nasal 2.0L Cannula 03/13 1242 99.0 98 20 118/60 95 Nasal 2.0L Cannula Intake & Output 03/14 1600 03/14 0800 03/14 0000 Intake Total 360 720 Output Total 400 Balance -40 720 Intake, Oral 360 720 Number 0 Bowel Movements Output, Urine 400 Impression/Plan Impression/Plan Impression/Plan: General Appearance Alert, Oriented X3, Cooperative, No Acute Distress, Skin No Rashes Skin Temp/Moisture Exam: Warm/Dry HEENT Atraumatic, PERRLA, EOMI, Mucous Membr. 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 with good recovery of function * Atelectasis bibasilar due to cervical dz causeing diapharm dysfunction and left diapharamatic paralysis * COPD fev1 of 1.49 litres, with mild copde * Cellulitis foot * History of smoking 30 or more pack years quit 2015 * Personal history of malignant neoplasm of prostate s/p surg needs follw up * Mixed restrictive and obstructive lung disease * recent colon polyp removal REC cont current rx Prednisone 30 for two days and taper Nebs prn Spiriva one puff daily Start symbicort bid Hold bipap tonight Please order nocturnal oxymetry on ROOM AIR TO BEGIN with and if has sig desat for more than 5 mins then do nocturnal oxymetry with oxygen ABG this pm to assess baselin pco2 Will follow
[2018-03-14] MEDS ORDERED: SYMBICORT 16010.2 GM INH (12:01)
[2018-03-14] MEDS ORDERED: SPIRIVA18 MCG INH (12:01)
[2018-03-14 13:43] VITALS: BP 120/80
--- NOTE | 2018-03-14 13:46 | PN- Att Addend ---
Attending Addendum Attending Brief Note Patient seen and examined, currently denies any shortness of breath. He is at his baseline oxygen. He did require BiPAP last night. Vital Signs Date Time Temp Pulse Resp B/P B/P Pulse O2 O2 Flow FiO2 Mean Ox Delivery Rate 03/14 0949 93 Nasal 2.0L Cannula 03/14 0800 95 Nasal 2.0L Cannula 03/14 0710 97.6 59 18 112/78 96 03/14 0014 79 95 03/14 0000 95 Nasal 2.0L Cannula 03/13 2307 94 97 03/13 2149 98.3 95 19 114/82 96 Nasal 3.0L Cannula 03/13 1600 Nasal 2.0L Cannula on exam; aox3, nad. cv; s1,s2, rrr resp; clear b/l abd; soft, nt, bs+ ext; no edema Laboratory Tests 03/14 625 Chemistry Sodium (137 - 145 mmol/L) 143 Potassium (3.5 - 5.1 mmol/L) 4.2 Chloride (98 - 107 mmol/L) 98 Carbon Dioxide (22 - 30 mmol/L) 37 H Anion Gap (5 - 16) 8 BUN (9 - 20 mg/dL) 22 H Creatinine (0.7 - 1.2 mg/dL) 0.6 L Estimated GFR (>60 ml/min) > 60 BUN/Creatinine Ratio (7 - 25 %) 36.7 H Phosphorus (2.5 - 4.5 mg/dL) 3.6 Hematology CBC w Diff NO MAN DIFF REQ WBC (4.8 - 10.8 /CUMM) 11.9 H RBC (4.70 - 6.10 /CUMM) 5.02 Hgb (14.0 - 18.0 G/DL) 14.4 Hct (42 - 52 %) 43.8 MCV (80.0 - 94.0 FL) 87.2 MCH (27.0 - 31.0 PG) 28.7 MCHC (33.0 - 37.0 G/DL) 32.9 L RDW (11.5 - 14.5 %) 14.6 H Plt Count (130 - 400 /CUMM) 209 MPV (7.4 - 10.4 FL) 9.9 Gran % (42.2 - 75.2 %) 70.6 Lymphocytes % (20.5 - 51.1 %) 20.2 L Monocytes % (1.7 - 9.3 %) 8.0 Eosinophils % (0 - 5 %) 0.7 Basophils % (0.0 - 2.0 %) 0.5 Absolute Granulocytes (1.4 - 6.5 /CUMM) 8.4 H Absolute Lymphocytes (1.2 - 3.4 /CUMM) 2.4 Absolute Monocytes (0.10 - 0.60 /CUMM) 0.9 H Absolute Eosinophils (0.0 - 0.7 /CUMM) 0.1 Absolute Basophils (0.0 - 0.2 /CUMM) 0.1 A/P; 72 year old man w/a PMHx of severe COPD (2 L nocturnal), restrictive lung disesase, chronic respiratory failure, diaphragmatic paralysis (left side), Rt TKR s/p knee replacement 2016), hyperlipidemia, degenerative disease with severe central stenosis and cord compression status post surgical decompression surgery , admitted with altered mental state and hypercarbic respiratory failure. Currently patient improving. He did use BiPAP overnight. Pulmonology recommends watching him off of BiPAP tonight. Checking overnight pulse oximetry on room air and if need be then start the patient on oxygen and check the pulse oximetry done. Patient has been switched on oral prednisone and oral antibiotics. Continue TRC nebs. Continue other medications and please add inhalers as recommended by pulmonology. Patient on heparin subcutaneous for DVT prophylaxis. Possible discharge tomorrow pending overnight pulse oximetry.
[2018-03-14 21:47] VITALS: BP 120/86
[2018-03-15 06:34] VITALS: BP 124/84
[2018-03-15 07:40] LABS: ABSOLUTE BASOPHIL COUNT 0 /CUMM (0.0-0.2); ABSOLUTE EOSINOPHIL COUNT 0.1 /CUMM (0.0-0.7); ABSOLUTE GRANULOCYTE CT 7.1 /CUMM (1.4-6.5); ABSOLUTE LYMPH COUNT 2.1 /CUMM (1.2-3.4); ABSOLUTE MONOCYTE COUNT 0.9 /CUMM (0.10-0.60); BASOPHIL % 0.4 % (0.0-2.0); EOSINOPHIL % 0.7 % (0-5); GRANULOCYTE % 68.9 % (42.2-75.2); HEMATOCRIT 45.2 % (42-52); MEAN CORPUSCULAR HGB 28.8 PG (27.0-31.0); MEAN CORPUSCULAR VOLUME 87.2 FL (80.0-94.0); MEAN PLATELET VOLUME 9.7 FL (7.4-10.4); PLATELET COUNT 209 /CUMM (130-400); RBC DISTRIBUTION WIDTH 14.5 % (11.5-14.5); RED BLOOD CELL CT 5.19 /CUMM (4.70-6.10); WHITE BLOOD CELL COUNT 10.3 /CUMM (4.8-10.8)
--- NOTE | 2018-03-15 09:07 | PN- Pulmonary ---
Subjective HPI/Critical Care Issues: DOing better, off bipap Abg reviewed Pco2 is 47 less than 50 and does not qualify for NIV No sig wheezing Nocturnal oxymetry done and pending result Objective Current Medications: Current Medications Sig/Jackie Start time Last Medication Dose Route Stop Time Status Admin Albuterol Sulfate 3 ML Q4P PRN 03/11 2145 AC INH Albuterol Sulfate 3 ML Q4H PRN 03/11 1830 AC INH Budesonide/ 2 PUF BID 03/14 1200 AC 03/14 Formoterol Fumarate INH 2235 Cephalexin 500 MG Q6 03/13 1800 AC 03/15 PO 0601 Heparin Sodium 5,000 UNIT Q8 03/11 2200 AC 03/15 (Porcine) SC 0601 Patient Medication 1 ED ONE ONE 03/14 1945 DC 03/15 Teaching ED 03/14 1946 0702 Phosphate 250 MG PC AND AT BEDTIME 03/13 0900 AC 03/14 PO 2236 Prednisone 30 MG DAILY 03/15 0900 AC PO 03/23 0859 Prednisone 40 MG DAILY 03/14 0900 DC 03/14 PO 0809 Tiotropium [place] 1 PUF DAILY 03/14 1156 AC 03/14 INH 1332 Vital Signs & I&O Last 24 Hrs of Vitals and I&O: Vital Signs Date Time Temp Pulse Resp B/P B/P Pulse O2 O2 Flow FiO2 Mean Ox Delivery Rate 03/15 0634 97.6 81 20 124/84 97 03/15 0000 Nasal 2.0L Cannula 03/14 2147 97.9 94 19 120/86 97 Nasal 2.0L Cannula 03/14 1924 97 Nasal 2.0L Cannula 03/14 1600 Nasal 2.0L Cannula 03/14 1343 97.8 101 20 120/80 95 Nasal Cannula 03/14 0949 93 Nasal 2.0L Cannula Intake & Output 03/15 1600 03/15 0800 03/15 0000 Intake Total Output Total 200 Balance -200 Number 1 Bowel Movements Output, Urine 200 Impression/Plan Impression/Plan Impression/Plan: General Appearance Alert, Oriented X3, Cooperative, No Acute Distress, Skin No Rashes Skin Temp/Moisture Exam: Warm/Dry HEENT Atraumatic, PERRLA, EOMI, Mucous Membr. 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 with good recovery of function * Atelectasis bibasilar due to cervical dz causeing diapharm dysfunction and left diapharamatic paralysis * COPD fev1 of 1.49 litres, with mild copde * Cellulitis foot * History of smoking 30 or more pack years quit 2016 * Personal history of malignant neoplasm of prostate s/p surg needs follw up * Mixed restrictive and obstructive lung disease * recent colon polyp removal REC cont current rx Prednisone 30 for two days and taper Nebs prn Spiriva one puff daily Start symbicort bid Please let me know the results fo NOcturnal oxymery Needs an out pt sleep study Dc on kcl 20 meq daily Ok to dc Pt should avoid all sedative and hypnotics WIll follow as out pt
--- NOTE | 2018-03-15 09:10 | PN- Housestaff ---
Subjective Follow-up For: # Hypercarbic respiratory failure # History of COPD # Left Foot Cellulitis # mixed restrictive/obstructive lung disease # Left diaphramatic paralysis # History of prostate cancer # Hypernatremia - resolved # Hypophosphatemia - resolved Subjective: No acute events overnight. Patient requesting discharge. Review of Systems Constitutional: Reports: see HPI. Objective Last 24 Hrs of Vital Signs/I&O Vital Signs Date Time Temp Pulse Resp B/P B/P Pulse O2 O2 Flow FiO2 Mean Ox Delivery Rate 03/15 1030 94 Nasal 2.0L Cannula 03/15 0634 97.6 81 20 124/84 97 03/15 0000 Nasal 2.0L Cannula 03/14 2147 97.9 94 19 120/86 97 Nasal 2.0L Cannula 03/14 1924 97 Nasal 2.0L Cannula Intake & Output 03/15 1600 03/15 0800 03/15 0000 Intake Total 560 Output Total 200 Balance 560 -200 Intake, Oral 560 Number 1 1 Bowel Movements Output, Urine 200 Physical Exam General Appearance: Alert, Oriented X3, Cooperative Cardiovascular: tachy Lungs: decreased breath sounds Abdomen: Normal Bowel Sounds, Soft, No Tenderness Extremities: no lower extremity edema Current Medications: Current Medications Sig/Jackie Start time Last Medication Dose Route Stop Time Status Admin Albuterol Sulfate 3 ML Q4P PRN 03/11 2145 DCD INH Albuterol Sulfate 3 ML Q4H PRN 03/11 1830 DCD INH Budesonide/ 2 PUF BID 03/14 1200 DCD 03/15 Formoterol Fumarate INH 1022 Cephalexin 500 MG Q6 03/13 1800 DCD 03/15 PO 1239 Heparin Sodium 5,000 UNIT Q8 03/11 2200 DCD 03/15 (Porcine) SC 0601 Patient Medication 1 ED ONE ONE 03/14 1945 DC 03/15 Teaching ED 03/14 194 0702 Phosphate 250 MG PC AND AT BEDTIME 03/13 0900 DC 03/14 PO 2236 Prednisone 30 MG DAILY 03/15 0900 DCD 03/15 PO 03/23 0859 1020 Tiotropium [place] 1 PUF DAILY 03/14 1156 DCD 03/15 INH 1021 Last 24 Hrs of Lab/Shade Results Last 24 Hrs of Labs/Mics: Laboratory Tests 03/15/18 0800: Pulse Ox Probe Site RMD, ABG O2 Sat Calc/Koko 94.0, O2 Concentration % 2L, O2 Delivery Method NC 03/15/18 0600: Phosphorus 3.9, Magnesium 1.7, CBC w Diff NO MAN DIFF REQ, RBC 5.19, MCV 87.2, MCH 28.8, MCHC 33.0, RDW 14.5, MPV 9.7, Gran % 68.9, Lymphocytes % 20.8, Monocytes % 9.2, Eosinophils % 0.7, Basophils % 0.4, Absolute Granulocytes 7.1 H, Absolute Lymphocytes 2.1, Absolute Monocytes 0.9 H, Absolute Eosinophils 0.1 , Absolute Basophils 0 03/14/18 2150: pH 7.42, pCO2 47 H, pO2 88, HCO3 30 H, ABG O2 Sat (Measured) 96.0, P-50 (Temp Corrected) N, Carboxyhemoglobin 0.4 L, O2 Concentration % 2L, Temperature 97.9, O2 Delivery Method NC, Phlebotomy Draw Site RIGHT RADIAL Assessment/Plan Assessment: 72 year old man w/a PMHx of severe COPD (2 L nocturnal), chronic respiratory failure, diaphragmatic paralysis (left side), Rt TKR s/p knee replacement 2016) , hyperlipidemia, 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 #Hypercarbic respiratory failure 2/2 to COPD vs L sided diaphragmatic paralysis. ABGs at the time of admission showed a pH of 7.19 and with PCO2 of 109 and bicarbonate 41. She was started on BiPAP with 55% oxygen, repeat ABGs couple of hour liters showed improvement with a pH of 7.46 PCO2 41 and bicarbonate 28. -Discharge with Symbicort, Spiriva, prednisone taper -Patient did not qualify for CPAP after O2 pulse ox test last night. -Latest ABG: PH 7.2, PCO2 47, PO2 88, bicarbonate 30 -Phosphorus within normal limits -currently back to baseline 2L - Monitor off antibiotics #Left foot cellulitis; Patient's left foot is swollen and erythematous, per the swelling has always been there but erythema is new. Denies any trauma. Left lower extremity Doppler negative for DVT Foot x-ray negative for any soft tissue infection or fractures. -Patient remains afebrile. WBC 9.4-11.9 (could be from steroid use). -Discharge with Keflex 500 mg every 6 to complete a one-week course of total antibiotics #Hyperlipidemia - Continue Rosuvastatin. #Hypomagnesemia; - Continue to monitor and replete accordingly. #Hyperbilirubinemia - resolved 1.4 -> .9 - RUQ ultrasound negative for any acute pathology. #DVT Prophylaxis -S/C Lovenox #DNR/DNI Problem List: 1. Hypercapnic respiratory failure 2. Cellulitis Pain Ratin Pain Location: none Pain Goal: Pain 4 or less Pain Plan: pain pathway Tomorrow's Labs & Rationales: none
[2018-03-15] MEDS ORDERED: SPIRIVA18 MCG INH (11:02)
[2018-03-15] MEDS ORDERED: KLOR-CON20 ME1 PO (11:02)
[2018-03-15] MEDS ORDERED: PREDNISONE10 M2 PO ×4 (11:02→11:56)
[2018-03-15] MEDS ORDERED: SYMBICORT 16010.2 GM INH ×2 (11:02→11:16)
[2018-03-15] MEDS ORDERED: CEPHALEXIN500 M3 PO (11:02)
[2018-03-15] MEDS ORDERED: KEFLEX500 M1 PO (11:09)
--- NOTE | 2018-03-15 12:30 | PN- Att Addend ---
Attending Addendum Attending Brief Note Patient seen and examined, wanted to know about the results of his overnight pulse oximetry. He currently denies any shortness of breath. Overnight pulse oximetry did mention that he dropped his oxygen but his PCO2 was less than 50. As discussed with the teletray operator Dr. Levy, patient does not meet the criteria for home CPAP. Patient has home oxygen will be discharged home with his home oxygen. He will also be going home on prednisone taper, by mouth Keflex. Cannot also recommends keeping the patient on some potassium. He will be given prescription for Symbicort and Spiriva as recommended by teletray operator. Patient to follow-up with his primary care doctor and Dr. Levy as an outpatient.
== END 2018-03-15 13:17 | disposition home health service (06) | DRG 189 ==
LOC: ERH 11:17 → CRI 16:53 → 2NB 16:53 → ERHI 16:53 → ENRESERV 17:55 → ENTRNSPT 19:33 → EDTRNSPTSTS 19:45 → EDTRNSPT 19:45 → CRI 19:54 → CMPTRNSPT 20:13 → CRI 03-12 09:08 → ENTRNSPT 03-13 11:24 → EDTRNSPT 03-13 11:55 → EDTRNSPTSTS 03-13 11:55 → CMPTRNSPT 03-13 12:22 → 2NB 03-13 12:23 → ENPENDDIS 03-15 11:36 → ENTRNSPT 03-15 12:46 → EDTRNSPTSTS 03-15 13:11 → EDTRNSPT 03-15 13:11 → 2NB 03-15 13:17 → CMPTRNSPT 03-15 13:27
PROVIDERS: Internal Medicine; Internal Medicine Endocrinology, Diabetes & Metabolism; Physician Assistant Medical
DX: J96.21 Acute and chronic respiratory failure with hypoxia (principal); E87.3 Alkalosis; E87.0 Hyperosmolality and hypernatremia; L03.116 Cellulitis of left lower limb; E83.39 Other disorders of phosphorus metabolism; J44.1 Chronic obstructive pulmonary disease with (acute) exacerbation; J96.22 Acute and chronic respiratory failure with hypercapnia; Z99.81 Dependence on supplemental oxygen; J98.6 Disorders of diaphragm; Z87.891 Personal history of nicotine dependence; E86.0 Dehydration; R41.82 Altered mental status, unspecified; T43.215A Adverse effect of selective serotonin and norepinephrine reuptake inhibitors, initial encounter; Y92.009 Unspecified place in unspecified non-institutional (private) residence as the place of occurrence of the external cause; Z96.651 Presence of right artificial knee joint; Z88.5 Allergy status to narcotic agent; E78.5 Hyperlipidemia, unspecified; Z85.46 Personal history of malignant neoplasm of prostate; Z85.828 Personal history of other malignant neoplasm of skin; Z66 Do not resuscitate
CPT/HCPCS: 2NBP; 84105; CCU; 36415; 36592; 71045; 71046; 73630-LT; 80307; 81001; 82436; 93005; 93010; 96374; 96375; 97116-GO; 97161-GP; 97530-GO; 99291; J1644; J2310; J2920; J2930; J3490; J7042; J7512

== ENCOUNTER 2018-03-19 13:58 | Inpatient (IN) | payer OTHER, MEDICARE ==
[~2018-03-19] VITALS: Ht 167.6 cm; Wt 70.3 kg
[~2018-03-19 13:58] MED LIST changes: +CEPHALEXIN500 M3 PO; +KEFLEX500 M1 PO; +KLOR-CON20 ME1 PO; +SPIRIVA18 MCG INH; +SYMBICORT 16010.2 GM INH; +VITAMIN B-121000 MC3 PO; +VITAMIN D31000 UNI2 PO; +[UNRECOGNIZED DRUG - CODE] PO
--- NOTE | 2018-03-19 14:18 | ED AMS/SEIZURE/WEAK/DIZZY ---
History of Present Illness General Chief Complaint: General Adult Stated Complaint: SOB,LETHARGY Source: patient, family, old records Exam Limitations: no limitations Allergies Coded Allergies: morphine (Severe, VOMITING 03/08/18) lactose (GI UPSET 07/02/17) Reconcile Medications Albuterol Sulfate (Proair Hfa) 90 MCG HFA.AER.AD 2 PUF INH Q4-6 PRN PRN copd (Reported) Budesonide/Formoterol Fumarate (Symbicort 160-4.5 Mcg Inhaler) 160 MCG-4.5 MCG/ ACTUATION HFA.AER.AD 2 PUF INH BID COPD Cephalexin (Keflex) 500 MG CAPSULE 1 CAP PO Q6 CELLULITIS Cholecalciferol (Vitamin D3) 1,000 UNIT TABLET 1 TAB PO DAILY SUPPLEMENT ( Reported) Cyanocobalamin (Vitamin B-12) 1,000 MCG TABLET 1 TAB PO DAILY MENTAL HEATLH ( Reported) Docusate Sodium 100 MG CAPSULE 100 MG PO BID PRN CONSTIPATION STOOL SOFTENER, AVAILABLE OVER THE COUNTER Glycopyrrolate/Formoterol Fum (Bevespi Aerosphere Inhaler) 9 MCG-4.8 MCG HFA.AER.AD 2 PUFF INH BID BREATHING PROBLEMS (Reported) Multivitamin (One Daily Multivitamin) 1 EACH TABLET 1 TAB PO DAILY VITAMIN SUPPORT (Reported) [place]-3 Fatty Acids/Fish Oil (Fish Oil 1,000 MG Capsule) 340 MG-1,000 MG CAPSULE 1 CAP PO DAILY SUPPLEMENT (Reported) Potassium Chloride (Klor-Con) 20 MEQ PACKET 1 PAC PO DAILY POTASSIUM Prednisone 10 MG TABLET 1 TAB PO DAILY SHORTNESS OF BREATH DATE TAB 03/16 3 03/17- 2 03/20- 1 Rosuvastatin Calcium (Crestor) 10 MG TABLET 1 TAB PO DAILY CHOLESTEROL ( Reported) Ubidecarenone (Coenzyme Q-10) 200 MG CAPSULE 1 TAB PO DAILY HEART HEALTH ( Reported) Triage Note: PT TO ED WITH FOR WEAKNESS, SOB, LETHARGY. PT WAS ADMITTED TO ICU ON 03/11, WENT HOME ON 03/15. PHYSICAL THERAPY WAS AT PT'S HOUSE AND HIS O2 WAS LOW AND PT WAS FALLING ASLEEP WHILE TALKING. O2 SATS ON 2L, 91%. Triage Nurses Notes Reviewed? yes Onset: Abrupt Duration: day(s): (1), constant Timing: recent history Injury Environment: home Severity: moderate, severe Severity Numbers: 10 No Modifying Factors: none Associated Symptoms: DENIES HPI: 72 year old man w/a PMHx of severe COPD (2 L nocturnal), chronic respiratory failure, diaphragmatic paralysis (left side), Rt TKR s/p knee replacement 2016) , hyperlipidemia, degenerative disease with severe central stenosis and cord compression status post surgical decompression presents to the ER for evaluation with his . The patient was discharged from this hospital 4 days ago status post hypercarbic respiratory failure he is currently on prednisone. His states that he did not call 5 for BiPAP at home. He is been using 2 L of oxygen sporadically as needed. Today when the physical therapist came to evaluate him the patient was dozing off midsentence and advised that they come to the ER. His states he's had similar episodes before which time his carbon dioxide was elevated. He denies any chest pain cough fever chills leg swelling. He does not have a nebulizer machine at home is been using his inhalers as directed. (Torrey MICHAEL,Behzad) Vital Signs & Intake/Output Vital Signs & Intake/Output Vital Signs Date Time Temp Pulse Resp B/P B/P Pulse O2 O2 Flow FiO2 Mean Ox Delivery Rate 03/19 1738 97.0 73 18 139/81 95 BIPAP 30% 03/19 1636 87 18 162/78 97 BIPAP 03/19 1602 96 03/19 1447 78 99 03/19 1446 94 Nasal 2.0L Cannula 03/19 1405 96.0 96 20 182/88 91 Nasal 2.0L Cannula (Angelia PAYTON,Boom Wilcox) Past History Travel History Traveled to [place] past 21 day No Medical History Any Pertinent Medical History? see below for history Neurological: NONE EENT: NONE Cardiovascular: HYPERCHOLESTERMIA Respiratory: COPD, 2L AT BASE DIAPHRAGMATIC PARALYSIS ON L SIDE Gastrointestinal: NONE Hepatic: NONE Renal: NONE Musculoskeletal: degen joint disease, L SIDE WEAK Psychiatric: NONE Endocrine: NONE Blood Disorders: NONE Cancer(s): prostate cancer, SKIN CA INVESTIGATIVE WRITER/Reproductive: NONE History of MRSA: No History of VRE: No History of CDIFF: No Influenza Vaccine: 09/27/17 Tetanus Vaccine: 12/01/17 Surgical History Surgical History: TONSILLECTOMY PROSTATECTOMY ULNAR NERVE REPAIR SKIN CA EXCISION TKR RIGHT LAMINECTOMY Psychosocial History Who do you live with Spouse What is your primary language Swedish Tobacco Use: Quit >30 days ago ETOH Use: denies use Illicit Drug Use: denies illicit drug use Family History Hx Contributory? No (Behzad Chatman) Review of Systems Review of Systems Constitutional: Reports: see HPI. Comments Review of systems: See HPI, All other systems negative. Constitutional, no chills no fever, no malaise no weight loss HEENT: no sore throat no congestion, no ear pain Cardiovascular: No chest pain , no palpitation Skin: no rashes, no change in skin Respiratory: No dyspnea no cough no sputum no hemoptysis GI: No nausea no vomiting, no diarrhea, no bloating/constipation : No dysuria No hematuria, no frequency Muscle skeletal: No joint pain, no back pain, no neck pain, Neurologic: , no headache Psych: No stress no depression,. Heme/endocrine: No bruising no bleeding Immunology: No lymphadenopathy (Behzad Chatman) Physical Exam Physical Exam General Appearance: well developed/nourished, awake Comments: Well-developed well-nourished person in no acute distress HEENT: Normal EENT exam; PERRL, EOMI, no nystagmus. HEAD is atraumatic. moist mucous membranes. Neck: Supple, y, normal range of motion Back: Full range of motion Cardiovascular: Regular rate and rhythms no murmurs rubs or gallops, normal JVP Respiratory: Chest nontender.There were no bony deformities, no asymmetry. No respiratory distress. Patient speaking in full complete sentences diminished breath sounds bilaterally Abdomen: Soft, nontender nondistended, no appreciable organomegaly. Normal bowel sounds. No rebound/guarding, Extremity: No edema, full range of motion of extremities Neuro: Alert oriented x3, motor sensory normal, There were no obvious focal neurologic abnormalities. Skin: No appreciable rash on exposed skin, skin is warm and dry. Psych: Mood and affect is normal, memory and judgment is normal. Core Measures ACS in differential dx? No CVA/TIA Diagnosis No Sepsis Present: No Sepsis Focused Exam Completed? No (Behzad Chatman) Progress Differential Diagnosis: arrythmia, PNA, CHF, RESP FAILURE, SEPSIS, ELECTROLYTE ABNORMALITY Diagnostic Imaging: Viewed by Me: Radiology Read. Discussed w/RAD: Radiology Read. Radiology Impression: PATIENT: MCKENNA MILLER JR PRESENT AGE: 72 PATIENT ACCOUNT NO: [id number] : 46 LOCATION: [facility] ORDERING PHYSICIAN: Behzad MICHAEL SERVICE DATE: 03/19/18 EXAM TYPE: RAD - XRY-PORTABLE CHEST XRAY EXAMINATION: XR PORTABLE CHEST CLINICAL INFORMATION: Dyspnea. Evaluate for congestive heart failure. COMPARISON: Chest radiograph 03/08/2018. TECHNIQUE: Portable frontal view of the chest was obtained. FINDINGS: Lung volumes are low. There are coarse linear markings within the left lung base that remain essentially unchanged when compared to the recent prior radiograph from 03/08/2018. These findings may represent a manifestation of subsegmental atelectasis versus or scar. No overt consolidative disease. No pneumothorax. The cardiac silhouette and upper mediastinal contours are normal. No acute osseous finding. IMPRESSION: Low lung volumes and subsegmental atelectasis or scar involving the left lower lobe. No overt airspace disease. DICTATED BY: Refugio Donovan MD DATE/TIME DICTATED:03/19/181510 EXTENSION SERVICE SPECIALIST:MARVIN DATE/TIME TRANSCRIBED:03/19/181510 CONFIDENTIAL, DO NOT COPY WITHOUT APPROPRIATE AUTHORIZATION. <Electronically signed in Other Vendor System> SIGNED BY: Refugio Donovan MD 03/19/18 1516 Initial ED EKG: STACH 100, NO ACUTE ST SEG CHANGES, NORMAL AXIS (Torrey MICHAEL,Behzad) Plan of Care: Orders Procedure Date/time Status Admit to inpatient 03/19 1901 Active URINE DRUG SCREEN FOR ER ONLY 03/19 1628 Active URINALYSIS 03/19 1628 Complete BIPAP 03/19 1447 Active ARTERIAL BLOOD GAS (GEN) 03/19 1417 Complete TROPONIN LEVEL 03/19 1417 Complete LACTIC ACID 03/19 1417 Complete COMPREHENSIVE METABOLIC PANEL 03/19 1417 Complete CBC WITHOUT DIFFERENTIAL 03/19 1417 Complete B-TYPE NATRIURETIC PEP (BNP) 03/19 1417 Complete EKG 03/19 1400 Active Laboratory Tests 03/19/18 1851: Urine Opiates Screen Pending, Methadone Screen Pending, Barbiturate Screen Pending, Ur Phencyclidine Scrn Pending, Amphetamines Screen Pending, U Benzodiazepines Scrn Pending, Urine Cocaine Screen Pending, Urine Cannabis Screen Pending, Urine Color YEL, Urine Clarity CLEAR, Urine pH 7.0, Ur Specific [place] 1.015, Urine Protein NEG, Urine Ketones NEG, Urine Nitrite NEG, Urine Bilirubin NEG, Urine Urobilinogen 0.2, Ur Leukocyte Esterase NEG, Ur Microscopic EXAM NOT REQUIRED, Urine Hemoglobin NEG, Urine Glucose NEG 03/19/18 1717: Lactic Acid Cancelled 03/19/18 1437: Anion Gap 9, Estimated GFR > 60, BUN/Creatinine Ratio 22.5, Glucose 101 H, Lactic Acid 1.4, Calcium 9.3, Total Bilirubin 0.5, AST 73 H, ALT 75 H, Alkaline Phosphatase 50, Troponin I < 0.01, Uyg-V-Zjujjgstjrm Pept 23.8, Total Protein 6.5, Albumin 3.9, Globulin 2.6, Albumin/Globulin Ratio 1.5, CBC w Diff MAN DIFF ORDERED, RBC 5.30, MCV 89.4, MCH 28.5, MCHC 31.9 L, RDW 15.6 H, MPV 8.9, Gran % 90.9 H, Lymphocytes % 4.9 L, Monocytes % 4.0, Eosinophils % 0.1, Basophils % 0.1, Absolute Granulocytes 11.6 H, Absolute Lymphocytes 0.6 L, Absolute Monocytes 0.5, Absolute Eosinophils 0, Absolute Basophils 0, Platelet Estimate ADEQUATE, Normocytic RBCs VERIFIED, Normochromic RBCs VERIFIED 03/19/18 1430: pH 7.32 L, pCO2 74 *H, pO2 78 L, HCO3 38 H, ABG O2 Sat (Measured) 95.0 L, Carboxyhemoglobin 1.0 L, O2 Concentration % 2L, O2 Delivery Method NC, Phlebotomy Draw Site RIGHT RADIAL She is alert awake and oriented 3 on my evaluation. Labs ordered old records reviewed case discussed with Dr. Galan agrees with plan ABG ordered Patient placed on BiPAP discussed with the family plan of care 0 discussed with the family all his lab results x-ray findings need for admission which they're in agreement with Case discussed with Dr. Levy who advised to bring the patient in under his service he will come and he will be here at approximately 1730 to evaluate the patient at which time it'll be decided whether the patient requires ICU versus GEN med 1840 Dr. Levy in Department to evaluate patient advised that he believes the patient is suffering from ALS and should be placed in the ICU as a full admission. Case discussed with Dr. Galan (Behzad Chatman) (Galan Boom PAYTON) Departure Departure Time of Disposition: 1707 Disposition: STILL A PATIENT Condition: Stable Clinical Impression Primary Impression: Hypercapnic respiratory failure Referrals: Gregory Camacho MD (PCP/Family) Departure Forms: Customer Survey General Discharge Information Admission Note Spoke With: Mildred PAYTON,Topher Hernandez Documentation of Exam: Documentation of any treatments & extenuating circumstances including Concerns Regarding Discharge (functional status, medication knowledge or non-compliance, living conditions, etc.) that warrant an admission rather than observation: respiratory treatments BiPAP trend labs pulmonology consult, ALS WORKUP Respiratory treatments when necessary premature discharge would BE medically harmful (Behzad Chatman) PA/CCNA Co-Sign Statement Statement: ED Attending supervision documentation- [X] I saw and evaluated the patient. I have also reviewed all the pertinent lab results and diagnostic results. I agree with the findings and the plan of care as documented in the PA's/CCNA's documentation. Patient presents for worsening lethargy and shortness of breath. Physical examination on BiPAP reveals good bilateral air entry and no wheezes rales or rhonchi. [] I have reviewed the ED Record and agree with the PA's/CCNA's documentation. [] Additions or exceptions (if any) to the PAs/CCNA's note and plan are summarized below: [] (Angelia PAYTON,Boom Wilcox) Critical Care Note Critical Care Note Critical Care Time: 30-74 min (Behzad Chatman)
[2018-03-19 14:46] LABS: ABSOLUTE BASOPHIL COUNT 0 /CUMM (0.0-0.2); ABSOLUTE EOSINOPHIL COUNT 0 /CUMM (0.0-0.7); ABSOLUTE GRANULOCYTE CT 11.6 /CUMM (1.4-6.5); ABSOLUTE LYMPH COUNT 0.6 /CUMM (1.2-3.4); ABSOLUTE MONOCYTE COUNT 0.5 /CUMM (0.10-0.60); BASOPHIL % 0.1 % (0.0-2.0); EOSINOPHIL % 0.1 % (0-5); GRANULOCYTE % 90.9 % (42.2-75.2); HEMATOCRIT 47.4 % (42-52); MEAN CORPUSCULAR HGB 28.5 PG (27.0-31.0); MEAN CORPUSCULAR HGB CONC 31.9 G/DL (33.0-37.0); MEAN CORPUSCULAR VOLUME 89.4 FL (80.0-94.0); MEAN PLATELET VOLUME 8.9 FL (7.4-10.4); PLATELET COUNT 288 /CUMM (130-400); RBC DISTRIBUTION WIDTH 15.6 % (11.5-14.5); WHITE BLOOD CELL COUNT 12.8 /CUMM (4.8-10.8)
[2018-03-19] MEDS ORDERED: BEVESPI AEROS10.7 GM INH (15:14)
[2018-03-19] MEDS ORDERED: ONE DAILY MULT1 EAC2 PO (15:15)
[2018-03-19] MEDS ORDERED: FISH OIL 1,0001 EACH PO (15:16)
--- NOTE | 2018-03-19 15:16 | RADIOLOGY REPORT ---
EXAMINATION: XR PORTABLE CHEST CLINICAL INFORMATION: Dyspnea. Evaluate for congestive heart failure. COMPARISON: Chest radiograph 03/08/2018. TECHNIQUE: Portable frontal view of the chest was obtained. FINDINGS: Lung volumes are low. There are coarse linear markings within the left lung base that remain essentially unchanged when compared to the recent prior radiograph from 03/08/2018. These findings may represent a manifestation of subsegmental atelectasis versus or scar. No overt consolidative disease. No pneumothorax. The cardiac silhouette and upper mediastinal contours are normal. No acute osseous finding. IMPRESSION: Low lung volumes and subsegmental atelectasis or scar involving the left lower lobe. No overt airspace disease.
--- NOTE | 2018-03-19 19:49 | History & Physical ---
Williammaria alejandraElier govea [birth year]: General Information and HPI MD Statement: I have seen and personally examined MCKENNA MILLER René DURHAM and documented this H&P. 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 Patient was recently discharged from [facility] on 03/14/2018 after being treated for acute hypercarbic respiratory failure. He was also treated for left foot cellulitis with 7 day course of antibiotics. Deep vein thrombosis was ruled out. According to the patient and who is at bedside patient has been doing well since discharge from [facility]. However he was very short of breath this morning, became lethargic and confused eventually. He was noted to have low oxygen saturation 90% on 2 L. He was very lethargic, falling asleep during the conversation. Visiting nurse advised the family to bring him to the emergency room for evaluation of hypercarbic respiratory failure, given his history of carbon dioxide retention and chronic respiratory failure. ABG in the emergency room revealed pH 7.32, carbon dioxide 74, bicarbonate 38, placed on BiPAP for few hours. At the time of my exam patient was off from BiPAP. He is alert awake and oriented 3. Denied any fever, chills, chest pain , palpitations, productive cough, nausea, vomiting, abdominal pain, change in bladder or bowel habits. He reports minimal shortness of breath, requiring 4 L oxygen supplementation to maintain saturations above 92. He is able to speak in complete sentences. off note patient uses 2 pillows to sleep. In August 2017 he was evaluated for left diaphragm paralysis. Patient underwent sniff test which showed that his left diaphragm remains elevated it is positioned approximately 3-4 cm above the level of the right diaphragm. The elevated diaphragm produces mild compressive atelectasis at the left base. There is normal inferior excursion of the right diaphragm during inspiration. Findings are consistent with left diaphragm paralysis. He also underwent MRI cervical spine and head in July 2017 for evaluation of flaccid atrophy of left upper extremity and quadriparesis. He has advanced cervical spondylosis at C5-C6,, compression of cervical spinal cord multiple degenerative changes, severe central canal stenosis-status post extensive cervical spine surgery in sep 2017 Allergies/Medications Allergies: Coded Allergies: morphine (Severe, VOMITING 03/08/18) lactose (GI UPSET 07/02/17) Home Med list Albuterol Sulfate (Proair Hfa) 90 MCG HFA.AER.AD 2 PUF INH Q4-6 PRN PRN copd (Reported) Budesonide/Formoterol Fumarate (Symbicort 160-4.5 Mcg Inhaler) 160 MCG-4.5 MCG/ ACTUATION HFA.AER.AD 2 PUF INH BID COPD Cephalexin (Keflex) 500 MG CAPSULE 1 CAP PO Q6 CELLULITIS Cholecalciferol (Vitamin D3) 1,000 UNIT TABLET 1 TAB PO DAILY SUPPLEMENT ( Reported) Cyanocobalamin (Vitamin B-12) 1,000 MCG TABLET 1 TAB PO DAILY MENTAL HEATLH ( Reported) Docusate Sodium 100 MG CAPSULE 100 MG PO BID PRN CONSTIPATION STOOL SOFTENER, AVAILABLE OVER THE COUNTER Glycopyrrolate/Formoterol Fum (Bevespi Aerosphere Inhaler) 9 MCG-4.8 MCG HFA.AER.AD 2 PUFF INH BID BREATHING PROBLEMS (Reported) Multivitamin (One Daily Multivitamin) 1 EACH TABLET 1 TAB PO DAILY VITAMIN SUPPORT (Reported) [place]-3 Fatty Acids/Fish Oil (Fish Oil 1,000 MG Capsule) 340 MG-1,000 MG CAPSULE 1 CAP PO DAILY SUPPLEMENT (Reported) Potassium Chloride (Klor-Con) 20 MEQ PACKET 1 PAC PO DAILY POTASSIUM Prednisone 10 MG TABLET 1 TAB PO DAILY SHORTNESS OF BREATH DATE TAB 03/16 3 03/17- 2 03/20- 1 Rosuvastatin Calcium (Crestor) 10 MG TABLET 1 TAB PO DAILY CHOLESTEROL ( Reported) Ubidecarenone (Coenzyme Q-10) 200 MG CAPSULE 1 TAB PO DAILY HEART HEALTH ( Reported) Compliance With Home Meds: GOOD Past History Travel History Traveled to [place] past 21 day No Medical History Neurological: NONE EENT: NONE Cardiovascular: HYPERCHOLESTERMIA Respiratory: COPD, 2L AT BASE DIAPHRAGMATIC PARALYSIS ON L SIDE Gastrointestinal: NONE Hepatic: NONE Renal: NONE Musculoskeletal: degen joint disease, L SIDE WEAK Psychiatric: NONE Endocrine: NONE Blood Disorders: NONE Cancer(s): prostate cancer, SKIN CA 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 Denies: diaphoresis, fever, malaise, unexplained weight loss. EENTM: Denies: blurred vision, double vision. Cardiovascular: Denies: chest pain, orthopena, palpitations, peripheral edema, syncope. Respiratory: Reports: short of breath. Denies: cough, hemoptysis, orthopnea, sputum production, stridor, wheezing. GI: Denies: abdominal pain, bloating, constipation, diarrhea. Genitourinary: Denies: discharge, dysuria, frequency. Musculoskeletal: Denies: back pain, gout, joint pain. Skin: Denies: dryness, erythema. Neurological/Psychological: Denies: headache, numbness, pre-existing deficit, tingling, tremors. Exam & Diagnostic Data Last 24 Hrs of Vital Signs/I&O Vital Signs Date Time Temp Pulse Resp B/P B/P Pulse O2 O2 Flow FiO2 Mean Ox Delivery Rate 03/19 2055 74 18 123/66 95 Nasal 3.0L Cannula 03/19 1738 97.0 73 18 139/81 95 BIPAP 30% 03/19 1636 87 18 162/78 97 BIPAP 03/19 1602 96 03/19 1447 78 99 03/19 1446 94 Nasal 2.0L Cannula 03/19 1405 96.0 96 20 182/88 91 Nasal 2.0L Cannula Intake & Output 03/19 1600 03/19 0800 03/19 0000 Intake Total Output Total 200 Balance -200 Output, Urine 200 Patient 71.214 kg Weight Weight Estimated Measurement Method Physical Exam General Appearance Alert, Oriented X3, Cooperative, No Acute Distress Skin No Rashes, No Breakdown Skin Temp/Moisture Exam: Warm/Dry Sepsis Skin Exam (color): Normal for Ethnicity HEENT Atraumatic, PERRLA, EOMI, Mucous Membr. moist/pink Neck Supple, No JVD Lymphatic Axillary nl, Cervical nl Cardiovascular Regular Rate, Normal S1, Normal S2, No Murmurs Lungs Normal Air Movement, on bipap for few hours s/p off from bipap, decreased air entry left lung Abdomen Normal Bowel Sounds, Soft, No Tenderness Neurological Normal Speech, Strength at 5/5 X4 Ext, Normal Tone, Sensation Intact, Cranial Nerves 3-12 NL, Reflexes 2+, left arm fasciculations Extremities No Clubbing, No Cyanosis, No Edema Vascular Normal Pulses, Pulses Symmetrical Sepsis Peripheral Pulse Location: Dorsalis Pedis Sepsis Peripheral Pulse Exam: Normal Sepsis Cap Refill Exam: <2 Sec Last 24 Hrs of Labs/Shade: Laboratory Tests 03/19/18 1851: Urine Opiates Screen < 100, Methadone Screen < 40, Barbiturate Screen < 60, Ur Phencyclidine Scrn < 6.00, Amphetamines Screen < 100, U Benzodiazepines Scrn < 85, Urine Cocaine Screen < 50, Urine Cannabis Screen < 5.00, Urine Color YEL, Urine Clarity CLEAR, Urine pH 7.0, Ur Specific [place] 1.015, Urine Protein NEG, Urine Ketones NEG, Urine Nitrite NEG, Urine Bilirubin NEG, Urine Urobilinogen 0.2, Ur Leukocyte Esterase NEG, Ur Microscopic EXAM NOT REQUIRED, Urine Hemoglobin NEG, Urine Glucose NEG 03/19/18 1717: Lactic Acid Cancelled 03/19/18 1437: Anion Gap 9, Estimated GFR > 60, BUN/Creatinine Ratio 22.5, Glucose 101 H, Lactic Acid 1.4, Calcium 9.3, Phosphorus 4.5, Magnesium 1.9, Total Bilirubin 0.5 , AST 73 H, ALT 75 H, Alkaline Phosphatase 50, Troponin I < 0.01, Pro-B- Natriuretic Pept 23.8, Total Protein 6.5, Albumin 3.9, Globulin 2.6, Albumin/ Globulin Ratio 1.5, CBC w Diff MAN DIFF ORDERED, RBC 5.30, MCV 89.4, MCH 28.5, MCHC 31.9 L, RDW 15.6 H, MPV 8.9, Gran % 90.9 H, Lymphocytes % 4.9 L, Monocytes % 4.0, Eosinophils % 0.1, Basophils % 0.1, Absolute Granulocytes 11.6 H, Absolute Lymphocytes 0.6 L, Absolute Monocytes 0.5, Absolute Eosinophils 0, Absolute Basophils 0, Platelet Estimate ADEQUATE, Normocytic RBCs VERIFIED, Normochromic RBCs VERIFIED 03/19/18 1430: pH 7.32 L, pCO2 74 *H, pO2 78 L, HCO3 38 H, ABG O2 Sat (Measured) 95.0 L, Carboxyhemoglobin 1.0 L, O2 Concentration % 2L, O2 Delivery Method NC, Phlebotomy Draw Site RIGHT RADIAL Assessment/Plan Assessment: This is a 72-year-old male with past medical history significant for COPD on 2 L nocturnal oxygen, chronic constipation, hyperlipidemia, chronic respiratory failure, left-sided diaphramatic paralysis, total right knee replacement 2016, severe degenerative joint disease status post extensive cervical spine surgery Sep 2017, former smoker, 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 Patient was recently discharged from [facility] on 03/14/2018 after being treated for acute hypercarbic respiratory failure. He was also treated for left foot cellulitis with 7 day course of antibiotics. Deep vein thrombosis was ruled out. Vitals at the time of presentation afebrile, heart rate 73, respiratory rate 18, blood pressure 135/80, saturating at 95 on 4 L oxygen supplementation. He was on BiPAP for few hours in the emergency room. Pertinent labs Leukocytosis 12.8, hemoglobin 15, hematocrit 47, platelets 288 ABG 7.32, 74, 38, 95 Sodium 147, potassium 4.4, BUN 9 and creatinine 0.4 Lactic acid 1.4 LFTs 0.5, 73, 75 troponin negative EKG showed sinus tachycardia, 100, left anterior fascicular block, no acute ST-T wave changes Chest x-ray showed Low lung volumes and subsegmental atelectasis or scar involving the left lower lobe. No overt airspace disease. Acute on chronic hypercarbic respiratory failure Patient presented with worsening shortness of breath, lethargy, confusion. ABGs in the emergency room showed pH 7.32, carbon dioxide 74, bicarbonate 38. Given his acute hypercarbic respiratory failure he was placed on BiPAP for a few hours after which he was improved and was transitioned to nasal cannula. Chest x-ray showed Low lung volumes and subsegmental atelectasis or scar involving the left lower lobe. No overt airspace disease. * Acute on chronic progressive hypercarbic respiratory failure, recently admitted for similar complaint. Looks like multifactorial etiology. Patient has history of left-sided diaphragmatic past which is contributing to respiratory failure and hypoventilation. Also he was extensively worked up as an outpatient by his neurologist for motoneuron disease/ALS leading to respiratory failure. Also patient has history of COPD however not at end-stage COPD to explain worsening hypercarbia. Recent PET scan showed bilateral lower lobe pulmonary infiltrates suggestive of dynamic atelectasis from left-sided diaphragmatic patency. * Admit to ICU for acute hypercarbic respiratory failure * Monitor vitals every shift * Currently off from BiPAP * Provide oxygen supplementation to maintain saturation above 92 * When necessary BiPAP * TRC nebs * ABG as needed * Will complete his prednisone taper for 3 more days- 10 mg daily * We will get MRI head and cervical spine to look for any SEAM PRESS OPERATOR pathology leading to hypercarbic respiratory failure * Will get sniff test diaphragmatic fluoroscopy to look for right-sided diaphragmatic palsy * Avoid sedative medications Left-sided diaphragmatic palsy In August 2017 he was evaluated for left diaphragm paralysis. Patient underwent sniff test which showed that his left diaphragm remains elevated it is positioned approximately 3-4 cm above the level of the right diaphragm. The elevated diaphragm produces mild compressive atelectasis at the left base. There is normal inferior excursion of the right diaphragm during inspiration. Findings are consistent with left diaphragm paralysis. * Given his chronic respiratory failure, acute on chronic hypercarbic respiratory failure leading to multiple admissions - will get sniff test to look for bilateral diaphragmatic paralysis * F/U sniff test diaphragmatic fluoroscopy History of cervical spondylosis status post surgery He had MRI cervical spine and head in July 2017 for evaluation of flaccid atrophy of left upper extremity and quadriparesis. He has advanced cervical spondylosis at C5-C6,, compression of cervical spinal cord multiple degenerative changes, severe central canal stenosis-status post extensive cervical spine surgery in sep 2017 COPD On nocturnal oxygen 2 L COPD FEV1 1.49 L, not in COPD exacerbation Continue TRC nebs Complete prednisone taper which was started during last admission Left foot cellulitis Patient was started on Keflex 500 every 6hrs for left foot cellulitis during his last admission- 7 day course. Will complete his antibiotic course by 2017. Constipation Continue senna as required for constipation Hyperlipidemia Continue Lipitor 10 daily Leukocytosis WBC 12.8 most likely from recent steroid use DVT prophylaxis alps and Lovenox subcutaneous Regular diet Full code Pain pathway Tylenol was ordered As Ranked By This Provider Problem List: 1. Hypercapnic respiratory failure Core Measures/Misc (08/12) Acute Coronary Syndrome ACS Diagnosis: No Congestive Heart Failure Congestive Heart Failure Diagnosis No Cerebrovascular Accident CVA/TIA Diagnosis: No VTE (View Protocol) VTE Risk Factors No risk factors No Mechanical VTE Prophylaxis d/t N/A MechProphylax Ordered No VTE Pharm Prophylaxis d/t NA PharmProphylax ordered Sepsis (View protocol) Sepsis Present: No Topher Levy MD 03/[birth year]/181957: Attending MD Review Statement Attending Statement Attending MD Statement: examined this patient, discuss w/resident/PA/VP, agreed w/resident/PA/VP, discussed with family, reviewed EMR data (avail), discussed with nursing, discussed with case mgmt, reviewed images, amended to note Attending Assessment/Plan: Seen and examined independently General Appearance on bipap and in resp failure Skin No Rashes Skin Temp/Moisture Exam: Warm/Dry HEENT Atraumatic, PERRLA, EOMI, Mucous Membr. moist/pink Neck Supple Lymphatic No cervical lymphadenopathy Cardiovascular Regular Rate, Normal S1, Normal S2, No Murmurs Lungs Clear to Auscultation, Decrease air entery of left lung Abdomen Normal Bowel Sounds, Soft, No Tenderness Neurological Normal Speech, Strength at 5/5 X4 Ext, Normal Tone, Sensation Intact, Cranial Nerves 3-12 NL, Hyperreflexia x4 clonus fasculation Extremities No Clubbing, No Cyanosis, No Edema, Normal Pulses multiple fasciculation IMPRESSION PT with recent extensive cervical spine surg for severe djd, previous left sided diapharam paralysis with history of sig smoking, COPD with mixed obstructive restrictive lung disease, Fev1 not too low to have hypercarbia with recent autonomic dysfunction now with * Progressive hypercarbic resp failure - multifactorial - Rule out motor neuron disease vs Rule out bilateral diaphramatic paralysis His copd is not severe enough to explain worsening hypercarbia(recent ct and pet scan showed bilateral lower lobe pulm contrast enhancing infiltrates highly sugg of dynamic atelectasis from his diaphramatic paralysis especially in the left side). (PET nil acute) * Cervical disc disease / s/p surg as he had quadreperesis before with good recovery of function * Atelectasis bibasilar due to cervical dz causeing diapharm dysfunction and left diapharamatic paralysis, rule out rt sided diaphramatic paralysis * COPD fev1 of 1.49 litres, with no copd exacerbatin * REcent Cellulitis foot on antibiotics * History of smoking 30 or more pack years quit 2015 * Personal history of malignant neoplasm of prostate s/p surg needs follw up in the future * Mixed restrictive and obstructive lung disease * recent colon polyp removal REC Admit and cont bipap once improved will get MRI of the head and neck to rule out any SEAM PRESS OPERATOR cause for hypercarbia Needs sniff test (diaphramatic fluroscopy) to rule out rt sided diaphramatic paralysis (has left sided paralysis already) Prednisone 10 mg daily Nebs prn Need to rule out motor neuron disease as out pt (has been worked up before) Pt should avoid all sedative and hypnotics Pt is critically ill tts 46 Discussed with and brother
[2018-03-19 22:00] VITALS: BP 100/60
[2018-03-20] VITALS: BP 120/70
[2018-03-20 05:03] LABS: ABSOLUTE BASOPHIL COUNT 0 /CUMM (0.0-0.2); ABSOLUTE EOSINOPHIL COUNT 0 /CUMM (0.0-0.7); ABSOLUTE GRANULOCYTE CT 11.9 /CUMM (1.4-6.5); ABSOLUTE LYMPH COUNT 0.8 /CUMM (1.2-3.4); ABSOLUTE MONOCYTE COUNT 0.7 /CUMM (0.10-0.60); BASOPHIL % 0.1 % (0.0-2.0); EOSINOPHIL % 0 % (0-5); GRANULOCYTE % 88.8 % (42.2-75.2); MEAN CORPUSCULAR HGB 29.1 PG (27.0-31.0); MEAN CORPUSCULAR VOLUME 88.2 FL (80.0-94.0); MEAN PLATELET VOLUME 9.4 FL (7.4-10.4); PLATELET COUNT 259 /CUMM (130-400); RED BLOOD CELL CT 4.78 /CUMM (4.70-6.10); WHITE BLOOD CELL COUNT 13.4 /CUMM (4.8-10.8)
[2018-03-20 05:12] LABS: HEMATOCRIT 42.2 % (42-52)
--- NOTE | 2018-03-20 07:44 | PN- Resident CRCU ---
Subjective HPI/CRCU Issues: Acute on chronic hypercarbic respiratory failure History of COPD History of left-sided diaphragmatic paralysis Leukocytosis likely steroid-induced History of cervical spondylosis status post surgery Left foot cellulitis Constipation History of hyperlipidemia 24 Hour Events: Patient states he slept very well last night on BiPAP, but does not notice any improvement in his breathing. He continues to be on 4 L oxygen per nasal cannula(uses 2 L at night at home). Denies any fevers/chills, cough, sputum production, sick contacts at home or recent travel. Objective Vital Signs & I&O Last 8 Hrs of Vitals and I&O: Intake & Output 03/20 1600 Intake Total 1080 Output Total 200 Balance 880 Intake, IV 20 Intake, Oral 1060 Number 2 Bowel Movements Output, Urine 200 Exam General Appearance: no apparent distress, alert, awake, comfortable Head: atraumatic, normal appearance Respiratory: chest non-tender, decreased breath sounds Cardiovascular: regular rate/rhythm Gastrointestinal: normal bowel sounds, soft, non-tender Extremities: no edema, Left foot erythematous Cranial Nerves: normal hearing, normal speech, PERRL Current Medications: Current Medications Sig/Jackie Start time Last Medication Dose Route Stop Time Status Admin Acetaminophen 650 MG Q6P PRN 03/19 2000 AC PO Albuterol Sulfate 3 ML Q4-PRN PRN 03/19 2230 AC 03/20 INH 1115 Albuterol Sulfate 2 PUF Q4-6 PRN PRN 03/19 2000 AC INH Albuterol Sulfate 3 ML ONCE ONE 03/19 1430 DC 03/19 INH 03/19 1431 1446 Atorvastatin Calcium 10 MG 1700 03/20 1700 AC PO Budesonide/ 2 PUF BID 03/19 2100 AC 03/20 Formoterol Fumarate INH 1000 Cefazolin Sodium 500 MG IQ8 03/20 0000 AC 03/20 IV 0800 Cephalexin 500 MG Q6 03/19 2359 CAN PO 03/20 2300 Cholecalciferol 1,000 IU DAILY 03/20 09 AC 03/20 PO 0959 Cyanocobalamin 1,000 MCG DAILY 03/20 0900 AC 03/20 PO 0959 Enoxaparin Sodium 40 MG DAILY 03/20 0900 AC 03/20 SC 0959 Ipratropium Volin 2.5 ML ONCE ONE 03/19 1430 DC 03/19 INH 03/19 1431 1446 Methylprednisolone 0 .STK-MED ONE 03/19 1533 DC .ROUTE Methylprednisolone 125 MG ONCE ONE 03/19 1430 DC 03/19 IV 03/19 1431 1537 Phosphate 250 MG PC AND AT BEDTIME 03/20 09 AC 03/20 PO 03/20 210 1215 Prednisone 10 MG DAILY 03/20 09 AC 03/20 PO 03/22 0901 0959 Prednisone 10 MG DAILY 03/19 204 DC PO 03/21 0901 Impression/Plan Impression/Problem List Impression: Mr. 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 Patient was recently discharged from [facility] on 03/14/2018 after being treated for acute hypercarbic respiratory failure. He was also started on abx for left foot cellulitis(day 5 of abx on admission). Patient was admitted to the ICU for management of following issues; Acute on chronic hypercarbic respiratory failure History of COPD History of left-sided diaphragmatic paralysis Leukocytosis likely steroid-induced History of cervical spondylosis status post surgery Left foot cellulitis Constipation History of hyperlipidemia Respiratory; 1. Acute on chronic hypercarbic respiratory failure; likely multifactorial from left-sided diaphragmatic paralysis and COPD, however not at end-stage COPD to explain worsening hypercarbia. Recent PET scan showed bilateral lower lobe pulmonary infiltrates suggestive of dynamic atelectasis from left-sided diaphragmatic patency. He has also been extensively worked up as an outpatient by his neurologist for motoneuron disease/ALS that can lead to respiratory failure. Patient presented with worsening shortness of breath, lethargy, confusion. ABGs in the emergency room showed pH 7.32, carbon dioxide 74, bicarbonate 38. Given his acute hypercarbic respiratory failure he was placed on BiPAP with improvement of his symptoms. Repeat ABGs showed a pH of 7.36 and a PCO2 of 71. He was transitioned to nasal cannula, continues to be on 4 L of oxygen. Chest x- ray showed Low lung volumes and subsegmental atelectasis or scar involving the left lower lobe. No overt airspace disease. * Monitor vitals every shift * BiPAP PRN * Continue oxygen supplementation to maintain saturation above 92 * TRC nebs * Will complete his prednisone taper for 3 more days- 10 mg daily * Check vital capacity * MRI head and cervical spine to look for any PUBLISHING SPECIALIST pathology leading to hypercarbic respiratory failure; * Sniff test diaphragmatic fluoroscopy to look for right-sided diaphragmatic palsy; results pending. Given his chronic respiratory failure with acute exacerbations leading to multiple admissions will get sniff test to look for bilateral diaphragmatic paralysis. Infectious; 1. Left foot cellulitis Patient was started on Keflex 500 every 6hrs for left foot cellulitis during his last admission- 7 day course. Will complete his antibiotic course by 2017. Day 6 of Abx. Cardiology; 1. Hyperlipidemia - Continue Lipitor 10mg daily Heme; Leukocytosis WBC 12.8 most likely from recent steroid use. - continue to monitor. Metabolic; - Continue to monitor electrolytes and replete accordingly. Alimentary; 1. Constipation - Continue senna as required for constipation - Regular diet Neuro; 1. History of cervical spondylosis status post surgery He had MRI cervical spine and head in July 2017 for evaluation of flaccid atrophy of left upper extremity and quadriparesis. He has advanced cervical spondylosis at C5-C6,, compression of cervical spinal cord multiple degenerative changes, severe central canal stenosis-status post extensive cervical spine surgery in sep 2017. DVT Prophylaxis; Alps and subcutaneous Lovenox Patient is full code Problem List: 1. Hypercapnic respiratory failure 2. Cellulitis Pain Ratin Pain Location: NA Pain Goal: Remain pain free Pain Plan: NA Tomorrow's Labs & Rationales: CBC(leukocytosis) ICU Bundle Plan DVT/Prophylaxis: mechanical, pharmacological
[2018-03-20 08:00] VITALS: BP 130/70
--- NOTE | 2018-03-20 11:14 | RADIOLOGY REPORT ---
EXAMINATION: XR FLUOROSCOPY CLINICAL INFORMATION: 72-year-old male with suspected right-sided diaphragmatic palsy. Patient is known to have left-sided diaphragmatic palsy. COMPARISON: Chest radiograph done on 03/19/2018, fluoroscopy done on 09/11/2017 and chest radiograph done on 08/20/2017. TECHNIQUE: Real-time fluoroscopic imaging of the diaphragm (sniff test). FINDINGS: Low lung volume is present bilaterally with persistent stable asymmetric elevated left hemidiaphragm as compared to the right side. The right diaphragm shows normal physiologic motion and appear unchanged since 08/20/2017 and 09/11/2017. There is relative mild decreased movement of the left hemidiaphragm noted as compared to the right side. FLUOROSCOPY TIME: 1 minute and 27 seconds. NUMBER OF IMAGES: 4 images IMPRESSION: No fluoroscopic evidence of right-sided diaphragmatic palsy.
[2018-03-20 12:00] VITALS: BP 128/70
--- NOTE | 2018-03-20 14:11 | PN- Pulmonary ---
Subjective HPI/Critical Care Issues: More awake now Mild tachy noted to 112 Pt did have his inhalers this am Mild dyspnea sig fatigue Has fasiculations ON bipap While off bipap he has sig dyspnea and resp insuff ABG reviewed, Baseline pco2 now 71 ON oxygen Objective Current Medications: Current Medications Sig/Jackie Start time Last Medication Dose Route Stop Time Status Admin Acetaminophen 650 MG Q6P PRN 03/19 2000 AC PO Albuterol Sulfate 3 ML Q4-PRN PRN 03/19 2230 AC INH Albuterol Sulfate 2 PUF Q4-6 PRN PRN 03/19 2000 AC INH Albuterol Sulfate 3 ML ONCE ONE 03/19 1430 DC 03/19 INH 03/19 1431 1446 Atorvastatin Calcium 10 MG 1700 03/20 1700 AC PO Budesonide/ 2 PUF BID 03/19 2100 AC 03/20 Formoterol Fumarate INH 1000 Cefazolin Sodium 500 MG IQ8 03/20 0000 AC 03/20 IV 0800 Cephalexin 500 MG Q6 03/19 2359 CAN PO 03/20 2300 Cholecalciferol 1,000 IU DAILY 03/20 09 AC 03/20 PO 0959 Cyanocobalamin 1,000 MCG DAILY 03/20 0900 AC 03/20 PO 0959 Enoxaparin Sodium 40 MG DAILY 03/20 0900 AC 03/20 SC 0959 Ipratropium [employer] 2.5 ML ONCE ONE 03/19 1430 DC 03/19 INH 03/19 1431 1446 Methylprednisolone 0 .STK-MED ONE 03/19 1533 DC .ROUTE Methylprednisolone 125 MG ONCE ONE 03/19 1430 DC 03/19 IV 03/19 1431 1537 Phosphate 250 MG PC AND AT BEDTIME 03/20 09 AC 03/20 PO 03/20 2101 1000 Prednisone 10 MG DAILY 03/20 0900 AC 03/20 PO 03/22 0901 0959 Prednisone 10 MG DAILY 03/19 2045 DC PO 03/21 0901 Vital Signs & I&O Last 24 Hrs of Vitals and I&O: Vital Signs Date Time Temp Pulse Resp B/P B/P Pulse O2 O2 Flow FiO2 Mean Ox Delivery Rate 03/20 0615 92 96 03/20 0400 96 BIPAP 30% 03/20 0307 89 96 03/20 0035 93 96 03/20 0000 95 BIPAP 30% 03/20 0000 97.6 90 19 120/70 96 BIPAP 30% 03/19 2220 BIPAP 30% 03/190 98.4 111 18 100/60 91 BIPAP 30% 03/19 2200 95 BIPAP 30% 03/19 2149 91 03/19 2055 74 18 123/66 95 Nasal 3.0L Cannula 03/19 1738 97.0 73 18 139/81 95 BIPAP 30% 03/19 1636 87 18 162/78 97 BIPAP 03/19 1602 96 03/19 1447 78 99 03/19 1446 94 Nasal 2.0L Cannula 03/19 1405 96.0 96 20 182/88 91 Nasal 2.0L Cannula Intake & Output 03/20 1600 03/20 0800 03/20 0000 Intake Total 240 Output Total 375 175 Balance -135 -175 Intake, Oral 240 Output, Urine 375 175 Patient 155 lb Weight Weight Bed scale Measurement Method Laboratory Tests 03/20 03/19 0405 2135 Blood Gas pH (7.35 - 7.45 PH) 7.36 pCO2 (35 - 45 TORR) 71 *H pO2 (80 - 100 TORR) 65 L HCO3 (21 - 28 MEQ/L) 39 H ABG O2 Sat (Measured) (>96.0 %) 91.0 L P-50 (Temp Corrected) Y Carboxyhemoglobin (1.5 - 5.0 %) 0.7 L O2 Concentration % 4L Temperature (97.0 - 100.0 FARH) 98.4 O2 Delivery Method N/C Chemistry Sodium (137 - 145 mmol/L) 146 H Potassium (3.5 - 5.1 mmol/L) 4.7 Chloride (98 - 107 mmol/L) 100 Carbon Dioxide (22 - 30 mmol/L) 37 H Anion Gap (5 - 16) 9 BUN (9 - 20 mg/dL) 14 Creatinine (0.7 - 1.2 mg/dL) 0.6 L Estimated GFR (>60 ml/min) > 60 Glucose (65 - 99 mg/dL) 116 H Calcium (8.4 - 10.2 mg/dL) 9.6 Phosphorus (2.5 - 4.5 mg/dL) 3.6 Magnesium (1.6 - 2.3 mg/dL) 1.9 Total Bilirubin (0.2 - 1.3 mg/dL) 0.6 AST (17 - 59 U/L) 46 ALT (21 - 72 U/L) 57 Albumin (3.5 - 5.0 g/dL) 3.1 L Hematology CBC w Diff MAN DIFF ORDERED WBC (4.8 - 10.8 /CUMM) 13.4 H RBC (4.70 - 6.10 /CUMM) 4.78 Hgb (14.0 - 18.0 G/DL) 13.9 L Hct (42 - 52 %) 42.2 MCV (80.0 - 94.0 FL) 88.2 MCH (27.0 - 31.0 PG) 29.1 MCHC (33.0 - 37.0 G/DL) 33.0 RDW (11.5 - 14.5 %) 15.0 H Plt Count (130 - 400 /CUMM) 259 MPV (7.4 - 10.4 FL) 9.4 Gran % (42.2 - 75.2 %) 88.8 H Lymphocytes % (20.5 - 51.1 %) 6.2 L Monocytes % (1.7 - 9.3 %) 4.9 Eosinophils % (0 - 5 %) 0 Basophils % (0.0 - 2.0 %) 0.1 Absolute Granulocytes (1.4 - 6.5 /CUMM) 11.9 H Segmented Neutrophils (42.2 - 75.2 %) 87 H Absolute Lymphocytes (1.2 - 3.4 /CUMM) 0.8 L Lymphocytes (20.5 - 51.1 %) 6 L Monocytes (1.7 - 9.3 %) 7 Absolute Monocytes (0.10 - 0.60 /CUMM) 0.7 H Absolute Eosinophils (0.0 - 0.7 /CUMM) 0 Absolute Basophils (0.0 - 0.2 /CUMM) 0 Platelet Estimate (ADEQUATE) ADEQUATE Normochromic RBCs VERIFIED Poikilocytosis 2+ Ovalocytes 1+ Stomatocytes 1+ Miscellaneous Phlebotomy Draw Site RIGHT RADIAL Other Body Source Fld Total RBCs Counted (%) 100 03/19 03/19 8971 1737 Chemistry Lactic Acid Cancelled Toxicology Urine Opiates Screen (>2000 NG/ML) < 100 Methadone Screen (>300 NG/ML) < 40 Barbiturate Screen (>200 NG/ML) < 60 Ur Phencyclidine Scrn (>25 NG/ML) < 6.00 Amphetamines Screen (>1000 NG/ML) < 100 U Benzodiazepines Scrn (>200 NG/ML) < 85 Urine Cocaine Screen (>300 NG/ML) < 50 Urine Cannabis Screen (>50 NG/ML) < 5.00 Urines Urine Color (YEL,AMB,STR) YEL Urine Clarity (CLEAR) CLEAR Urine pH (5.0 - 8.0) 7.0 Ur Specific [place] (1.001 - 1.035) 1.015 Urine Protein (NEG,<30 MG/DL) NEG Urine Ketones (NEG) NEG Urine Nitrite (NEG) NEG Urine Bilirubin (NEG) NEG Urine Urobilinogen (0.1 - 1.0 EU/dl) 0.2 Ur Leukocyte Esterase (NEG) NEG Ur Microscopic EXAM NOT REQUIRED Urine Hemoglobin (NEG) NEG Urine Glucose (N MG/DL) NEG 03/19 03/19 1437 1430 Blood Gas pH (7.35 - 7.45 PH) 7.32 L pCO2 (35 - 45 TORR) 74 *H pO2 (80 - 100 TORR) 78 L HCO3 (21 - 28 MEQ/L) 38 H ABG O2 Sat (Measured) (>96.0 %) 95.0 L Carboxyhemoglobin (1.5 - 5.0 %) 1.0 L O2 Concentration % 2L O2 Delivery Method NC Chemistry Sodium (137 - 145 mmol/L) 147 H Potassium (3.5 - 5.1 mmol/L) 4.4 Chloride (98 - 107 mmol/L) 97 L Carbon Dioxide (22 - 30 mmol/L) 41 H Anion Gap (5 - 16) 9 BUN (9 - 20 mg/dL) 9 Creatinine (0.7 - 1.2 mg/dL) 0.4 L Estimated GFR (>60 ml/min) > 60 BUN/Creatinine Ratio (7 - 25 %) 22.5 Glucose (65 - 99 mg/dL) 101 H Lactic Acid (0.7 - 2.1 mmol/L) 1.4 Calcium (8.4 - 10.2 mg/dL) 9.3 Phosphorus (2.5 - 4.5 mg/dL) 4.5 Magnesium (1.6 - 2.3 mg/dL) 1.9 Total Bilirubin (0.2 - 1.3 mg/dL) 0.5 AST (17 - 59 U/L) 73 H ALT (21 - 72 U/L) 75 H Alkaline Phosphatase (< 127 U/L) 50 Troponin I (<0.11 ng/ml) < 0.01 Smr-P-Fszkoncpibs Pept (<125 pg/mL) 23.8 Total Protein (6.3 - 8.2 g/dL) 6.5 Albumin (3.5 - 5.0 g/dL) 3.9 Globulin (1.9 - 4.2 gm/dL) 2.6 Albumin/Globulin Ratio (1.1 - 2.2 %) 1.5 Hematology CBC w Diff MAN DIFF ORDERED WBC (4.8 - 10.8 /CUMM) 12.8 H RBC (4.70 - 6.10 /CUMM) 5.30 Hgb (14.0 - 18.0 G/DL) 15.1 Hct (42 - 52 %) 47.4 MCV (80.0 - 94.0 FL) 89.4 MCH (27.0 - 31.0 PG) 28.5 MCHC (33.0 - 37.0 G/DL) 31.9 L RDW (11.5 - 14.5 %) 15.6 H Plt Count (130 - 400 /CUMM) 288 MPV (7.4 - 10.4 FL) 8.9 Gran % (42.2 - 75.2 %) 90.9 H Lymphocytes % (20.5 - 51.1 %) 4.9 L Monocytes % (1.7 - 9.3 %) 4.0 Eosinophils % (0 - 5 %) 0.1 Basophils % (0.0 - 2.0 %) 0.1 Absolute Granulocytes (1.4 - 6.5 /CUMM) 11.6 H Absolute Lymphocytes (1.2 - 3.4 /CUMM) 0.6 L Absolute Monocytes (0.10 - 0.60 /CUMM) 0.5 Absolute Eosinophils (0.0 - 0.7 /CUMM) 0 Absolute Basophils (0.0 - 0.2 /CUMM) 0 Platelet Estimate (ADEQUATE) ADEQUATE Normocytic RBCs VERIFIED Normochromic RBCs VERIFIED Miscellaneous Phlebotomy Draw Site RIGHT RADIAL Microbiology Date/Time Procedure - Status Source Growth 03/19 2130 Surveillance Culture - RECD UPPER RESP 03/19 2130 Surveillance Culture - RECD GI Impression/Plan Impression/Plan Impression/Plan: General Appearance on bipap and in resp failure Skin No Rashes Skin Temp/Moisture Exam: Warm/Dry HEENT Atraumatic, PERRLA, EOMI, Mucous Membr. moist/pink Neck Supple Lymphatic No cervical lymphadenopathy Cardiovascular Regular Rate, Normal S1, Normal S2, No Murmurs Lungs Clear to Auscultation, Decrease air entery of left lung Abdomen Normal Bowel Sounds, Soft, No Tenderness Neurological Normal Speech, Strength at 5/5 X4 Ext, Normal Tone, Sensation Intact, Cranial Nerves 3-12 NL, Hyperreflexia x4 clonus fasculation Extremities No Clubbing, No Cyanosis, No Edema, Normal Pulses multiple fasciculation IMPRESSION PT with recent extensive cervical spine surg for severe djd, previous left sided diapharam paralysis with history of sig smoking, 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 and has copd aswell- however his copd is not severe enough to explain worsening hypercarbia(recent ct and pet scan showed bilateral lower lobe pulm contrast enhancing infiltrates highly sugg of dynamic atelectasis from his left sided diaphramatic paralysis and hypoventilation and neurodegen disease * Cervical disc disease / s/p surg as he had quadreperesis before with good recovery of function * Atelectasis bibasilar due to cervical dz causeing diapharm dysfunction and left diapharamatic paralysis, and now prob neurodegenarative disease * COPD fev1 of 1.49 litres, with no copd exacerbatin * REcent Cellulitis foot on antibiotics improved * History of smoking 30 or more pack years quit 2016 * Personal history of malignant neoplasm of prostate s/p surg needs follw up in the future, no evidence of recurrence * Mixed restrictive and obstructive lung disease * recent colon polyp removal REC Cont bipap at night CT neck and head to rule out any sig path of the cspine and head Prednisone 10 mg daily for two and 5 mg daily for two and dc Cont spiriva and symbicort Pt should avoid all sedative and hypnotics Pt is critically ill tts 46 Discussed with yesterday
--- NOTE | 2018-03-20 14:26 | Event Note ---
Event Note Event Note: PT has sig hypercarbia with dx of Dx neuromuscular disease ICD G 70.9 * Has Sig dyspnea and resp failure, with sig symptoms of fatigue, severe dyspnea , morning headache and severe hypoxia and hypersomnia during the day time needing multiple admissions to the hospital * Subsequently on bipap with back up rate has had remarkable improvement of his symptoms and overall condition Pt clearly needs Bipap with a back up rate RESP assist device [id number] needs AVAPS (rate and tidal volume back up) * ABG shows baseline pco2 of 71 at baseline while awake on baseline oxygen of 2 litres * Nocturnal oxymety shows severe desat on oxygen with less than 88 percent for a total of one hour (60 mins) * FOrced vital capacity is low at 1.4 litres which is less than 50 percent predicted for the patient (predicted is 3.4 litres) PT is on Bipap of 16/6 with a back up rate of 12 and hence he needs Respiratory assist device avps with the same settings
[2018-03-20 16:00] VITALS: BP 108/66
[2018-03-21] VITALS: BP 100/60
[2018-03-21 06:20] LABS: ABSOLUTE BASOPHIL COUNT 0 /CUMM (0.0-0.2); ABSOLUTE EOSINOPHIL COUNT 0.2 /CUMM (0.0-0.7); ABSOLUTE LYMPH COUNT 2.4 /CUMM (1.2-3.4); ABSOLUTE MONOCYTE COUNT 0.8 /CUMM (0.10-0.60); BASOPHIL % 0.4 % (0.0-2.0); EOSINOPHIL % 1.6 % (0-5); GRANULOCYTE % 66.6 % (42.2-75.2); HEMATOCRIT 40.4 % (42-52); MEAN CORPUSCULAR HGB 28.8 PG (27.0-31.0); MEAN CORPUSCULAR HGB CONC 32.7 G/DL (33.0-37.0); MEAN PLATELET VOLUME 8.6 FL (7.4-10.4); PLATELET COUNT 247 /CUMM (130-400); RBC DISTRIBUTION WIDTH 15.5 % (11.5-14.5); RED BLOOD CELL CT 4.59 /CUMM (4.70-6.10); WHITE BLOOD CELL COUNT 10.5 /CUMM (4.8-10.8)
[2018-03-21 08:00] VITALS: BP 110/60
--- NOTE | 2018-03-21 08:58 | PN- Resident CRCU ---
Subjective HPI/CRCU Issues: Acute on chronic hypercarbic respiratory failure History of COPD History of left-sided diaphragmatic paralysis Leukocytosis likely steroid-induced History of cervical spondylosis status post surgery Left foot cellulitis Constipation History of hyperlipidemia 24 Hour Events: Patient states he is able to sleep better at night on BiPAP, but does not notice any improvement in his breathing during the daytime despite being on 4 L of oxygen(uses 2 L at home). Denies any fever/chills, cough, sputum production or any overnight events. He is agreeable to doing the CT cervical spine and head today. Objective Vital Signs & I&O Last 8 Hrs of Vitals and I&O: Intake & Output 03/21 1600 Intake Total 1340 Output Total 350 Balance 990 Intake, IV 20 Intake, Oral 1320 Number 1 Bowel Movements Output, Urine 350 Exam General Appearance: no apparent distress, alert, awake, comfortable Head: atraumatic, normal appearance Respiratory: decreased breath sounds Cardiovascular: regular rate/rhythm Gastrointestinal: normal bowel sounds, soft, non-tender Extremities: normal inspection, no edema Cranial Nerves: normal hearing, normal speech, PERRL Current Medications: Current Medications Sig/Jackie Start time Last Medication Dose Route Stop Time Status Admin Acetaminophen 650 MG Q6P PRN 03/19 2000 AC PO Albuterol Sulfate 3 ML Q4-PRN PRN 03/19 2230 AC 03/20 INH 1115 Albuterol Sulfate 2 PUF Q4-6 PRN PRN 03/19 2000 AC INH Atorvastatin Calcium 10 MG 1700 03/20 1700 AC 03/20 PO 1750 Budesonide/ 2 PUF BID 03/19 2100 AC 03/21 Formoterol Fumarate INH 0756 Cefazolin Sodium 500 MG IQ8 03/20 0000 AC 03/21 IV 0755 Cholecalciferol 1,000 IU DAILY 03/20 0900 AC 03/21 PO 0755 Cyanocobalamin 1,000 MCG DAILY 03/20 0900 AC 03/21 PO 0755 Enoxaparin Sodium 40 MG DAILY 03/20 09 AC 03/21 SC 0755 Magnesium Oxide 400 MG BID 03/21 1108 AC 03/21 PO 03/22 09 1228 Phosphate 250 MG PC AND AT BEDTIME 03/20 0900 DC 03/20 PO 03/20 2101 202 Prednisone 5 MG DAILY 03/22 09 AC PO 03/23 09 Prednisone 10 MG DAILY 03/20 0900 DC 03/21 PO 03/21 0901 0755 Impression/Plan Impression/Problem List Impression: Mr. 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 Patient was recently discharged from [facility] on 03/14/2018 after being treated for acute hypercarbic respiratory failure. He was also started on abx for left foot cellulitis(day 5 of abx on admission). Patient was admitted to the ICU for management of following issues; Acute on chronic hypercarbic respiratory failure History of COPD History of left-sided diaphragmatic paralysis Leukocytosis likely steroid-induced History of cervical spondylosis status post surgery Left foot cellulitis Constipation History of hyperlipidemia Respiratory; 1. Acute on chronic hypercarbic respiratory failure; likely multifactorial from left-sided diaphragmatic paralysis and COPD, however not at end-stage COPD to explain worsening hypercarbia. Recent PET scan showed bilateral lower lobe pulmonary infiltrates suggestive of dynamic atelectasis from left-sided diaphragmatic patency. He has also been extensively worked up as an outpatient by his neurologist for motoneuron disease/ALS that can lead to respiratory failure. Patient presented with worsening shortness of breath, lethargy, confusion. ABGs in the emergency room showed pH 7.32, carbon dioxide 74, bicarbonate 38. Given his acute hypercarbic respiratory failure he was placed on BiPAP with improvement of his symptoms. Repeat ABGs showed a pH of 7.36 and a PCO2 of 71. He was transitioned to nasal cannula, continues to be on 4 L of oxygen. Chest x- ray showed Low lung volumes and subsegmental atelectasis or scar involving the left lower lobe. No overt airspace disease. Vital capacity 1.4, FEV1 1.45. Sniff test diaphragmatic fluoroscopy negative for any right-sided diaphragmatic palsy. * Monitor vitals every shift * BiPAP at night * Qualifies for home Bipap with back up rate * Continue oxygen supplementation to maintain saturation above 92 * TRC nebs * Will complete his prednisone taper for 2 more days- 5 mg daily * MRI head and cervical spine was refused by the patient yesterday as he can not lie down flat because of difficulty breathing. Aggreable to CT scan today to look for any [employer]IST[employer] pathology leading to hypercarbic respiratory failure. Infectious; 1. Left foot cellulitis Patient was started on Keflex 500 every 6hrs for left foot cellulitis during his last admission- 7 day course. Day 7 of Abx, will discontinue after today's dose. Cardiology; 1. Hyperlipidemia - Continue Lipitor 10mg daily Heme; Leukocytosis WBC was 12.8 most likely from recent steroid use, WNL today. - continue to monitor. Metabolic; - Continue to monitor electrolytes and replete accordingly. Alimentary; 1. Constipation - Continue senna as required for constipation - Regular diet Neuro; 1. History of cervical spondylosis status post surgery He had MRI cervical spine and head in July 2017 for evaluation of flaccid atrophy of left upper extremity and quadriparesis. He has advanced cervical spondylosis at C5-C6,, compression of cervical spinal cord multiple degenerative changes, severe central canal stenosis-status post extensive cervical spine surgery in sep 2017. DVT Prophylaxis; Alps and subcutaneous Lovenox Patient is full code Problem List: 1. Hypercapnic respiratory failure 2. Cellulitis Pain Ratin Pain Location: NA Pain Goal: Remain pain free Pain Plan: NA Tomorrow's Labs & Rationales: CBC ICU bundle Plan DVT/Prophylaxis: mechanical, pharmacological
--- NOTE | 2018-03-21 13:32 | PN- CRCU ---
Subjective HPI/Critical Care Issues: Much improved Off bipap mild pedal edema Objective Current Medications: Current Medications Sig/Jackie Start time Last Medication Dose Route Stop Time Status Admin Acetaminophen 650 MG Q6P PRN 03/19 2000 AC PO Albuterol Sulfate 3 ML Q4-PRN PRN 03/19 2230 AC 03/20 INH 1115 Albuterol Sulfate 2 PUF Q4-6 PRN PRN 03/19 2000 AC INH Atorvastatin Calcium 10 MG 1700 03/20 1700 AC 03/20 PO 1750 Budesonide/ 2 PUF BID 03/19 2100 AC 03/21 Formoterol Fumarate INH 0756 Cefazolin Sodium 500 MG IQ8 03/20 0000 AC 03/21 IV 0755 Cholecalciferol 1,000 IU DAILY 03/20 0900 AC 03/21 PO 0755 Cyanocobalamin 1,000 MCG DAILY 03/20 0900 AC 03/21 PO 0755 Enoxaparin Sodium 40 MG DAILY 03/20 0900 AC 03/21 SC 0755 Magnesium Oxide 400 MG BID 03/21 1108 AC 03/21 PO 03/22 0901 1228 Phosphate 250 MG PC AND AT BEDTIME 03/20 09 DC 03/20 PO 03/20 210 2028 Prednisone 5 MG DAILY 03/22 09 AC PO 03/23 0901 Prednisone 10 MG DAILY 03/20 0900 DC 03/21 PO 03/21 0901 0755 Vital Signs & I&O Last 24 Hrs of Vitals and I&O: Vital Signs Date Time Temp Pulse Resp B/P B/P Pulse O2 O2 Flow FiO2 Mean Ox Delivery Rate 03/21 1200 96 Nasal 4.0L Cannula 03/21 0800 97 Nasal 3.0L Cannula 03/21 0800 98.1 88 18 110/60 97 Nasal 3.0L Cannula 03/21 0609 85 96 03/21 0400 96 BIPAP 30% 03/21 0256 86 96 03/21 0011 84 96 03/21 0000 97.2 84 18 100/60 95 BIPAP 30% 03/21 0000 95 BIPAP 30% 03/20 2231 98 97 03/20 2000 94 Nasal 4.0L Cannula 03/20 2000 94 Nasal 4.0L Cannula 03/20 1600 94 Nasal 4.0L Cannula 03/20 1600 99.0 115 26 108/66 96 Nasal 4.0L Cannula Intake & Output 03/21 1600 03/21 0800 03/21 0000 Intake Total 200 1100 Output Total 350 450 Balance -150 650 Intake, IV 20 Intake, Oral 200 1080 Number 1 Bowel Movements Output, Urine 350 450 Laboratory Tests 03/21 03/20 0600 0405 Chemistry Sodium (137 - 145 mmol/L) 141 146 H Potassium (3.5 - 5.1 mmol/L) 4.1 4.7 Chloride (98 - 107 mmol/L) 96 L 100 Carbon Dioxide (22 - 30 mmol/L) 41 H 37 H Anion Gap (5 - 16) 4 L 9 BUN (9 - 20 mg/dL) 18 14 Creatinine (0.7 - 1.2 mg/dL) 0.6 L 0.6 L Estimated GFR (>60 ml/min) > 60 > 60 Glucose (65 - 99 mg/dL) 87 116 H Calcium (8.4 - 10.2 mg/dL) 9.0 9.6 Phosphorus (2.5 - 4.5 mg/dL) 4.0 3.6 Magnesium (1.6 - 2.3 mg/dL) 1.7 1.9 Total Bilirubin (0.2 - 1.3 mg/dL) 0.8 0.6 AST (17 - 59 U/L) 52 46 ALT (21 - 72 U/L) 62 57 Albumin (3.5 - 5.0 g/dL) 2.9 L 3.1 L Hematology CBC w Diff NO MAN DIFF REQ MAN DIFF ORDERED WBC (4.8 - 10.8 /CUMM) 10.5 13.4 H RBC (4.70 - 6.10 /CUMM) 4.59 L 4.78 Hgb (14.0 - 18.0 G/DL) 13.2 L 13.9 L Hct (42 - 52 %) 40.4 L 42.2 MCV (80.0 - 94.0 FL) 88.0 88.2 MCH (27.0 - 31.0 PG) 28.8 29.1 MCHC (33.0 - 37.0 G/DL) 32.7 L 33.0 RDW (11.5 - 14.5 %) 15.5 H 15.0 H Plt Count (130 - 400 /CUMM) 247 259 MPV (7.4 - 10.4 FL) 8.6 9.4 Gran % (42.2 - 75.2 %) 66.6 88.8 H Lymphocytes % (20.5 - 51.1 %) 23.3 6.2 L Monocytes % (1.7 - 9.3 %) 8.1 4.9 Eosinophils % (0 - 5 %) 1.6 0 Basophils % (0.0 - 2.0 %) 0.4 0.1 Absolute Granulocytes (1.4 - 6.5 /CUMM) 7.0 H 11.9 H Segmented Neutrophils (42.2 - 75.2 %) 87 H Absolute Lymphocytes (1.2 - 3.4 /CUMM) 2.4 0.8 L Lymphocytes (20.5 - 51.1 %) 6 L Monocytes (1.7 - 9.3 %) 7 Absolute Monocytes (0.10 - 0.60 /CUMM) 0.8 H 0.7 H Absolute Eosinophils (0.0 - 0.7 /CUMM) 0.2 0 Absolute Basophils (0.0 - 0.2 /CUMM) 0 0 Platelet Estimate (ADEQUATE) ADEQUATE Normochromic RBCs VERIFIED Poikilocytosis 2+ Ovalocytes 1+ Stomatocytes 1+ Other Body Source Fld Total RBCs Counted (%) 100 03/19 03/19 6721 8049 Blood Gas pH (7.35 - 7.45 PH) 7.36 pCO2 (35 - 45 TORR) 71 *H pO2 (80 - 100 TORR) 65 L HCO3 (21 - 28 MEQ/L) 39 H ABG O2 Sat (Measured) (>96.0 %) 91.0 L P-50 (Temp Corrected) Y Carboxyhemoglobin (1.5 - 5.0 %) 0.7 L O2 Concentration % 4L Temperature (97.0 - 100.0 FARH) 98.4 O2 Delivery Method N/C Miscellaneous Phlebotomy Draw Site RIGHT RADIAL Toxicology Urine Opiates Screen (>2000 NG/ML) < 100 Methadone Screen (>300 NG/ML) < 40 Barbiturate Screen (>200 NG/ML) < 60 Ur Phencyclidine Scrn (>25 NG/ML) < 6.00 Amphetamines Screen (>1000 NG/ML) < 100 U Benzodiazepines Scrn (>200 NG/ML) < 85 Urine Cocaine Screen (>300 NG/ML) < 50 Urine Cannabis Screen (>50 NG/ML) < 5.00 Urines Urine Color (YEL,AMB,STR) YEL Urine Clarity (CLEAR) CLEAR Urine pH (5.0 - 8.0) 7.0 Ur Specific [place] (1.001 - 1.035) 1.015 Urine Protein (NEG,<30 MG/DL) NEG Urine Ketones (NEG) NEG Urine Nitrite (NEG) NEG Urine Bilirubin (NEG) NEG Urine Urobilinogen (0.1 - 1.0 EU/dl) 0.2 Ur Leukocyte Esterase (NEG) NEG Ur Microscopic EXAM NOT REQUIRED Urine Hemoglobin (NEG) NEG Urine Glucose (N MG/DL) NEG 03/19 03/19 1717 1437 Chemistry Sodium (137 - 145 mmol/L) 147 H Potassium (3.5 - 5.1 mmol/L) 4.4 Chloride (98 - 107 mmol/L) 97 L Carbon Dioxide (22 - 30 mmol/L) 41 H Anion Gap (5 - 16) 9 BUN (9 - 20 mg/dL) 9 Creatinine (0.7 - 1.2 mg/dL) 0.4 L Estimated GFR (>60 ml/min) > 60 BUN/Creatinine Ratio (7 - 25 %) 22.5 Glucose (65 - 99 mg/dL) 101 H Lactic Acid (0.7 - 2.1 mmol/L) Cancelled 1.4 Calcium (8.4 - 10.2 mg/dL) 9.3 Phosphorus (2.5 - 4.5 mg/dL) 4.5 Magnesium (1.6 - 2.3 mg/dL) 1.9 Total Bilirubin (0.2 - 1.3 mg/dL) 0.5 AST (17 - 59 U/L) 73 H ALT (21 - 72 U/L) 75 H Alkaline Phosphatase (< 127 U/L) 50 Troponin I (<0.11 ng/ml) < 0.01 Nxf-F-Bvqbrxwokzs Pept (<125 pg/mL) 23.8 Total Protein (6.3 - 8.2 g/dL) 6.5 Albumin (3.5 - 5.0 g/dL) 3.9 Globulin (1.9 - 4.2 gm/dL) 2.6 Albumin/Globulin Ratio (1.1 - 2.2 %) 1.5 Hematology CBC w Diff MAN DIFF ORDERED WBC (4.8 - 10.8 /CUMM) 12.8 H RBC (4.70 - 6.10 /CUMM) 5.30 Hgb (14.0 - 18.0 G/DL) 15.1 Hct (42 - 52 %) 47.4 MCV (80.0 - 94.0 FL) 89.4 MCH (27.0 - 31.0 PG) 28.5 MCHC (33.0 - 37.0 G/DL) 31.9 L RDW (11.5 - 14.5 %) 15.6 H Plt Count (130 - 400 /CUMM) 288 MPV (7.4 - 10.4 FL) 8.9 Gran % (42.2 - 75.2 %) 90.9 H Lymphocytes % (20.5 - 51.1 %) 4.9 L Monocytes % (1.7 - 9.3 %) 4.0 Eosinophils % (0 - 5 %) 0.1 Basophils % (0.0 - 2.0 %) 0.1 Absolute Granulocytes (1.4 - 6.5 /CUMM) 11.6 H Absolute Lymphocytes (1.2 - 3.4 /CUMM) 0.6 L Absolute Monocytes (0.10 - 0.60 /CUMM) 0.5 Absolute Eosinophils (0.0 - 0.7 /CUMM) 0 Absolute Basophils (0.0 - 0.2 /CUMM) 0 Platelet Estimate (ADEQUATE) ADEQUATE Normocytic RBCs VERIFIED Normochromic RBCs VERIFIED 03/19 1430 Blood Gas pH (7.35 - 7.45 PH) 7.32 L pCO2 (35 - 45 TORR) 74 *H pO2 (80 - 100 TORR) 78 L HCO3 (21 - 28 MEQ/L) 38 H ABG O2 Sat (Measured) (>96.0 %) 95.0 L Carboxyhemoglobin (1.5 - 5.0 %) 1.0 L O2 Concentration % 2L O2 Delivery Method NC Miscellaneous Phlebotomy Draw Site RIGHT RADIAL Microbiology Date/Time Procedure - Status Source Growth 03/19 2130 Surveillance Culture - COMP UPPER RESP 03/19 2130 Surveillance Culture - COMP GI Impression/Plan Impression/Plan Impression/Plan: ECHO CONCLUSIONS Normal size left ventricle. Normal left ventricular wall thickness. Normal left ventricular ejection fraction visually estimated at > 60%. Mild mitral regurgitation. Trace aortic regurgitation. Right ventricular systolic pressure estimated to be elevated at 42 mmHg. Mild pulmonic regurgitation. Final Date: 03 December 2017 General Appearance on bipap and in resp failure Skin No Rashes Skin Temp/Moisture Exam: Warm/Dry HEENT Atraumatic, PERRLA, EOMI, Mucous Membr. moist/pink Neck Supple Lymphatic No cervical lymphadenopathy Cardiovascular Regular Rate, Normal S1, Normal S2, No Murmurs Lungs Clear to Auscultation, Decrease air entery of left lung Abdomen Normal Bowel Sounds, Soft, No Tenderness Neurological Normal Speech, Strength at 5/5 X4 Ext, Normal Tone, Sensation Intact, Cranial Nerves 3-12 NL, Hyperreflexia x4 clonus fasculation Extremities No Clubbing, No Cyanosis, No Edema, Normal Pulses multiple fasciculation IMPRESSION PT with recent extensive cervical spine surg for severe djd, previous left sided diapharam paralysis with history of sig smoking, 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 and has copd aswell- however his copd is not severe enough to explain worsening hypercarbia(recent ct and pet scan showed bilateral lower lobe pulm contrast enhancing infiltrates highly sugg of dynamic atelectasis from his left sided diaphramatic paralysis and hypoventilation and neurodegen disease * Cervical disc disease / s/p surg as he had quadreperesis before with good recovery of function, and left diaphram paralysis is due to C spine disease * Atelectasis bibasilar due to cervical dz causeing diapharm dysfunction and left diapharamatic paralysis, and now prob neurodegenarative disease * COPD fev1 of 1.49 litres, with no copd exacerbatin * REcent Cellulitis foot on antibiotics improved * History of smoking 30 or more pack years quit 2016 * Personal history of malignant neoplasm of prostate s/p surg needs follw up in the future, no evidence of recurrence * Mixed restrictive and obstructive lung disease * recent colon polyp removal REC Cont bipap at night needs avps at home CT neck and head to rule out any sig path of the cspine and head, pt is agreeable Prednisone 5 mg daily for two and dc Cont spiriva and symbicort Pt should avoid all sedative and hypnotics ADDENDUM Pt does qualify for bipap with back up rate AVAPS PT has sig hypercarbia with dx of Dx neuromuscular disease ICD G 70.9 * Has Sig dyspnea and resp failure, with sig symptoms of fatigue, severe dyspnea , morning headache and severe hypoxia and hypersomnia during the day time needing multiple admissions to the hospital * Subsequently on bipap with back up rate has had remarkable improvement of his symptoms and overall condition Pt clearly needs Bipap with a back up rate RESP assist device [id number] needs AVAPS (rate and tidal volume back up) * ABG shows baseline pco2 of 71 at baseline while awake on baseline oxygen of 2 litres * Nocturnal oxymety shows severe desat on oxygen with less than 88 percent for a total of one hour (60 mins) * FOrced vital capacity is low at 1.4 litres which is less than 50 percent predicted for the patient (predicted is 3.4 litres) PT is on Bipap of 11/05 with a back up rate of 12 and hence he needs Respiratory assist device avps with the same settings
[2018-03-21 16:00] VITALS: BP 100/70
--- NOTE | 2018-03-21 16:28 | CT SCAN REPORT ---
CT HEAD WITHOUT IV CONTRAST CT CERVICAL SPINE WITHOUT IV CONTRAST INDICATION: Hypercarbic respiratory distress to rule out MANAGER DISH pathology. COMPARISON: Head CT 03/11/[address] 12/01/2017. TECHNIQUE: Multidetector CT acquisitions of the head and cervical spine were obtained without IV contrast. Multiplanar reformats were acquired and utilized for image interpretation. FINDINGS: HEAD: Very limited motion degraded noncontrast CT of the head with streak artifact at the periphery of the brain parenchyma limiting assessment for small volume intracranial hemorrhage. Original large volume intracranial hemorrhage. There is global cerebral volume loss. No definite acute territorial infarcts are identified with assessment limited by the degree of artifact. The basilar cisterns are preserved. Mild mucosal thickening within the right sphenoid sinus. The remaining paranasal sinuses and the mastoid air cells are clear. CERVICAL SPINE: Stable cervical alignment with mild retrosubluxation of C3 on C4. Moderate to severe disc volume loss and degenerative endplate changes at the C3-C7 levels remain stable. There is moderate to severe bilateral bony foraminal stenosis at all of these levels. There is multilevel hypertrophic facet arthropathy. There are laminectomy changes at C6. Hypertrophic degenerative changes of the atlantodental interval. There is no acute fracture and there is no acute subluxation. There is no prevertebral soft tissue swelling. No significant soft tissue abnormality within the neck. Centrilobular emphysema within the imaged upper lungs. IMPRESSION: 1. No definite acute intracranial findings though assessment is very limited by the degree of motion/streak artifact which significantly obscures portions of the intracranial compartment. 2. No acute osseous abnormality within the cervical spine. Stable appearing moderate to severe cervical spondylosis. Chronic C6 laminectomy.
[2018-03-21 18:37] VITALS: BP 118/68
[2018-03-21 21:25] VITALS: BP 130/72
[2018-03-22 05:57] VITALS: BP 118/78
--- NOTE | 2018-03-22 07:44 | PN- Housestaff ---
Subjective Follow-up For: Acute on chronic hypercarbic respiratory failure secondary due to COPD. Complaints: no complaints Subjective: Patient seen and examined at bedside. He is on 5 L of oxygen. He is not in any acute distress. He denies shortness of breath, chest pain, nausea, vomiting. He is agreeable and eager to go to short-term rehabilitation. Review of Systems Constitutional: Reports: no symptoms, see HPI. Objective Last 24 Hrs of Vital Signs/I&O Vital Signs Date Time Temp Pulse Resp B/P B/P Pulse O2 O2 Flow FiO2 Mean Ox Delivery Rate 03/22 0800 99 Nasal 4.0L Cannula 03/22 0557 98.5 85 20 118/78 99 Nasal 4.0L Cannula 03/22 0505 91 96 03/22 0351 76 98 03/22 0032 77 96 03/22 0000 BIPAP 03/21 2248 68 98 03/21 2125 98.0 95 18 130/72 98 Nasal 4.0L Cannula 03/21 1906 94 Nasal 4.0L Cannula 03/21 1837 98.4 111 18 118/68 92 Nasal 4.0L Cannula 03/21 1600 97 Nasal 4.0L Cannula 03/21 1600 98.5 92 22 100/70 97 Nasal 4.0L Cannula Intake & Output 03/22 1600 03/22 0800 03/22 0000 Intake Total 260 Output Total 300 500 Balance -300 -240 Intake, IV 20 Intake, Oral 240 Output, Urine 300 500 Physical Exam General Appearance: Alert, Oriented X3, Cooperative, No Acute Distress Cardiovascular: Regular Rate, Normal S1, Normal S2, No Murmurs Lungs: Clear to Auscultation Abdomen: Soft, No Tenderness, No Hepatospenomegaly Neurological: Strength at 5/5 X4 Ext, Normal Tone, Sensation Intact, Cranial Nerves 3-12 NL Extremities: No Edema Current Medications: Current Medications Sig/Jackie Start time Last Medication Dose Route Stop Time Status Admin Acetaminophen 650 MG Q6P PRN 03/19 2000 DCD PO Albuterol Sulfate 3 ML Q4-PRN PRN 03/19 2230 DCD 03/20 INH 1115 Albuterol Sulfate 2 PUF Q4-6 PRN PRN 03/19 2000 DCD INH Atorvastatin Calcium 10 MG 1700 03/20 1700 DCD 03/21 PO 1646 Budesonide/ 2 PUF BID 03/19 2100 DCD 03/22 Formoterol Fumarate INH 0757 Cefazolin Sodium 500 MG IQ8 03/20 0000 DC 03/22 IV 0756 Cholecalciferol 1,000 IU DAILY 03/20 0900 DCD 03/22 PO 0756 Cyanocobalamin 1,000 MCG DAILY 03/20 0900 DCD 03/22 PO 0756 Enoxaparin Sodium 40 MG DAILY 03/20 0900 DCD 03/22 SC 0756 Magnesium Oxide 400 MG BID 03/21 1108 DC 03/22 PO 03/22 0901 0757 Patient Medication 1 ED ONE ONE 03/22 0915 VT Teaching ED 03/22 0916 Prednisone 5 MG DAILY 03/22 09 DCD 03/22 PO 03/23 0901 0757 Last 24 Hrs of Lab/Shade Results Last 24 Hrs of Labs/Mics: Laboratory Tests 03/22/18 0628: Anion Gap 7, Estimated GFR > 60, Glucose 80, Calcium 9.1, Phosphorus 4.2, Magnesium 1.9, Total Bilirubin 0.8, AST 65 H, ALT 66, Albumin 3.4 L, CBC w Diff NO MAN DIFF REQ, RBC 5.01, MCV 88.9, MCH 28.8, MCHC 32.4 L, RDW 15.2 H, MPV 8.7, Gran % 72.6, Lymphocytes % 17.2 L, Monocytes % 8.0, Eosinophils % 1.8, Basophils % 0.4, Absolute Granulocytes 8.1 H, Absolute Lymphocytes 1.9, Absolute Monocytes 0.9 H, Absolute Eosinophils 0.2, Absolute Basophils 0 Assessment/Plan Assessment: Mr. 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 Assessment and plan Acute on chronic hypercarbic respiratory failure History of COPD History of left-sided diaphragmatic paralysis Leukocytosis likely steroid-induced History of cervical spondylosis status post surgery Left foot cellulitis Constipation History of hyperlipidemia * Acute on chronic hypercarbic respiratory failure secondary due to neuromuscular degenerative disease. Patient is being followed by Dr. Levy. Patient also has left-sided diaphragm paralysis and COPD. Patient is on nocturnal BiPAP and on 4 L nasal oxygen. We will continue the same. * Patient is on antibiotics which we will discontinue upon discharge. * We will give prednisone 5 mg one more dose tomorrow and then discontinue. * Syndrome with albuterol,BEVESPI, DuoNeb. Start him on Diamox 250 [Sunday/ ], theophylline SR 300 every 48, potassium and magnesium supplement. Problem List: 1. Hypercapnic respiratory failure Pain Ratin Pain Location: NONE Pain Goal: Remain pain free Pain Plan: TYLENOL Tomorrow's Labs & Rationales: CBC,BEP
[2018-03-22 08:19] LABS: ABSOLUTE BASOPHIL COUNT 0 /CUMM (0.0-0.2); ABSOLUTE EOSINOPHIL COUNT 0.2 /CUMM (0.0-0.7); ABSOLUTE GRANULOCYTE CT 8.1 /CUMM (1.4-6.5); ABSOLUTE LYMPH COUNT 1.9 /CUMM (1.2-3.4); ABSOLUTE MONOCYTE COUNT 0.9 /CUMM (0.10-0.60); BASOPHIL % 0.4 % (0.0-2.0); EOSINOPHIL % 1.8 % (0-5); GRANULOCYTE % 72.6 % (42.2-75.2); HEMATOCRIT 44.6 % (42-52); MEAN CORPUSCULAR HGB 28.8 PG (27.0-31.0); MEAN CORPUSCULAR HGB CONC 32.4 G/DL (33.0-37.0); MEAN CORPUSCULAR VOLUME 88.9 FL (80.0-94.0); MEAN PLATELET VOLUME 8.7 FL (7.4-10.4); PLATELET COUNT 254 /CUMM (130-400); RBC DISTRIBUTION WIDTH 15.2 % (11.5-14.5); RED BLOOD CELL CT 5.01 /CUMM (4.70-6.10); WHITE BLOOD CELL COUNT 11.1 /CUMM (4.8-10.8)
--- NOTE | 2018-03-22 10:42 | PN- Pulmonary ---
Subjective HPI/Critical Care Issues: Doing better and improved Objective Current Medications: Current Medications Sig/Jackie Start time Last Medication Dose Route Stop Time Status Admin Acetaminophen 650 MG Q6P PRN 03/19 2000 AC PO Albuterol Sulfate 3 ML Q4-PRN PRN 03/19 2230 AC 03/20 INH 1115 Albuterol Sulfate 2 PUF Q4-6 PRN PRN 03/19 2000 AC INH Atorvastatin Calcium 10 MG 1700 03/20 1700 AC 03/21 PO 1646 Budesonide/ 2 PUF BID 03/19 2100 AC 03/22 Formoterol Fumarate INH 0757 Cefazolin Sodium 500 MG IQ8 03/20 0000 AC 03/22 IV 0756 Cholecalciferol 1,000 IU DAILY 03/20 0900 AC 03/22 PO 0756 Cyanocobalamin 1,000 MCG DAILY 03/20 0900 AC 03/22 PO 0756 Enoxaparin Sodium 40 MG DAILY 03/20 0900 AC 03/22 SC 0756 Magnesium Oxide 400 MG BID 03/21 1108 DC 03/22 PO 03/22 0901 0757 Patient Medication 1 ED ONE ONE 03/22 0915 DC Teaching ED 03/22 0916 Prednisone 5 MG DAILY 03/22 09 AC 03/22 PO 03/23 0901 0757 Vital Signs & I&O Last 24 Hrs of Vitals and I&O: Vital Signs Date Time Temp Pulse Resp B/P B/P Pulse O2 O2 Flow FiO2 Mean Ox Delivery Rate 03/22 0800 99 Nasal 4.0L Cannula 03/22 0557 98.5 85 20 118/78 99 Nasal 4.0L Cannula 03/22 0505 91 96 03/22 0351 76 98 03/22 0032 77 96 03/22 0000 BIPAP 03/21 2248 68 98 03/21 2125 98.0 95 18 130/72 98 Nasal 4.0L Cannula 03/21 1906 94 Nasal 4.0L Cannula 03/21 1837 98.4 111 18 118/68 92 Nasal 4.0L Cannula 03/21 1600 97 Nasal 4.0L Cannula 03/21 1600 98.5 92 22 100/70 97 Nasal 4.0L Cannula 03/21 1346 93 Nasal 4.0L Cannula 03/21 1200 96 Nasal 4.0L Cannula Intake & Output 03/22 1600 03/22 0800 03/22 0000 Intake Total 260 Output Total 300 500 Balance -300 -240 Intake, IV 20 Intake, Oral 240 Output, Urine 300 500 Impression/Plan Impression/Plan Impression/Plan: ECHO CONCLUSIONS Normal size left ventricle. Normal left ventricular wall thickness. Normal left ventricular ejection fraction visually estimated at > 60%. Mild mitral regurgitation. Trace aortic regurgitation. Right ventricular systolic pressure estimated to be elevated at 42 mmHg. Mild pulmonic regurgitation. Final Date: 03 December 2017 General Appearance on bipap and in resp failure Skin No Rashes Skin Temp/Moisture Exam: Warm/Dry HEENT Atraumatic, PERRLA, EOMI, Mucous Membr. moist/pink Neck Supple Lymphatic No cervical lymphadenopathy Cardiovascular Regular Rate, Normal S1, Normal S2, No Murmurs Lungs Clear to Auscultation, Decrease air entery of left lung Abdomen Normal Bowel Sounds, Soft, No Tenderness Neurological Normal Speech, Strength at 5/5 X4 Ext, Normal Tone, Sensation Intact, Cranial Nerves 3-12 NL, Hyperreflexia x4 clonus fasculation Extremities No Clubbing, No Cyanosis, No Edema, Normal Pulses multiple fasciculation IMPRESSION PT with recent extensive cervical spine surg for severe djd, previous left sided diapharam paralysis with history of sig smoking, 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 and has copd aswell- however his copd is not severe enough to explain worsening hypercarbia(recent ct and pet scan showed bilateral lower lobe pulm contrast enhancing infiltrates highly sugg of dynamic atelectasis from his left sided diaphramatic paralysis and hypoventilation and neurodegen disease * Cervical disc disease / s/p surg as he had quadreperesis before with good recovery of function, and left diaphram paralysis is due to C spine disease * Atelectasis bibasilar due to cervical dz causeing diapharm dysfunction and left diapharamatic paralysis, and now prob neurodegenarative disease * COPD fev1 of 1.49 litres, with no copd exacerbatin * REcent Cellulitis foot on antibiotics improved * History of smoking 30 or more pack years quit 2015 * Personal history of malignant neoplasm of prostate s/p surg needs follw up in the future, no evidence of recurrence * Mixed restrictive and obstructive lung disease * recent colon polyp removal REC OK to dc on current meds and if bipap is arrange ok to dc Dc abx I gave him a script for a neb machine and duo neb to use tid prn Cont bipap at night needs avps at home Prednisone 5 mg daily for one more day and dc PT can go home on prn albuterol and bevespi ( he has at home) Cont spiriva and symbicort while in hospital and do not dc on this Dc on mag 400 daily Potassium otc supp Diamox 250 mg sunday and upon dc theophylline sr 300 mg qod upon dc Pt should avoid all sedative and hypnotics ADDENDUM Pt does qualify for bipap with back up rate AVAPS PT has sig hypercarbia with dx of Dx neuromuscular disease ICD G 70.9 * Has Sig dyspnea and resp failure, with sig symptoms of fatigue, severe dyspnea , morning headache and severe hypoxia and hypersomnia during the day time needing multiple admissions to the hospital * Subsequently on bipap with back up rate has had remarkable improvement of his symptoms and overall condition Pt clearly needs Bipap with a back up rate RESP assist device [id number] needs AVAPS (rate and tidal volume back up) * ABG shows baseline pco2 of 71 at baseline while awake on baseline oxygen of 2 litres * Nocturnal oxymety shows severe desat on oxygen with less than 88 percent for a total of one hour (60 mins) * FOrced vital capacity is low at 1.4 litres which is less than 50 percent predicted for the patient (predicted is 3.4 litres) PT is on Bipap of 16/6 with a back up rate of 12 and hence he needs Respiratory assist device avps with the same settings
[2018-03-22] MEDS ORDERED: ACETAZOLAMIDE250 M1 PO ×2 (11:58→12:11)
[2018-03-22] MEDS ORDERED: THEOCHRON300 MG PO ×2 (11:58→12:11)
[2018-03-22] MEDS ORDERED: IPRAT-ALBUT 0.5-3 ML NEB (11:59)
[2018-03-22] MEDS ORDERED: MAGNESIUM400 M1 PO ×2 (12:01→12:11)
[2018-03-22] MEDS ORDERED: PREDNISONE5 M1 PO ×2 (12:04→12:11)
== END 2018-03-22 11:25 | disposition home health service (06) | DRG 189 ==
LOC: ERH 13:58 → ERHI 19:01 → CRI 19:01 → ENRESERV 20:32 → CRI 21:36 → 2NB 03-21 18:33 → ENPENDDIS 03-22 12:34 → ENTRNSPT 03-22 12:50 → EDTRNSPT 03-22 12:51 → EDTRNSPTSTS 03-22 12:51 → CMPTRNSPT 03-22 12:59
PROVIDERS: Hospitalist; Internal Medicine; Physician Assistant Medical; Student in an Organized Health Care Education/Training Program
PROC: 5A09357 Assistance with Respiratory Ventilation, Less than 24 Consecutive Hours, Continuous Positive Airway Pressure (ICD-10-PCS; principal; 2018-03-19)
DX: J96.22 Acute and chronic respiratory failure with hypercapnia (principal); G70.9 Myoneural disorder, unspecified; Z99.81 Dependence on supplemental oxygen; L03.116 Cellulitis of left lower limb; J44.9 Chronic obstructive pulmonary disease, unspecified; J98.6 Disorders of diaphragm; K59.09 Other constipation; J96.21 Acute and chronic respiratory failure with hypoxia; M47.892 Other spondylosis, cervical region; Z85.46 Personal history of malignant neoplasm of prostate; Z85.828 Personal history of other malignant neoplasm of skin; Z86.010 Personal history of colon polyps; E78.5 Hyperlipidemia, unspecified; D72.829 Elevated white blood cell count, unspecified; T38.0X5A Adverse effect of glucocorticoids and synthetic analogues, initial encounter; R00.0 Tachycardia, unspecified; M50.30 Other cervical disc degeneration, unspecified cervical region; Z91.011 Allergy to milk products; Z88.5 Allergy status to narcotic agent; Z96.651 Presence of right artificial knee joint; Z90.79 Acquired absence of other genital organ(s); Z87.891 Personal history of nicotine dependence
CPT/HCPCS: 2NBSP; CCU; 36415; 36592; 71045; 80307; 81003; 82436; 93005; 93010; 94150; 96374; 99291; J0690; J1650; J2930; J3490; J7512